=== PATIENT | male | born 1965 | race Hispanic/Latino ===

== ENCOUNTER 2017-04-19 23:08 | Inpatient (IN) | payer MEDICAID ==
--- NOTE | 2017-04-19 23:25 | ED PDOC ---
Arrival/HPI - General Time Seen by Provider: 04/19/17 23:10 Historian: Family (Sister), EMS - History of Present Illness Narrative History of Present Illness (Text): 04/19/17 23:16 Catracho Gray is a 52 year old male smoker, whose past medical history includes hypertension, chronic alcohol abuse, and chronic opiate abuse, who presents to the Emergency department brought in by EMS for unresponsiveness. EMS reports patient was found unresponsive in bed prior to arrival by family. EMS reports some improvement after receiving 0.8mg of Narcan en route. Sister reports patient was last seen normal at 22:00 yesterday evening and was lying in bed all throughout the day. Sister notes patient was recently discharged from [facility] for questionable "mini-stroke" 10 days prior and patient regularly takes Methadone and Oxycontin. HPI and ROS limited due to patient's altered mental status. Time/Duration: Prior to Arrival Symptom Course: Unchanged Activities at Onset: Rest, Light Context: Home Past Medical History - Provider Review Nursing Documentation Reviewed: Yes Family/Social History - Physician Review Nursing Documentation Reviewed: Yes Family/Social History: Unknown Family HX Allergies/Home Meds Allergies/Adverse Reactions: Allergies No Known Allergies Allergy (Verified 04/19/17 23:24) Home Medications: Home Meds Medication Instructions Recorded Confirmed Unobtainable 04/19/17 04/19/17 Review of Systems - Review of Systems Systems not reviewed;Unavailable: Altered Mental Status Physical Exam Vital Signs Reviewed: Yes Vital Signs Temp Pulse Resp BP Pulse Ox 04/20/17 02:41 88 15 106/79 99 04/20/17 02:34 85 15 100/77 98 04/20/17 02:24 88 15 100/74 99 04/20/17 02:14 90 15 102/75 99 04/20/17 02:04 92 H 15 106/79 99 04/20/17 01:54 95 H 15 113/75 100 04/20/17 01:44 95 H 15 153/96 H 99 04/20/17 01:20 92 H 15 97/70 L 100 04/20/17 01:01 93 H 15 100/71 99 04/20/17 00:55 95 H 15 104/76 99 04/20/17 00:50 15 99 04/20/17 00:45 107 H 26 H 175/92 H 94 L 04/20/17 00:33 105 H 26 H 94/62 L 81 L 04/19/17 23:53 118 H 25 H 145/97 H 93 L 04/19/17 23:49 98.4 F 114 H 25 H 139/91 H 94 L 04/19/17 23:30 118 H 25 H 95 04/19/17 23:19 121 H 26 H 93 L Temperature: Afebrile Blood Pressure: Normal Pulse: Tachycardic Respiratory Rate: Normal Pain Distress: None Mental Status: Positive for: Lethargic, other (Non-communicative) - Systems Exam Head: Present: Atraumatic, Normocephalic Pupils: Present: Other (Pupils dilated but reactive) Conjunctiva: Present: Normal Ears: Present: NORMAL TM Mouth: Present: Dry Neck: Present: Normal Range of Motion Respiratory/Chest: Present: Clear to Auscultation, Good Air Exchange. No: Respiratory Distress, Accessory Muscle Use Cardiovascular: Present: Normal S1, S2, Tachycardic. No: Murmurs Abdomen: Present: Normal Bowel Sounds. No: Tenderness, Distention, Peritoneal Signs Upper Extremity: No: Cyanosis, Edema Lower Extremity: Present: Neurovascularly Intact. No: Edema Neurological: Present: Other (Tonic posturing of upper and lower extremities, non-communicative) Skin: Present: Warm, Dry, Normal Color. No: Rashes Psychiatric: Present: Lethargic Medical Decision Making ED Course and Treatment: 04/19/17 23:16 Impression: 52 year old male presents for unresponsiveness prior to arrival. Differential Diagnosis included but are not limited to: seizure vs. sepsis vs. cerebral hemorrhage Plan: -- CT Head w/o contrast -- EKG -- Chest X-ray -- Labs, VBG, blood cultures -- Urinalysis, urine cultures -- Ativan -- Reassess and disposition Progress Notes: 04/19/17 23:55 Pt tachycardic, lactate:8,4, WBC: 16.0. Code Sepsis called. 04/20/17 00:20 Reviewed EKG, sinus tachycardia at 107 bpm. Non-specific T wave changes, 04/20/17 00:36 Pt with periods of apnea, decreasing O2 saturation, will intubate. 04/20/17 00:40 PROCEDURE: INTUBATION Performed by the emergency provider Consent: Discussion of the risks, benefits, and alternatives to the procedure, along with informed consent was precluded by the urgency of the procedure and the patient condition. Timeout: A timeout to verify the correct patient, procedure, and site was performed. Indication: Respiratory distress, decreasing oxygen saturation Pre-oxygenation: [id number] Medications: Etomidates, Propofol. See MAR for details. ETT Size: 7.5 gauge Confirmation: Cords directly visualized as tube passed, good bilateral breath sounds, positive CO2 detector color change, tube fogging, adequate chest rise, improving pulse oximetry reading, improved skin color, and absence of gastric sounds,. ETT Secured: The cuff was inflated and the tube was secured appropriately at a distance of 23 cm at the lip. Post-Procedure: There were no immediate complications. CXR Confirmation: Yes 04/20/17 00:53 Case discussed with medical scientific officer agricultural economics teacher, who is aware and agrees with plan. 04/20/17 00:[address] Gleason, security field supervisor, who is aware and agrees with plan. Accepts pt in to hospitalist service. Pt will be admitted to ICU for sepsis and altered mental status. 04/20/17 01:28 Reviewed radiology, Chest X-ray shows ET tube above the nathalie, no acute processes. CT Head shows: Left lateral orbital skin piercing. No intracranial hemorrhage. No intracranial edema. No evidence of infarct. There is partial opacification of the right maxillary sinus. It could be chronic or alternatively represent acute sinusitis. Clinical correlation is recommended. The mastoid air cells are clear. Questionable periapical lucency left mandibular canine and premolar teeth incompletely evaluated. IMPRESSION: No acute intracranial findings. Sinus disease. - Critical Care Critical Care Minutes: 45 minutes - Lab Interpretations Lab Results: 04/19/17 23:27 04/19/17 23:27 Lab Results 04/20/17 00:00: Urine Opiates Screen Negative, Urine Methadone Screen Positive H , Ur Barbiturates Screen Negative, Ur Phencyclidine Scrn Negative, Ur Amphetamines Screen Negative, U Benzodiazepines Scrn Positive H, U Oth Cocaine Metabols Negative, U Cannabinoids Screen Negative 04/19/17 23:27: Sodium 143, Chloride 99, Potassium 6.3 H*, Carbon Dioxide 22, Anion Gap 28 H, BUN 33 H, Creatinine 1.4, Est GFR ( Amer) > 60, Est GFR ( Non-Af Amer) 53, Random Glucose 129 H, Calcium 10.3, Phosphorus 4.5, Magnesium 2.2, Total Bilirubin 1.4 H, AST 53, ALT 19, Alkaline Phosphatase 206 H, Total Protein 9.7 H, Albumin 4.9 H, Globulin 4.8, Albumin/Globulin Ratio 1.0 L 04/19/17 23:27: pO2 60 H, VBG pH 7.27 L, VBG pCO2 60.0, VBG HCO3 27.6, VBG Total CO2 29.4 H, VBG O2 Sat (Calc) 92.2 H, VBG Base Excess -0.6 L, VBG Potassium 9.9 H*, Sodium 137.0, Chloride 98.0, Glucose 133 H, Lactate 8.4 H*, FiO2 21.0, Venous Blood Potassium 9.9 H* 04/19/17 23:27: Urine Color Yellow, Urine Appearance Turbid, Urine pH 6.0, Ur Specific Axis >= 1.030, Urine Protein >=300 H, Urine Glucose (UA) Negative, Urine Ketones Negative, Urine Blood Large H, Urine Nitrate Negative, Urine Bilirubin Negative, Urine Urobilinogen 0.2, Ur Leukocyte Esterase Negative, Urine RBC Tntc, Urine WBC 0 - 2, Ur Epithelial Cells 1 - 3, Calcium Oxalate Crystal Mod, Triple Phos Crystals Many, Urine Bacteria Many 04/19/17 23:27: PT 10.8, INR 1.00, APTT 28.7 04/19/17 23:27: WBC 16.1 H, RBC 5.41, Hgb 18.7 H*, Hct 57.0 H*, MCV 105.4 H, MCH 34.6, MCHC 32.8, RDW 12.6, Plt Count 208, MPV 11.6 H, Gran % 72.1 H, Lymph % (Auto) 13.2 L, Mccreary % (Auto) 14.5 H, Eos % (Auto) 0.0 L, Baso % (Auto) 0.2, Gran # 11.60 H, Lymph # 2.1, Mccreary # 2.3 H, Eos # 0.0, Baso # 0.03 04/19/17 23:13: POC Glucose (mg/dL) 73 04/19/17 00:29: pCO2 44, pO2 44.0 L*, HCO3 32.0 H, ABG pH 7.47 H, ABG Total CO2 33.4 H, ABG O2 Saturation 88.0 L, ABG O2 Content 19.7, ABG Base Excess 7.2 H, ABG Hemoglobin 16.8, ABG Carboxyhemoglobin 4.2 H, POC ABG HHb (Measured) 11.4 H , ABG Methemoglobin 0.7, ABG O2 Capacity 22.4, Hgb O2 Saturation 83.7 L, FiO2 32.0 I have reviewed the lab results: Yes - RAD Interpretation Radiology Orders: 04/19/17 23:31 CHEST PORTABLE [RAD] Stat 04/19/17 23:32 HEAD W/O CONTRAST [CT] Stat - EKG Interpretation Interpreted by ED Physician: Yes Type: 12 lead EKG - Medication Orders Current Medication Orders: Heparin Sodium (Porcine) (Heparin) 5,000 units SC Q12 CATHERINE PRN Reason: Protocol Propofol (Diprivan) 1,000 mg in 100 mls @ 2.722 mls/hr IV .Q24H PRN; Protocol; 5 MCG/KG/MIN PRN Reason: TITRATE PER MD ORDER Last Admin: 04/20/17 01:55 Dose: 2.722 mls/hr eMAR Start Stop Document 04/20/17 01:55 SS (Rec: 04/20/17 01:55 SS [id number]) Intravenous Solution Start Date 04/20/17 Start Time 01:55 Sodium Chloride (Sodium Chloride 0.9%) 1,000 mls @ 100 mls/hr IV .Q10H CATHERINE Last Admin: 04/20/17 03:18 Dose: 100 mls/hr eMAR Start Stop Document 04/20/17 03:18 MHA (Rec: 04/20/17 03:[address] [id number]) Intravenous Solution Start Date 04/20/17 Start Time 03:18 Vancomycin HCl (Vancomycin 1gm) 1 gm in 250 mls @ 167 mls/hr IVPB DAILY CATHERINE PRN Reason: Protocol Pantoprazole Sodium (Protonix Inj) 40 mg IVP DAILY CATHERINE Discontinued Medications Albuterol Sulfate (Albuterol 0.5% Inhal Joann (2.5 Mg/0.5 Ml) Ud) 15 mg IH STAT STA Stop: 04/20/17 00:30 Last Admin: 04/20/17 01:00 Dose: 15 mg Dextrose (Dextrose 50% Inj) 50 ml IVP ONCE ONE Stop: 04/20/17 00:08 Last Admin: 04/20/17 01:17 Dose: 50 ml IVP Administration Document 04/20/17 01:17 SS (Rec: 04/20/17 01:17 SS [id number]) Charges for Administration # of IVP Administrations 1 Etomidate (Amidate) 20 mg IVP STAT STA Stop: 04/20/17 00:46 Last Admin: 04/20/17 01:56 Dose: 20 mg IVP Administration Document 04/20/17 01:56 SS (Rec: 04/20/17 01:56 SS [id number]) Charges for Administration # of IVP Administrations 1 Sodium Chloride 2,720 ml/ IV (SUPPLIES) 2,720 mls @ 5,443.08 mls/hr IV ONCE ONE PRN Reason: 60 ML/KG/HR Stop: 04/20/17 00:06 Last Admin: 04/20/17 00:17 Dose: 5,443.08 mls/hr eMAR Start Stop Document 04/20/17 00:17 SS (Rec: 04/20/17 01:17 SS [id number]) Intravenous Solution Start Date 04/20/17 Start Time 00:17 Ceftriaxone Sodium (Rocephin 2 Gm Ivpb) 2 gm in 100 mls @ 100 mls/hr IVPB STAT STA PRN Reason: Protocol Stop: 04/20/17 01:21 Last Admin: 04/20/17 00:55 Dose: 100 mls/hr eMAR Start Stop Document 04/20/17 00:55 SS (Rec: 04/20/17 01:18 SS [id number]) Intravenous Solution Start Date 04/20/17 Start Time 00:55 Vancomycin HCl (Vancomycin 1gm) 1 gm in 250 mls @ 167 mls/hr IVPB STAT STA PRN Reason: Protocol Stop: 04/20/17 01:51 Last Admin: 04/20/17 02:11 Dose: 167 mls/hr eMAR Start Stop Document 04/20/17 02:11 SS (Rec: 04/20/17 02:12 SS [id number]) Intravenous Solution Start Date 04/20/17 Start Time 02:00 Piperacillin Sod/Tazobactam Sod (Zosyn 3.375 In Ns 100ml) 100 mls @ 200 mls/hr IVPB STAT STA PRN Reason: Protocol Stop: 04/20/17 02:55 Last Admin: 04/20/17 03:17 Dose: 200 mls/hr eMAR Start Stop Document 04/20/17 03:17 MHA (Rec: 04/20/17 03:17 MHA [id number]) Intravenous Solution Start Date 04/20/17 Start Time 03:17 End Date 04/20/17 End time 04:17 Total Infusion Time 60 Insulin Human Regular (Humulin R) 10 units IVP STAT STA Stop: 04/20/17 00:08 Last Admin: 04/20/17 01:17 Dose: 10 units MAR Blood Glucose Document 04/20/17 01:17 SS (Rec: 04/20/17 01:17 SS [id number]) Blood Glucose Finger Stick Blood Glucose (70-120) 73 IVP Administration Document 04/20/17 01:17 SS (Rec: 04/20/17 01:17 SS [id number]) Charges for Administration # of IVP Administrations 1 Lorazepam (Ativan) 2 mg IVP ONCE ONE Stop: 04/19/17 23:26 Last Admin: 04/19/17 23:50 Dose: 2 mg IVP Administration Document 04/19/17 23:50 SS (Rec: 04/19/17 23:50 SS [id number]) Charges for Administration # of IVP Administrations 1 Lorazepam (Ativan) 2 mg IVP ONCE ONE Stop: 04/19/17 23:31 Last Admin: 04/19/17 23:50 Dose: 2 mg IVP Administration Document 04/19/17 23:50 SS (Rec: 04/19/17 23:50 SS [id number]) Charges for Administration # of IVP Administrations 1 Propofol (Diprivan) 50 mg IVP ONCE ONE Stop: 04/20/17 00:46 Last Admin: 04/20/17 02:16 Dose: 50 mg IVP Administration Document 04/20/17 02:16 SS (Rec: 04/20/17 02:16 SS [id number]) Charges for Administration # of IVP Administrations 1 Sodium Bicarbonate (Sodium Bicarbonate 8.4% (50 Meq) Syringe) 50 meq IVP ONCE ONE Stop: 04/20/17 00:11 Last Admin: 04/20/17 00:17 Dose: 50 meq IVP Administration Document 04/20/17 00:17 SS (Rec: 04/20/17 01:18 SS [id number]) Charges for Administration # of IVP Administrations 1 Sodium Polystyrene Sulfonate (Kayexalate Oral Susp) 30 gm GA STAT STA Stop: 04/20/17 00:12 Last Admin: 04/20/17 01:56 Dose: 30 gm - Scribe Statement The provider has reviewed the documentation as recorded by the Otis Mayfield Provider Scribe Attestation: All medical record entries made by the Otis were at my direction and personally dictated by me. I have reviewed the chart and agree that the record accurately reflects my personal performance of the history, physical exam, medical decision making, and the department course for this patient. I have also personally directed, reviewed, and agree with the discharge instructions and disposition. Disposition/Present on Arrival - Present on Arrival Any Indicators Present on Arrival: No History of DVT/PE: No History of Uncontrolled Diabetes: No Urinary Catheter: No History of Decub. Ulcer: No History Surgical Site Infection Following: None - Disposition Have Diagnosis and Disposition been Completed?: Yes Diagnosis: Altered mental status, Sepsis, Hyperkalemia Disposition: HOSPITALIZED Disposition Time: 01:20 Patient Plan: Admission Patient Problems: Current Active Problems Problem Status Onset Altered mental status Acute Hyperkalemia Acute Sepsis Acute Condition: GUARDED
[2017-04-19 23:47] LABS: URINE BILIRUBIN NEGATIVE (NEGATIVE); URINE BLOOD LARGE (NEGATIVE); URINE GLUCOSE (UA) NEGATIVE (NEGATIVE); URINE KETONE NEGATIVE (NEGATIVE); URINE LEUKOCYTE ESTERASE NEGATIVE Leu/uL (NEGATIVE); URINE PROTEIN >=300 mg/dL (<30 mg/dL); URINE UROBILINOGEN 0.2 E.U./dL (<1 E.U./dL); VENOUS BLOOD GAS BASE EXCESS -0.6 mmol/L (0.0-2.0); VENOUS BLOOD PH 7.27 (7.32-7.43)
[2017-04-19 23:56] LABS: ALKALINE PHOSPHATASE 206 U/L (38-126); ALT/SGPT 19 U/L (7-56); AST/SGOT 53 U/L (17-59); BILIRUBIN,TOTAL 1.4 mg/dL (0.2-1.3); BLOOD UREA NITROGEN 33 mg/dL (7-21); CALCIUM 10.3 mg/dL (8.4-10.5); CARBON DIOXIDE 22 mmol/L (21-33); CHLORIDE 99 mmol/L (98-107); GFR AFRICAN-AMERICAN > 60; GLUCOSE,RANDOM 129 mg/dL (70-110); MAGNESIUM 2.2 mg/dL (1.7-2.2); PHOSPHOROUS 4.5 mg/dL (2.5-4.5); POTASSIUM 6.3 mmol/L (3.6-5.0); SODIUM 143 mmol/L (132-148); TOTAL PROTEIN 9.7 g/dL (5.8-8.3)
[2017-04-20] LABS: PARTIAL THROMBOPLASTIN TIME 28.7 Seconds (23.7-30.8)
[2017-04-20 00:01] LABS: BASO # 0.03 K/mm3 (0.0-2.0); BASO % 0.2 % (0.0-3.0); GRAN # 11.6 (1.4-6.5); GRAN % 72.1 % (50.0-68.0); LYMPH # 2.1 (1.2-3.4); LYMPH % 13.2 % (22.0-35.0); MEAN CORPUSCULAR HEMOGLOBIN 34.6 pg (25.0-35.0); MEAN CORPUSCULAR HGB CONC 32.8 g/dl (31.0-37.0); MEAN PLATELET VOLUME 11.6 fl (7.0-11.0); MONO # 2.3 (0.1-0.6); MONO % 14.5 % (1.0-6.0); RED CELL DISTRIBUTION WIDTH 12.6 % (11.5-14.5); WHITE BLOOD COUNT 16.1 10^3/ul (4.5-11.0)
[2017-04-20 00:07] LABS: URINE APPEARANCE TURBID (CLEAR); URINE COLOR YELLOW (YELLOW)
[2017-04-20] MEDS ORDERED: Dextrose 50% SYRINGE Inj (50 ml) IVP ONE (00:07)
[2017-04-20] MEDS ORDERED: Insulin Regular 1 UNITS/0.01 ML ML IVP STA (00:07)
[2017-04-20] MEDS ORDERED: Albuterol 0.083% Inhal Sol (2.5 mg/3 mL) UD IH STA (00:09)
[2017-04-20] MEDS ORDERED: Sodium Bicarbonate (8.4%) 50 Meq Syringe IVP ONE (00:10)
[2017-04-20] MEDS ORDERED: Sod Polystyrene Sulf 15 gm/60 ml Susp PR STA (00:11)
[2017-04-20 00:14] LABS: URINE RBC TNTC /hpf (0-2)
[2017-04-20 00:15] LABS: URINE WBC 0 - 2 /hpf (0-6)
[2017-04-20 00:16] LABS: URINE CALCIUM OXALATE CRYSTALS MOD /hpf
[2017-04-20 00:22] LABS: URINE TRIPLE PHOSPHATE CRYSTAL MANY /hpf
[2017-04-20] MEDS ORDERED: cefTRIAXone 2 GM IN NS 2 GM/100 ML BAG IVPB STA (00:22)
[2017-04-20] MEDS ORDERED: Vancomycin 1gm in NS 250ml 1 GM/250 ML BAG IVPB STA (00:22)
[2017-04-20 00:23] LABS: URINE BACTERIA MANY (NEG)
[2017-04-20] MEDS ORDERED: Albuterol 0.5% Inhal Sol (2.5 mg/0.5 ml) UD IH STA (00:29)
[2017-04-20 00:33] LABS: ARTERIAL BLOOD GAS O2 CAPACITY 22.4 mL/dl (16-24); ARTERIAL BLOOD GAS O2 CONTENT 19.7 ML/dl (15-23); ARTERIAL BLOOD GAS PH 7.47 (7.35-7.45); ARTERIAL BLOOD HGB O2 SAT 83.7 % (95.0-98.0); CARBOXYHEMOGLOBIN 4.2 % (0.5-1.5); HHB 11.4 % (0-5); METHEMOGLOBIN 0.7 % (0.0-3.0)
[2017-04-20] MEDS ORDERED: Etomidate 20 mg/10ml Inj IV ONE (00:37)
[2017-04-20] MEDS ORDERED: Propofol 10 mg/ml Inj (20 ML) ONE (00:44)
[2017-04-20] MEDS ORDERED: Etomidate 20 mg/10ml Inj IVP STA (00:45)
[2017-04-20] MEDS ORDERED: Propofol 10 mg/ml Inj (20 ML) IVP ONE (00:45)
--- NOTE | 2017-04-20 01:17 | CT ---
EXAM: CT Head Without Intravenous Contrast EXAM DATE/TIME: 04/19/2017 11:32 PM CLINICAL HISTORY: 52 years old, male; Signs and symptoms; Altered mental status/memory loss; Additional info: AMS TECHNIQUE: Axial computed tomography images of the head/brain without intravenous contrast. All CT scans at this facility use one or more dose reduction techniques, viz.: automated exposure control; ma/kV adjustment per patient size (including targeted exams where dose is matched to indication; i.e. head); or iterative reconstruction technique. COMPARISON: No relevant prior studies available. FINDINGS: Left lateral orbital skin piercing. No intracranial hemorrhage. No intracranial edema. No evidence of infarct. There is partial opacification of the right maxillary sinus. It could be chronic or alternatively represent acute sinusitis. Clinical correlation is recommended. The mastoid air cells are clear. Questionable periapical lucency left mandibular canine and premolar teeth incompletely evaluated. IMPRESSION: No acute intracranial findings. Sinus disease.
[2017-04-20] MEDS: Propofol 10 mg/ml 1,000 MG/100 ML VIAL IV PRN ×3 (01:55→21:00)
[2017-04-20] MEDS ORDERED: Piperacillin/Tazobact 3.375 gm 100 ML IVPB STA (02:26)
[2017-04-20] MEDS: Sodium Chloride 0.9% 1,000 ML IV SCH ×2 (03:18→17:00)
[2017-04-20 03:52] VITALS: BMI 27.7
[2017-04-20 05:25] LABS: ARTERIAL BLOOD GAS HCO3 25.4 mmol/L (21-28)
[2017-04-20 05:47] LABS: MEAN CELL VOLUME 105.4 fl (80.0-105.0)
[2017-04-20 05:58] LABS: BASO # 0.02 K/mm3 (0.0-2.0); BASO % 0.2 % (0.0-3.0); GRAN # 6.69 (1.4-6.5); GRAN % 70.1 % (50.0-68.0); HEMATOCRIT 43.3 % (42.0-52.0); LYMPH # 1.6 (1.2-3.4); LYMPH % 16.8 % (22.0-35.0); MEAN CELL VOLUME 103.1 fl (80.0-105.0); MEAN CORPUSCULAR HEMOGLOBIN 33.1 pg (25.0-35.0); MEAN CORPUSCULAR HGB CONC 32.1 g/dl (31.0-37.0); MEAN PLATELET VOLUME 11.1 fl (7.0-11.0); MONO # 1.2 (0.1-0.6); MONO % 12.9 % (1.0-6.0); RED CELL DISTRIBUTION WIDTH 12.5 % (11.5-14.5); WHITE BLOOD COUNT 9.5 10^3/ul (4.5-11.0)
[2017-04-20 06:02] LABS: BLOOD UREA NITROGEN 28 mg/dL (7-21); CALCIUM 8.2 mg/dL (8.4-10.5); CARBON DIOXIDE 27 mmol/L (21-33); CHLORIDE 109 mmol/L (98-107); GFR AFRICAN-AMERICAN > 60; GLUCOSE,RANDOM 105 mg/dL (70-110); POTASSIUM 4.3 mmol/L (3.6-5.0); SODIUM 143 mmol/L (132-148)
[2017-04-20 06:04] LABS: VENOUS BLOOD GAS BASE EXCESS 3.1 mmol/L (0.0-2.0); VENOUS BLOOD PH 7.41 (7.32-7.43)
--- NOTE | 2017-04-20 07:03 | CP.PCM.HP ---
<Len Shaffer - Last Filed: 04/20/17 07:09> History of Present Illness - History of Present Illness History of Present Illness: Chief Complaint Patient found unresponsive HPI Patient is a 52 year old male with a past medical history of HTN, chronic alcohol abuse, and chronic opiate abuse who was found unresponsive by family. EMS was called and administered 0.8 narcan which successfully aroused the patient. When brought to the ED patient was given 2 mg of Ativan. Patient's oxygen saturation was in the upper 80's and was intubated for airway protection. Great portion of exam was given by ED physician. ROS and remainder of history was limited due to patient's being intubated. Present on Admission - Present on Admission Any Indicators Present on Admission: No Review of Systems - Review of Systems Systems not reviewed;Unavailable: Intubated Past Patient History - Past Social History Smoking Status: Current Some Days Smoker - CARDIAC Hx Hypertension: Yes - PULMONARY Hx Respiratory Disorders: No - NEUROLOGICAL HX Cerebrovascular Accident: Yes - HEENT Hx HEENT Problems: No - RENAL Hx Chronic Kidney Disease: No - ENDOCRINE/METABOLIC Hx Endocrine Disorders: No - HEMATOLOGICAL/ONCOLOGICAL Hx Blood Disorders: No - INTEGUMENTARY Hx Dermatological Problems: No Other/Comment: hole in the lower back,tatoos on the left arm and back of the neck,piercing onth left eyebrow - MUSCULOSKELETAL/RHEUMATOLOGICAL Hx Falls: No - GASTROINTESTINAL Hx Gastrointestinal Disorders: No - GENITOURINARY/GYNECOLOGICAL Hx Genitourinary Disorders: No - PSYCHIATRIC Hx Psychophysiologic Disorder: No Hx Substance Use: Yes (oxycodone,methadone) Other/Comment: chronic alcohol abuse,opiate abuse on methadone and oxycontin - SURGICAL HISTORY Hx Surgeries: No - ANESTHESIA Hx Anesthesia: Yes Meds Allergies/Adverse Reactions: Allergies Allergy/AdvReac Type Severity Reaction Status Date / Time No Known Allergies Allergy Verified 04/19/17 23:24 Physical Exam - Constitutional Appears: Toxic - Head Exam Head Exam: ATRAUMATIC, NORMAL INSPECTION, NORMOCEPHALIC - ENT Exam Additional comments: Intubated - Neck Exam Neck exam: Positive for: Normal Inspection - Respiratory Exam Respiratory Exam: Clear to Auscultation Bilateral, NORMAL BREATHING PATTERN - Cardiovascular Exam Cardiovascular Exam: REGULAR RHYTHM, +S1, +S2 - GI/Abdominal Exam GI & Abdominal Exam: Normal Bowel Sounds, Soft - Extremities Exam Extremities exam: Positive for: normal inspection - Neurological Exam Neurological exam: Altered - Skin Skin Exam: Normal Color, Warm Results - Vital Signs Recent Vital Signs: Last Vital Signs Temp 98.7 F 04/20/17 04:00 Pulse 82 04/20/17 06:00 Resp 15 04/20/17 06:00 BP 125/77 04/20/17 06:00 Pulse Ox 100 04/20/17 06:00 - Labs Result Diagrams: 04/20/17 05:00 04/20/17 05:00 Labs: Laboratory Results - last 24 hr 04/20/17 04/20/17 04/20/17 05:00 05:00 05:00 WBC 9.5 D RBC 4.20 Hgb 13.9 L D Hct 43.3 MCV 103.1 MCH 33.1 MCHC 32.1 RDW 12.5 Plt Count 151 MPV 11.1 H Gran % 70.1 H Lymph % (Auto) 16.8 L Preble % (Auto) 12.9 H Eos % (Auto) 0.0 L Baso % (Auto) 0.2 Gran # 6.69 H Lymph # 1.6 Preble # 1.2 H Eos # 0.0 Baso # 0.02 pCO2 pO2 208 H HCO3 ABG pH ABG Total CO2 ABG O2 Saturation ABG Base Excess ABG Potassium VBG pH 7.41 VBG pCO2 45.0 VBG HCO3 28.5 H VBG Total CO2 29.9 H VBG O2 Sat (Calc) 100.0 H VBG Base Excess 3.1 H VBG Potassium 4.3 Sodium 140.0 Chloride 109.0 H Glucose 105 Lactate 1.3 FiO2 21.0 Potassium Carbon Dioxide Anion Gap BUN Creatinine Est GFR ( Amer) Est GFR (Non-Af Amer) Random Glucose Lactic Acid Calcium Arterial Blood Potassium Venous Blood Potassium 4.3 Alcohol, Quantitative < 10 04/20/17 04/20/17 04/20/17 05:00 05:00 05:21 WBC RBC Hgb Hct MCV MCH MCHC RDW Plt Count MPV Gran % Lymph % (Auto) Preble % (Auto) Eos % (Auto) Baso % (Auto) Gran # Lymph # Preble # Eos # Baso # pCO2 41 pO2 227.0 H HCO3 25.4 ABG pH 7.40 ABG Total CO2 26.7 ABG O2 Saturation 99.2 H ABG Base Excess 0.5 ABG Potassium 3.9 VBG pH VBG pCO2 VBG HCO3 VBG Total CO2 VBG O2 Sat (Calc) VBG Base Excess VBG Potassium Sodium 143 140.0 Chloride 109 H 112.0 H Glucose 98 Lactate 1.2 FiO2 100.0 Potassium 4.3 Carbon Dioxide 27 Anion Gap 11 BUN 28 H Creatinine 1.0 Est GFR ( Amer) > 60 Est GFR (Non-Af Amer) > 60 Random Glucose 105 Lactic Acid 1.1 Calcium 8.2 L Arterial Blood Potassium 3.9 Venous Blood Potassium Alcohol, Quantitative Assessment & Plan - Assessment and Plan (Free Text) Plan: Assessment 52 year old male found unresponsive at home with history of opiate and methadone abuse Plan 1. Leukocytosis - Find source - ID consulted; recs appreciated - Procalcitonin - Vanc/Zosyn 2. DVT/GI prophylaxis - Heparin/Protonix <Sami Gleason MD - Last Filed: 04/21/17 11:41> Results - Vital Signs Recent Vital Signs: Last Vital Signs Temp 99.4 F 04/21/17 04:00 Pulse 81 04/21/17 06:50 Resp 15 04/20/17 06:00 BP 142/82 04/21/17 06:40 Pulse Ox 96 04/21/17 06:50 - Labs Result Diagrams: 04/21/17 05:00 04/21/17 05:00 Labs: Laboratory Results - last 24 hr 04/20/17 04/21/17 04/21/17 05:00 05:00 05:00 WBC 9.1 RBC 4.45 Hgb 14.7 Hct 45.8 MCV 102.9 MCH 33.0 MCHC 32.1 RDW 12.6 Plt Count 153 MPV 11.1 H pCO2 pO2 HCO3 ABG pH ABG Total CO2 ABG O2 Saturation ABG O2 Content ABG Base Excess ABG Hemoglobin ABG Carboxyhemoglobin POC ABG HHb (Measured) ABG Methemoglobin ABG O2 Capacity Hgb O2 Saturation FiO2 Sodium 144 Potassium 3.9 Chloride 109 H Carbon Dioxide 28 Anion Gap 11 BUN 19 Creatinine 1.0 Est GFR ( Amer) > 60 Est GFR (Non-Af Amer) > 60 Random Glucose 87 Calcium 8.7 Total Bilirubin 1.0 AST 56 ALT 28 Alkaline Phosphatase 120 Ammonia Total Protein 6.2 Albumin 3.1 Globulin 3.2 Albumin/Globulin Ratio 1.0 L Procalcitonin 0.60 H 04/21/17 04/21/17 05:23 08:35 WBC RBC Hgb Hct MCV MCH MCHC RDW Plt Count MPV pCO2 39 pO2 53.0 L HCO3 24.7 ABG pH 7.41 ABG Total CO2 25.9 ABG O2 Saturation 92.2 L ABG O2 Content 16.5 ABG Base Excess 0.1 ABG Hemoglobin 13.1 ABG Carboxyhemoglobin 1.7 H POC ABG HHb (Measured) 7.6 H ABG Methemoglobin 1.1 ABG O2 Capacity 17.9 Hgb O2 Saturation 89.6 L FiO2 50.0 Sodium Potassium Chloride Carbon Dioxide Anion Gap BUN Creatinine Est GFR ( Amer) Est GFR (Non-Af Amer) Random Glucose Calcium Total Bilirubin AST ALT Alkaline Phosphatase Ammonia 20 Total Protein Albumin Globulin Albumin/Globulin Ratio Procalcitonin Attending/Attestation - Attestation I have personally seen and examined this patient.: Yes I have fully participated in the care of the patient.: Yes I have reviewed all pertinent clinical information: Yes Notes (Text): -I agree with the above H&P completed by the resident physician with the following additions and/or changes: -The patient is a 52 year old man with a reported history of chronic alcohol and opiate abuse who p/w with AMS/unresponsive (requiring intubation in ED for airway protection), likely due to a combination of SIRS and opiate intoxication. We will start empiric IV antibiotics and check a procalcitonin level. ID has also been consulted.
[2017-04-20] MEDS: Vancomycin 1gm in NS 250ml 1 GM/250 ML BAG IVPB SCH (11:02)
[2017-04-20] MEDS: Piperacillin/Tazobact 3.375 gm 100 ML IVPB SCH ×2 (11:02→18:15)
--- NOTE | 2017-04-20 11:02 | RAD ---
HISTORY: Sepsis Patient COMPARISON: No prior. FINDINGS: LUNGS: No active pulmonary disease. PLEURA: No significant pleural effusion identified, no pneumothorax apparent. CARDIOVASCULAR: Cardiomegaly. No evidence of acute, significant cardiovascular disease. OSSEOUS STRUCTURES: No significant abnormalities. VISUALIZED UPPER ABDOMEN: Normal. OTHER FINDINGS: Satisfactory position of endotracheal tube tip. IMPRESSION: No active disease. Please note: No preliminary report/ innterpretation of this examination provided by emergency department personnel.
--- NOTE | 2017-04-20 11:30 | CP.PCM.PN ---
<Mike Wade - Last Filed: 04/20/17 11:26> Subjective - Date & Time of Evaluation Date of Evaluation: 04/20/17 Time of Evaluation: 11:26 - Subjective Subjective: Pt seen and examined at bedside. Pt intubated and on sedation at this time. No acute events since admission. No one at bedside. Objective - Vital Signs/Intake and Output Vital Signs (last 24 hours): Temp Pulse Resp BP Pulse Ox 98.7 F 82 15 125/77 100 04/20/17 04:00 04/20/17 06:00 04/20/17 06:00 04/20/17 06:00 04/20/17 06:00 Intake and Output: 04/20/17 04/20/17 06:59 18:59 Intake Total 4482 Output Total 600 Balance 3882 - Medications Medications: Current Medications Heparin Sodium (Porcine) (Heparin) 5,000 units SC Q12 [facility] PRN Reason: Protocol Last Admin: 04/20/17 11:04 Dose: 5,000 units Propofol (Diprivan) 1,000 mg in 100 mls @ 2.722 mls/hr IV .Q24H PRN; Protocol; 5 MCG/KG/MIN PRN Reason: TITRATE PER MD ORDER Last Admin: 04/20/17 11:17 Dose: 20 mcg/kg/min, 10.886 mls/hr Sodium Chloride (Sodium Chloride 0.9%) 1,000 mls @ 100 mls/hr IV .Q10H [facility] Last Admin: 04/20/17 03:18 Dose: 100 mls/hr Vancomycin HCl (Vancomycin 1gm) 1 gm in 250 mls @ 167 mls/hr IVPB DAILY [facility] PRN Reason: Protocol Last Admin: 04/20/17 11:02 Dose: 167 mls/hr Piperacillin Sod/Tazobactam Sod (Zosyn 3.375 In Ns 100ml) 100 mls @ 200 mls/hr IVPB Q6 [facility] PRN Reason: Protocol Stop: 04/27/17 12:01 Last Admin: 04/20/17 11:02 Dose: 200 mls/hr Pantoprazole Sodium (Protonix Inj) 40 mg IVP DAILY [facility] Last Admin: 04/20/17 11:05 Dose: 40 mg - Labs Labs: 04/20/17 05:00 04/20/17 05:00 PT 10.8 Seconds (9.9-11.8) 04/19/17 23:27 INR 1.00 (0.93-1.08) 04/19/17 23:27 APTT 28.7 Seconds (23.7-30.8) 04/19/17 23:27 - Constitutional Appears: Toxic, In Acute Distress - Head Exam Head Exam: ATRAUMATIC, NORMAL INSPECTION, NORMOCEPHALIC - Eye Exam Pupil Exam: Fixed, Miosis - ENT Exam ENT Exam: Mucous Membranes Moist Additional comments: ET tube in place - Neck Exam Neck Exam: Normal Inspection. absent: Lymphadenopathy - Respiratory Exam Respiratory Exam: Decreased Breath Sounds (Througout right lung field). absent : Rales, Rhonchi, Wheezes - Cardiovascular Exam Cardiovascular Exam: RRR, +S1, +S2 - GI/Abdominal Exam GI & Abdominal Exam: Soft, Normal Bowel Sounds. absent: Tenderness - Exam Additional comments: Kenney in place - Extremities Exam Extremities Exam: absent: Calf Tenderness, Pedal Edema - Neurological Exam Additional comments: Intubated, on sedation - Skin Skin Exam: Intact, Normal Color, Warm Assessment and Plan - Assessment and Plan (Free Text) Plan: 52 y/o M with PMH of methadone and opioid abuse presented unresponsive, in hypoxemic respiratory failure in the setting of severe sepsis secondary to likely aspiration pneumonia. Pt was found unresponsive by family and it is unknown how long pt was in this state. Chest x-ray displays right sided infiltrate and pneumonia, likely indicating aspiration. Initial labs elevated labs secondary to hemoconcentration, have normalized with IVF. Pt will remain on ventilator and continue broad spectrum antibiotics. ID consulted at this time. 1. Hypoxemic respiratory failure in the setting of severe sepsis secondary to likely aspiration pneumonia - Intubated, on sedation - Continue Vancomycin and Zosyn - NS @ 100 cc/hr - Repeat CXR in AM - ABG daily - Blood and urine cultures pending - ID consulted, Dr. Arroyo 2. Methadone and Opioid abuse - Consider Narcan administration/drip 3. PPX - Heparin - Protonix Mauro, PGY-2 <Kishor Oglesby - Last Filed: 04/20/17 14:29> Objective - Vital Signs/Intake and Output Vital Signs (last 24 hours): Temp Pulse Resp BP Pulse Ox 98.7 F 82 15 125/77 100 04/20/17 04:00 04/20/17 06:00 04/20/17 06:00 04/20/17 06:00 04/20/17 06:00 Intake and Output: 04/20/17 04/20/17 06:59 18:59 Intake Total 4482 Output Total 600 Balance 3882 - Medications Medications: Current Medications Heparin Sodium (Porcine) (Heparin) 5,000 units SC Q12 [facility] PRN Reason: Protocol Last Admin: 04/20/17 11:04 Dose: 5,000 units Propofol (Diprivan) 1,000 mg in 100 mls @ 2.722 mls/hr IV .Q24H PRN; Protocol; 5 MCG/KG/MIN PRN Reason: TITRATE PER MD ORDER Last Admin: 04/20/17 11:17 Dose: 20 mcg/kg/min, 10.886 mls/hr Sodium Chloride (Sodium Chloride 0.9%) 1,000 mls @ 100 mls/hr IV .Q10H [facility] Last Admin: 04/20/17 03:18 Dose: 100 mls/hr Vancomycin HCl (Vancomycin 1gm) 1 gm in 250 mls @ 167 mls/hr IVPB DAILY [facility] PRN Reason: Protocol Last Admin: 04/20/17 11:02 Dose: 167 mls/hr Piperacillin Sod/Tazobactam Sod (Zosyn 3.375 In Ns 100ml) 100 mls @ 200 mls/hr IVPB Q6 [facility] PRN Reason: Protocol Stop: 04/27/17 12:01 Last Admin: 04/20/17 11:02 Dose: 200 mls/hr Pantoprazole Sodium (Protonix Inj) 40 mg IVP DAILY [facility] Last Admin: 04/20/17 11:05 Dose: 40 mg - Labs Labs: 04/20/17 05:00 04/20/17 05:00 PT 10.8 Seconds (9.9-11.8) 04/19/17 23:27 INR 1.00 (0.93-1.08) 04/19/17 23:27 APTT 28.7 Seconds (23.7-30.8) 04/19/17 23:27 Attending/Attestation - Attestation I have personally seen and examined this patient.: Yes I have fully participated in the care of the patient.: Yes I have reviewed all pertinent clinical information, including history, physical exam and plan: Yes Notes (Text): 04/20/17 14:27 attending note; Patient seen and examined with resident in ICU. Patient is a 52-year-old male with a past medi history of alcohol abuse, methadone, opiate abuse is admitted after found unresponsive at home. Currently intubated. On sedation. FiO2 decreased. Weaning protocol per ICU. Possible aspiration pneumonia; continue vancomycin and Zosyn. Follow up culture results. Acute renal failure and hypoxemia is resolving. Monitor patient closely in ICU. 04/20/17 14:28
--- NOTE | 2017-04-20 14:21 | CP.PCM.CON ---
History of Present Illness - History of Present Illness History of Present Illness: 52 year old male with PMH of HTN, chronic alcohol and opioid use was brought in by family members after he was found unresposive while in bed. He apparently had been staying in bed all day the day prior to admission and before that drank a 12 pack of beer and a bottle of declan which he does almost everyday. He was recently at [facility] for confusion and was apparently found to have a "blood clot" in the brain and was started on Heparin. However, as per the sister, the patient started refusing meds and he went out of [place] and also did not want to go to a rehab facility and instead went home. This time, EMS brought him to this hospital and en route he was given Narcan and the patient became a little more awake. However, he continued to be somnolent while in the ED and was found to have elevated lactate and the patient was intubated in the ED. He was also found to have leukocytosis and Infectious Diseases consult is requested to further evaluate and manage. Full review of systems is unobtainable because the patient is currently intubated. Review of Systems - Review of Systems Systems not reviewed;Unavailable: Intubated Past Patient History - Past Social History Smoking Status: Current Some Days Smoker - CARDIAC Hx Hypertension: Yes - PULMONARY Hx Respiratory Disorders: No - NEUROLOGICAL HX Cerebrovascular Accident: Yes - HEENT Hx HEENT Problems: No - RENAL Hx Chronic Kidney Disease: No - ENDOCRINE/METABOLIC Hx Endocrine Disorders: No - HEMATOLOGICAL/ONCOLOGICAL Hx Blood Disorders: No - INTEGUMENTARY Hx Dermatological Problems: No Other/Comment: hole in the lower back,tatoos on the left arm and back of the neck,piercing onth left eyebrow - MUSCULOSKELETAL/RHEUMATOLOGICAL Hx Falls: No - GASTROINTESTINAL Hx Gastrointestinal Disorders: No - GENITOURINARY/GYNECOLOGICAL Hx Genitourinary Disorders: No - PSYCHIATRIC Hx Psychophysiologic Disorder: No Hx Substance Use: Yes (oxycodone,methadone) Other/Comment: chronic alcohol abuse,opiate abuse on methadone and oxycontin - SURGICAL HISTORY Hx Surgeries: No - ANESTHESIA Hx Anesthesia: Yes Meds Allergies/Adverse Reactions: Allergies Allergy/AdvReac Type Severity Reaction Status Date / Time No Known Allergies Allergy Verified 04/19/17 23:24 - Medications Medications: Current Medications Heparin Sodium (Porcine) (Heparin) 5,000 units SC Q12 [facility] PRN Reason: Protocol Propofol (Diprivan) 1,000 mg in 100 mls @ 2.722 mls/hr IV .Q24H PRN; Protocol; 5 MCG/KG/MIN PRN Reason: TITRATE PER MD ORDER Last Admin: 04/20/17 01:55 Dose: 2.722 mls/hr Sodium Chloride (Sodium Chloride 0.9%) 1,000 mls @ 100 mls/hr IV .Q10H [facility] Last Admin: 04/20/17 03:18 Dose: 100 mls/hr Vancomycin HCl (Vancomycin 1gm) 1 gm in 250 mls @ 167 mls/hr IVPB DAILY [facility] PRN Reason: Protocol Piperacillin Sod/Tazobactam Sod (Zosyn 3.375 In Ns 100ml) 100 mls @ 200 mls/hr IVPB Q6 [facility] PRN Reason: Protocol Stop: 04/27/17 12:01 Pantoprazole Sodium (Protonix Inj) 40 mg IVP DAILY [facility] Physical Exam - Constitutional Appears: Other (intubated, not responsive) - ENT Exam Additional comments: ET tube in place - Neck Exam Neck exam: Negative for: Meningismus - Respiratory Exam Respiratory Exam: Decreased Breath Sounds - Cardiovascular Exam Cardiovascular Exam: +S1, +S2 - GI/Abdominal Exam GI & Abdominal Exam: Soft. absent: Tenderness Results - Vital Signs Recent Vital Signs: Last Vital Signs Temp 98.7 F 04/20/17 04:00 Pulse 82 04/20/17 06:00 Resp 15 04/20/17 06:00 BP 125/77 04/20/17 06:00 Pulse Ox 100 04/20/17 06:00 - Labs Result Diagrams: 04/20/17 05:00 04/20/17 05:00 Labs: Laboratory Results - last 24 hr 04/20/17 04/20/17 04/20/17 05:00 05:00 05:00 WBC 9.5 D RBC 4.20 Hgb 13.9 L D Hct 43.3 MCV 103.1 MCH 33.1 MCHC 32.1 RDW 12.5 Plt Count 151 MPV 11.1 H Gran % 70.1 H Lymph % (Auto) 16.8 L [place] % (Auto) 12.9 H Eos % (Auto) 0.0 L Baso % (Auto) 0.2 Gran # 6.69 H Lymph # 1.6 [place] # 1.2 H Eos # 0.0 Baso # 0.02 pCO2 pO2 208 H HCO3 ABG pH ABG Total CO2 ABG O2 Saturation ABG Base Excess ABG Potassium VBG pH 7.41 VBG pCO2 45.0 VBG HCO3 28.5 H VBG Total CO2 29.9 H VBG O2 Sat (Calc) 100.0 H VBG Base Excess 3.1 H VBG Potassium 4.3 Sodium 140.0 Chloride 109.0 H Glucose 105 Lactate 1.3 FiO2 21.0 Potassium Carbon Dioxide Anion Gap BUN Creatinine Est GFR ( Amer) Est GFR (Non-Af Amer) Random Glucose Lactic Acid Calcium Arterial Blood Potassium Venous Blood Potassium 4.3 Alcohol, Quantitative < 10 04/20/17 04/20/17 04/20/17 05:00 05:00 05:21 WBC RBC Hgb Hct MCV MCH MCHC RDW Plt Count MPV Gran % Lymph % (Auto) [place] % (Auto) Eos % (Auto) Baso % (Auto) Gran # Lymph # [place] # Eos # Baso # pCO2 41 pO2 227.0 H HCO3 25.4 ABG pH 7.40 ABG Total CO2 26.7 ABG O2 Saturation 99.2 H ABG Base Excess 0.5 ABG Potassium 3.9 VBG pH VBG pCO2 VBG HCO3 VBG Total CO2 VBG O2 Sat (Calc) VBG Base Excess VBG Potassium Sodium 143 140.0 Chloride 109 H 112.0 H Glucose 98 Lactate 1.2 FiO2 100.0 Potassium 4.3 Carbon Dioxide 27 Anion Gap 11 BUN 28 H Creatinine 1.0 Est GFR ( Amer) > 60 Est GFR (Non-Af Amer) > 60 Random Glucose 105 Lactic Acid 1.1 Calcium 8.2 L Arterial Blood Potassium 3.9 Venous Blood Potassium Alcohol, Quantitative Assessment & Plan - Assessment and Plan (Free Text) Plan: Assessment Systemic Inflammatory Response Syndrome, consider due to toxic metabolic encephalopathy with ventilator-dependent respiratory failure in a patient with chronic alcohol and opioid use (Methadone and OXycontin), R/O sepsis, source to be determined HTN chronic alcohol and opioid use possible history of recent CVA Plan Started patient on Vancomycin and Zosyn pending blood, urine cx, PCT; will review CXR results; reviewed CT head which showed sinus disease but this may be chronic and probalby not enough to explain the acute clinical and laboratory findings will follow up medical records from [place] (to be procured by ICU team) will monitor clinically
[2017-04-20] MEDS: Chlorhexidine 0.12% Oral Sol 480 ml Bot PO SCH (17:59)
--- NOTE | 2017-04-20 19:42 | CARD ---
APPROVED REPORT EKG Measurement Heart [id number] <Conclusion> Sinus tachycardia Possible Left atrial enlargement Borderline ECG
[2017-04-21] MEDS: Piperacillin/Tazobact 3.375 gm 100 ML IVPB SCH ×2 (05:18)
[2017-04-21 05:27] LABS: ARTERIAL BLOOD GAS HCO3 24.7 mmol/L (21-28); ARTERIAL BLOOD GAS O2 CAPACITY 17.9 mL/dl (16-24); ARTERIAL BLOOD GAS O2 CONTENT 16.5 ML/dl (15-23); ARTERIAL BLOOD GAS PH 7.41 (7.35-7.45); ARTERIAL BLOOD HGB O2 SAT 89.6 % (95.0-98.0); CARBOXYHEMOGLOBIN 1.7 % (0.5-1.5); HHB 7.6 % (0-5); METHEMOGLOBIN 1.1 % (0.0-3.0)
[2017-04-21 06:02] LABS: HEMATOCRIT 45.8 % (42.0-52.0); MEAN CELL VOLUME 102.9 fl (80.0-105.0); MEAN CORPUSCULAR HGB CONC 32.1 g/dl (31.0-37.0); MEAN PLATELET VOLUME 11.1 fl (7.0-11.0); RED CELL DISTRIBUTION WIDTH 12.6 % (11.5-14.5); WHITE BLOOD COUNT 9.1 10^3/ul (4.5-11.0)
[2017-04-21 06:41] LABS: ALKALINE PHOSPHATASE 120 U/L (38-126); ALT/SGPT 28 U/L (7-56); AST/SGOT 56 U/L (17-59); BLOOD UREA NITROGEN 19 mg/dL (7-21); CALCIUM 8.7 mg/dL (8.4-10.5); CARBON DIOXIDE 28 mmol/L (21-33); CHLORIDE 109 mmol/L (98-107); GFR AFRICAN-AMERICAN > 60; GLUCOSE,RANDOM 87 mg/dL (70-110); POTASSIUM 3.9 mmol/L (3.6-5.0); SODIUM 144 mmol/L (132-148); TOTAL PROTEIN 6.2 g/dL (5.8-8.3)
--- NOTE | 2017-04-21 08:23 | PN ---
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 At this time, the patient is hemodynamically stable without pressors. HYSICAL EXAMINATION: VITAL SIGNS: Noted that his temperature is 98.7, pulse is 82, respirations are 15 and BP is 125/77. SKIN: Warm and dry. HEENT: Head is atraumatic and normocephalic. Eyes are reactive to light. Ears, nose and throat seemed to be within normal limits. NECK: Supple. No JVD. No thyroid enlargement. No lymph nodes. HEART: Has a regular rate and rhythm. Normal S1, S2. LUNGS: Reveal bilateral rhonchi. ABDOMEN: Soft. Decreased bowel sounds. GENITALIA AND RECTAL: Deferred. MUSCULOSKELETAL: No joint deformities. EXTREMITIES: Reveal no edema. NEUROLOGICAL: He is sedated on the ventilator. LABORATORY DATA: As far as his laboratories are concerned, his white count is 9.5, hemoglobin is 13.9, hematocrit is 43.3 with platelets of 151,000. The patient's arterial blood gas revealed pH of 7.40, pCO2 of 41, pO2 of 227. The patient's sodium is 143, potassium 4.3, chloride 109, CO2 of 27 with BUN of 28, creatinine of 1.0 and glucose of 105. CT of the head, there was no acute problems or changes. Chest x-ray is pending. IMPRESSION: This patient is unresponsive, most likely secondary to drug overdose, has a history of EtOH abuse and at this time, respiratory failure requiring ventilator support. The patient is also rule out sepsis and has a history of chronic obstructive pulmonary disease as well as hypertension. PLAN: We will continue with O2 support with ventilator and titrate the FiO2 down as tolerated. The patient will continue to aggressive pulmonary toilet. He is on heparin subcutaneous. He is on sedation with propofol and is getting Protonix as well. The patient is on IV fluids of normal saline, getting antibiotics of vancomycin and Zosyn. We will follow his chest x-ray and arterial blood gas closely. We will continue to treat aggressively along with the other consultants and primary care doctor. Siva Hadley MD [facility] # [phone]
[2017-04-21] MEDS: Vancomycin 1gm in NS 250ml 1 GM/250 ML BAG IVPB SCH (09:08)
[2017-04-21] MEDS: Chlorhexidine 0.12% Oral Sol 480 ml Bot PO SCH ×2 (09:19→17:14)
[2017-04-21] MEDS: Propofol 10 mg/ml 1,000 MG/100 ML VIAL IV PRN ×3 (09:30→22:01)
--- NOTE | 2017-04-21 09:40 | RAD ---
HISTORY: clinical evaluation COMPARISON: 04/20/2017 FINDINGS: The endotracheal tube terminates 5.5 cm proximal to the nathalie. LUNGS: There is significant patient rotation to the right. There is diffuse haziness in the right lung. The left lung is clear. PLEURA: No significant pleural effusion identified, no pneumothorax apparent. CARDIOVASCULAR: Normal. OSSEOUS STRUCTURES: No significant abnormalities. VISUALIZED UPPER ABDOMEN: Normal. OTHER FINDINGS: None. IMPRESSION: Limited portable examination due to patient rotation to the right. Allowing for this, question of layering right pleural effusion/ lower lobe consolidation.
--- NOTE | 2017-04-21 10:03 | CP.PCM.PN ---
Subjective - Date & Time of Evaluation Date of Evaluation: 04/21/17 Time of Evaluation: 09:30 - Subjective Subjective: Continues to be on the ventilator, no fevers overnight, still sedated. Objective - Vital Signs/Intake and Output Vital Signs (last 24 hours): Temp Pulse Resp BP Pulse Ox 98.4 F 78 15 160/93 H 98 04/20/17 16:00 04/20/17 18:10 04/20/17 06:00 04/20/17 18:00 04/20/17 18:10 Intake and Output: 04/20/17 04/21/17 18:59 06:59 Intake Total 1380 100 Output Total 700 Balance 680 100 - Medications Medications: Current Medications Chlorhexidine Gluconate (Peridex) 15 ml PO BID [facility] Last Admin: 04/20/17 17:59 Dose: 15 ml Heparin Sodium (Porcine) (Heparin) 5,000 units SC Q12 [facility] PRN Reason: Protocol Last Admin: 04/20/17 21:24 Dose: 5,000 units Propofol (Diprivan) 1,000 mg in 100 mls @ 2.722 mls/hr IV .Q24H PRN; Protocol; 5 MCG/KG/MIN PRN Reason: TITRATE PER MD ORDER Last Admin: 04/20/17 21:00 Dose: 20 mcg/kg/min, 10.886 mls/hr Sodium Chloride (Sodium Chloride 0.9%) 1,000 mls @ 100 mls/hr IV .Q10H [facility] Last Admin: 04/20/17 17:00 Dose: 100 mls/hr Vancomycin HCl (Vancomycin 1gm) 1 gm in 250 mls @ 167 mls/hr IVPB DAILY [facility] PRN Reason: Protocol Last Admin: 04/20/17 11:02 Dose: 167 mls/hr Piperacillin Sod/Tazobactam Sod (Zosyn 3.375 In Ns 100ml) 100 mls @ 200 mls/hr IVPB Q6 [facility] PRN Reason: Protocol Stop: 04/27/17 12:01 Last Admin: 04/21/17 05:18 Dose: 200 mls/hr Pantoprazole Sodium (Protonix Inj) 40 mg IVP DAILY [facility] Last Admin: 04/20/17 11:05 Dose: 40 mg - Labs Labs: 04/21/17 05:00 04/20/17 05:00 PT 10.8 Seconds (9.9-11.8) 04/19/17 23:27 INR 1.00 (0.93-1.08) 04/19/17 23:27 APTT 28.7 Seconds (23.7-30.8) 04/19/17 23:27 - Constitutional Appears: Other (intubated and sedated) - Head Exam Head Exam: NORMAL INSPECTION - ENT Exam Additional comments: ET tube in place - Neck Exam Neck Exam: absent: Meningismus - Respiratory Exam Respiratory Exam: Decreased Breath Sounds. absent: Rales - Cardiovascular Exam Cardiovascular Exam: +S1, +S2 - GI/Abdominal Exam GI & Abdominal Exam: Soft. absent: Tenderness Assessment and Plan - Assessment and Plan (Free Text) Plan: Assessment Systemic Inflammatory Response Syndrome, improved, consider due to toxic metabolic encephalopathy with ventilator-dependent respiratory failure in a patient with chronic alcohol and opioid use (Methadone and OXycontin), R/O sepsis, but so far no source has been identified HTN chronic alcohol and opioid use possible history of recent CVA Plan blood cx are negative x 1 day; urinalysis is unremarkable; PCT is 0.6 but had slight renal failure with GFR 53 which has now normalized; CXr does not show infiltrates; will d/c Vancomycin and Zosyn especially since the WBC count has normalized reviewed CT head which showed sinus disease but this may be chronic and probably not enough to explain the acute clinical and laboratory findings will follow up medical records from [place] (to be procured by ICU team) will continue to monitor clinically
[2017-04-21] MEDS: Cefepime 1gm in NS 100ml 1 GM/100 ML BAG IVPB SCH ×2 (11:10→22:04)
--- NOTE | 2017-04-21 12:49 | CP.PCM.PN ---
Subjective - Date & Time of Evaluation Date of Evaluation: 04/21/17 Time of Evaluation: 08:05 - Subjective Subjective: Patient seen and examined, remains intubated, sedated. Objective - Vital Signs/Intake and Output Vital Signs (last 24 hours): Temp Pulse Resp BP Pulse Ox 99.4 F 81 15 142/82 96 04/21/17 04:00 04/21/17 06:50 04/20/17 06:00 04/21/17 06:40 04/21/17 06:50 Intake and Output: 04/21/17 04/21/17 06:59 18:59 Intake Total 1700 100 Output Total 1500 Balance 200 100 - Medications Medications: Current Medications Chlorhexidine Gluconate (Peridex) 15 ml PO BID [facility] Last Admin: 04/21/17 09:19 Dose: 15 ml Heparin Sodium (Porcine) (Heparin) 5,000 units SC Q12 [facility] PRN Reason: Protocol Last Admin: 04/21/17 09:10 Dose: 5,000 units Propofol (Diprivan) 1,000 mg in 100 mls @ 2.722 mls/hr IV .Q24H PRN; Protocol; 5 MCG/KG/MIN PRN Reason: TITRATE PER MD ORDER Last Admin: 04/21/17 09:30 Dose: 20 mcg/kg/min, 10.886 mls/hr Sodium Chloride (Sodium Chloride 0.9%) 1,000 mls @ 100 mls/hr IV .Q10H [facility] Last Admin: 04/20/17 17:00 Dose: 100 mls/hr Doxycycline Hyclate 100 mg/ (Sodium Chloride) 100 mls @ 100 mls/hr IVPB Q12 [facility] PRN Reason: Protocol Last Admin: 04/21/17 11:10 Dose: 100 mls/hr Cefepime HCl (Maxipime 1gm) 1 gm in 100 mls @ 100 mls/hr IVPB Q12 [facility] PRN Reason: Protocol Last Admin: 04/21/17 11:10 Dose: 100 mls/hr Pantoprazole Sodium (Protonix Inj) 40 mg IVP DAILY [facility] Last Admin: 04/21/17 09:10 Dose: 40 mg - Labs Labs: 04/21/17 05:00 04/21/17 05:00 PT 10.8 Seconds (9.9-11.8) 04/19/17 23:27 INR 1.00 (0.93-1.08) 04/19/17 23:27 APTT 28.7 Seconds (23.7-30.8) 04/19/17 23:27 - Constitutional Appears: Well, Non-toxic, No Acute Distress - Head Exam Head Exam: ATRAUMATIC - Eye Exam Eye Exam: Normal appearance - ENT Exam ENT Exam: Mucous Membranes Moist - Neck Exam Neck Exam: Normal Inspection - Respiratory Exam Respiratory Exam: NORMAL BREATHING PATTERN Additional comments: decreased breath sounds at right base - Cardiovascular Exam Cardiovascular Exam: REGULAR RHYTHM, RRR, +S1, +S2 - GI/Abdominal Exam GI & Abdominal Exam: Soft, Normal Bowel Sounds - Extremities Exam Extremities Exam: Normal Inspection Assessment and Plan - Assessment and Plan (Free Text) Assessment: 52yo male a/w AMS, respiratory failure AMS Respiratory Failure ETOH abuse Opiate Abuse - currently afebrile, HD stable, comfortable on ventilator - On CXR with RLL infiltrate, likely aspiration - elevated Procal Recommend: - cont with low tidal volume ventilation - tirate off sedation - trial of CPAP - repeat ABG, increase FiO2, as PaO2 53, Pplateau 20 - on CXR with RLL infiltrate - broad spectrum abx, ID following - BP control - resume Methadone at home dose - sputum culture, Urine Lg/strep - check HIV - Thiamine, Folic Acid, MVT- - IVF hydration - DVT ppx - GI ppx critical care time 30 minutes
--- NOTE | 2017-04-21 14:14 | CP.PCM.PN ---
<Cher Cordova - Last Filed: 04/22/17 14:20> Subjective - Date & Time of Evaluation Date of Evaluation: 04/21/17 Time of Evaluation: 14:11 - Subjective Subjective: Hospitalist Service Progress Note: Patient seen and examined at bedside. Per nursing no acute events overnight. Patient is currently intubated and sedated. ROS not obtained. Objective - Vital Signs/Intake and Output Vital Signs (last 24 hours): Temp Pulse Resp BP Pulse Ox 99.4 F 78 15 134/82 97 04/21/17 04:00 04/21/17 13:27 04/20/17 06:00 04/21/17 12:40 04/21/17 12:40 Intake and Output: 04/21/17 04/21/17 06:59 18:59 Intake Total 1700 100 Output Total 1500 Balance 200 100 - Medications Medications: Current Medications Chlorhexidine Gluconate (Peridex) 15 ml PO BID [facility] Last Admin: 04/21/17 09:19 Dose: 15 ml Heparin Sodium (Porcine) (Heparin) 5,000 units SC Q12 [facility] PRN Reason: Protocol Last Admin: 04/21/17 09:10 Dose: 5,000 units Propofol (Diprivan) 1,000 mg in 100 mls @ 2.722 mls/hr IV .Q24H PRN; Protocol; 5 MCG/KG/MIN PRN Reason: TITRATE PER MD ORDER Last Admin: 04/21/17 09:30 Dose: 20 mcg/kg/min, 10.886 mls/hr Sodium Chloride (Sodium Chloride 0.9%) 1,000 mls @ 100 mls/hr IV .Q10H [facility] Last Admin: 04/20/17 17:00 Dose: 100 mls/hr Doxycycline Hyclate 100 mg/ (Sodium Chloride) 100 mls @ 100 mls/hr IVPB Q12 [facility] PRN Reason: Protocol Last Admin: 04/21/17 11:10 Dose: 100 mls/hr Cefepime HCl (Maxipime 1gm) 1 gm in 100 mls @ 100 mls/hr IVPB Q12 [facility] PRN Reason: Protocol Last Admin: 04/21/17 11:10 Dose: 100 mls/hr Methadone HCl (Methadone) 10 mg PO DAILY [facility] Last Admin: 04/21/17 13:19 Dose: 10 mg Pantoprazole Sodium (Protonix Inj) 40 mg IVP DAILY [facility] Last Admin: 04/21/17 09:10 Dose: 40 mg - Labs Labs: 04/21/17 05:00 04/21/17 05:00 PT 10.8 Seconds (9.9-11.8) 04/19/17 23:27 INR 1.00 (0.93-1.08) 04/19/17 23:27 APTT 28.7 Seconds (23.7-30.8) 04/19/17 23:27 - Constitutional Appears: No Acute Distress - Head Exam Head Exam: ATRAUMATIC, NORMAL INSPECTION - Eye Exam Eye Exam: EOMI, Normal appearance - ENT Exam ENT Exam: Mucous Membranes Moist Additional comments: + ETT tube - Neck Exam Neck Exam: Full ROM - Respiratory Exam Respiratory Exam: Decreased Breath Sounds, NORMAL BREATHING PATTERN. absent: Rales, Rhonchi, Wheezes - Cardiovascular Exam Cardiovascular Exam: REGULAR RHYTHM, +S1, +S2 - GI/Abdominal Exam GI & Abdominal Exam: Soft. absent: Guarding, Rigid, Tenderness, Rebound - Exam Additional comments: Kenney in draining clear yellow urine - Extremities Exam Extremities Exam: Full ROM, Normal Inspection - Back Exam Back Exam: NORMAL INSPECTION - Neurological Exam Neurological Exam: absent: Alert (Intubated and sedated) - Skin Skin Exam: Normal Color, Warm Assessment and Plan - Assessment and Plan (Free Text) Assessment: 52 y/o M with PMH of methadone and opioid abuse presented unresponsive, in hypoxemic respiratory failure in the setting of severe sepsis secondary to likely aspiration pneumonia. Pt was found unresponsive by family and it is unknown how long pt was in this state. Chest x-ray displays right sided infiltrate and pneumonia, likely indicating aspiration. Pt will remain on ventilator and continue broad spectrum antibiotics. ID consulted at this time. Plan: 1. Hypoxemic respiratory failure in the setting of severe sepsis secondary to aspiration pneumonia - Intubated, on sedation (propofol) - CT head negative for acute pathology - S/P vanco and zosyn - Currently on Cefepime and doxycycline - NS @ 100 cc/hr - CXR showing RLL infiltrate - Procalcitonin elevated, f/u repeat pro lucille - F/U pneumonia workup , sputum cx - Blood cultures showing no growth after 24 hours - Urine cultures no growth - ID consulted, F/U recommendations 2. Methadone and Opioid abuse - S/P narcan in the field - UTOX positive for benzos and methadone - Home dose of Methadone 10mg daily started - Hep panel negative 3. GI/DVT PPX - Heparin - Protonix <Bebe Murrell - Last Filed: 04/22/17 18:11> Objective - Vital Signs/Intake and Output Vital Signs (last 24 hours): Temp Pulse Resp BP Pulse Ox 100.4 F H 75 15 175/108 H 100 04/22/17 16:00 04/22/17 14:50 04/22/17 07:05 04/22/17 14:50 04/22/17 13:40 Intake and Output: 04/22/17 04/22/17 06:59 18:59 Intake Total 180 100 Balance 180 100 - Medications Medications: Current Medications Chlorhexidine Gluconate (Peridex) 15 ml PO BID [facility] Last Admin: 04/22/17 17:36 Dose: 15 ml Folic Acid (Folic Acid) 1 mg PO DAILY [facility] Last Admin: 04/22/17 09:24 Dose: 1 mg Propofol (Diprivan) 1,000 mg in 100 mls @ 2.722 mls/hr IV .Q24H PRN; Protocol; 5 MCG/KG/MIN PRN Reason: TITRATE PER MD ORDER Last Titration: 04/22/17 09:26 Dose: Infused Sodium Chloride (Sodium Chloride 0.9%) 1,000 mls @ 100 mls/hr IV .Q10H [facility] Last Admin: 04/22/17 16:52 Dose: 100 mls/hr Doxycycline Hyclate 100 mg/ (Sodium Chloride) 100 mls @ 100 mls/hr IVPB Q12 [facility] PRN Reason: Protocol Last Admin: 04/22/17 09:25 Dose: 100 mls/hr Cefepime HCl (Maxipime 1gm) 1 gm in 100 mls @ 100 mls/hr IVPB Q12 [facility] PRN Reason: Protocol Last Admin: 04/22/17 09:25 Dose: 100 mls/hr Dexmedetomidine HCl (Precedex 4 Mcg/Ml (100 Ml)) 400 mcg in 100 mls @ 4.454 mls /hr IV .[id number] PRN; Protocol; 0.2 MCG/KG/HR PRN Reason: Sedation Last Admin: 04/22/17 11:37 Dose: 0.5 mcg/kg/hr, 11.136 mls/hr Nicardipine HCl (Cardene Iv Premix) 20 mg in 200 mls @ 50 mls/hr IV .Q4H PRN; Protocol; 5 MG/HR PRN Reason: TITRATE PER MD ORDER Last Admin: 04/22/17 16:20 Dose: 5 mg/hr, 50 mls/hr Pantoprazole Sodium (Protonix Inj) 40 mg IVP DAILY [facility] Last Admin: 04/22/17 09:24 Dose: 40 mg Thiamine HCl (Vitamin B1 Tab) 50 mg PO DAILY [facility] Last Admin: 04/22/17 09:24 Dose: 50 mg - Labs Labs: 04/22/17 06:00 04/22/17 06:00 PT 10.8 Seconds (9.9-11.8) 04/19/17 23:27 INR 1.00 (0.93-1.08) 04/19/17 23:27 APTT 28.7 Seconds (23.7-30.8) 04/19/17 23:27 Attending/Attestation - Attestation I have personally seen and examined this patient.: Yes I have fully participated in the care of the patient.: Yes I have reviewed all pertinent clinical information, including history, physical exam and plan: Yes Notes (Text): I have seen and examined the patient at bedside. Agree with the note above with the following additions/ exceptions: Briefly this is 52 year old male with history of methadone/opioid abuse who was brought for evaluation of AMS, hypoxemic respiratory failure s/p intubation most likely due to aspiration pneumonia. CT head negative. He is on cefepime and vanco. Procal elevated. Will follow up cultures. UDS positive for BZ and methadone. Methadone was restarted. As per family, patient was recently in [facility]. We are trying to obtain records.
--- NOTE | 2017-04-21 15:43 | RAD ---
PROCEDURE: Portable chest HISTORY: dobhoff insertion COMPARISON: Earlier same day TECHNIQUE: FINDINGS: IMPRESSION: The dobhoff tube is seen in satisfactory position beyond the GE junction.
[2017-04-21] MEDS: Sodium Chloride 0.9% 1,000 ML IV SCH (16:21)
[2017-04-22] MEDS: Propofol 10 mg/ml 1,000 MG/100 ML VIAL IV PRN (04:02)
[2017-04-22 05:46] LABS: ARTERIAL BLOOD GAS HCO3 27.9 mmol/L (21-28); ARTERIAL BLOOD GAS O2 CAPACITY 18.9 mL/dl (16-24); ARTERIAL BLOOD GAS O2 CONTENT 18.6 ML/dl (15-23); ARTERIAL BLOOD GAS PH 7.41 (7.35-7.45); CARBOXYHEMOGLOBIN 1.4 % (0.5-1.5); HHB 1.4 % (0-5); METHEMOGLOBIN 1.2 % (0.0-3.0)
[2017-04-22 06:16] LABS: HEMATOCRIT 44.8 % (42.0-52.0); MEAN CELL VOLUME 102.8 fl (80.0-105.0); MEAN CORPUSCULAR HEMOGLOBIN 33.5 pg (25.0-35.0); MEAN CORPUSCULAR HGB CONC 32.6 g/dl (31.0-37.0); MEAN PLATELET VOLUME 10.9 fl (7.0-11.0); RED CELL DISTRIBUTION WIDTH 12.7 % (11.5-14.5); WHITE BLOOD COUNT 6.6 10^3/ul (4.5-11.0)
[2017-04-22 06:54] LABS: ALKALINE PHOSPHATASE 116 U/L (38-126); ALT/SGPT 35 U/L (7-56); AST/SGOT 45 U/L (17-59); BILIRUBIN,TOTAL 1.3 mg/dL (0.2-1.3); BLOOD UREA NITROGEN 15 mg/dL (7-21); CARBON DIOXIDE 27 mmol/L (21-33); CHLORIDE 106 mmol/L (95-110); GFR AFRICAN-AMERICAN > 60; GLUCOSE,RANDOM 83 mg/dL (70-110); POTASSIUM 3.6 mmol/L (3.6-5.0); SODIUM 144 mmol/L (132-148); TOTAL PROTEIN 6.3 g/dL (5.8-8.3)
--- NOTE | 2017-04-22 08:54 | RAD ---
HISTORY: clinical evaluation of PNA COMPARISON: 04/21/2017 FINDINGS: The endotracheal tube terminates 6.5 cm proximal to the nathalie. The nasogastric tube terminates in the stomach. LUNGS: There is persistent patient rotation to the right. There is apparent airspace disease in the right perihilar region and left lower lobe. The lungs are well inflated. PLEURA: No significant pleural effusion identified, no pneumothorax apparent. CARDIOVASCULAR: Normal. OSSEOUS STRUCTURES: No significant abnormalities. VISUALIZED UPPER ABDOMEN: Normal. OTHER FINDINGS: None. IMPRESSION: Apparent airspace disease in the right perihilar region and left lower lobe which may represent multifocal pneumonia. Follow-up is advised.
[2017-04-22] MEDS: Cefepime 1gm in NS 100ml 1 GM/100 ML BAG IVPB SCH ×2 (09:25→21:54)
[2017-04-22] MEDS: Chlorhexidine 0.12% Oral Sol 480 ml Bot PO SCH ×2 (09:25→17:36)
--- NOTE | 2017-04-22 09:44 | CP.PCM.PN ---
<Cher Cordova - Last Filed: 04/23/17 14:48> Subjective - Date & Time of Evaluation Date of Evaluation: 04/22/17 Time of Evaluation: 09:41 - Subjective Subjective: Hospitalist Service Progress Note: Patient seen and examined at bedside. Per nursing no acute events overnight. Patient intubated and sedated. Responding to tactile stimuli, not following verbal commands. ROS not obtained. Medical records were obtained from [facility] and reviewed. Objective - Vital Signs/Intake and Output Vital Signs (last 24 hours): Temp Pulse Resp BP Pulse Ox 99 F 65 15 116/79 100 04/22/17 06:00 04/22/17 07:20 04/22/17 07:05 04/22/17 07:00 04/22/17 07:20 Intake and Output: 04/22/17 04/22/17 06:59 18:59 Intake Total 180 100 Balance 180 100 - Medications Medications: Current Medications Chlorhexidine Gluconate (Peridex) 15 ml PO BID [facility] Last Admin: 04/22/17 09:25 Dose: 15 ml Folic Acid (Folic Acid) 1 mg PO DAILY [facility] Last Admin: 04/22/17 09:24 Dose: 1 mg Heparin Sodium (Porcine) (Heparin) 5,000 units SC Q12 [facility]INE PRN Reason: Protocol Last Admin: 04/22/17 09:24 Dose: 5,000 units Propofol (Diprivan) 1,000 mg in 100 mls @ 2.722 mls/hr IV .Q24H PRN; Protocol; 5 MCG/KG/MIN PRN Reason: TITRATE PER MD ORDER Last Titration: 04/22/17 09:26 Dose: Infused Sodium Chloride (Sodium Chloride 0.9%) 1,000 mls @ 100 mls/hr IV .Q10H [facility] Last Admin: 04/21/17 16:21 Dose: 100 mls/hr Doxycycline Hyclate 100 mg/ (Sodium Chloride) 100 mls @ 100 mls/hr IVPB Q12 [facility] PRN Reason: Protocol Last Admin: 04/22/17 09:25 Dose: 100 mls/hr Cefepime HCl (Maxipime 1gm) 1 gm in 100 mls @ 100 mls/hr IVPB Q12 [facility]INE PRN Reason: Protocol Last Admin: 04/22/17 09:25 Dose: 100 mls/hr Methadone HCl (Methadone) 60 mg PO ONCE ONE Stop: 04/22/17 17:01 Pantoprazole Sodium (Protonix Inj) 40 mg IVP DAILY [facility] Last Admin: 04/22/17 09:24 Dose: 40 mg Thiamine HCl (Vitamin B1 Tab) 50 mg PO DAILY [facility] Last Admin: 04/22/17 09:24 Dose: 50 mg - Labs Labs: 04/22/17 06:00 04/22/17 06:00 PT 10.8 Seconds (9.9-11.8) 04/19/17 23:27 INR 1.00 (0.93-1.08) 04/19/17 23:27 APTT 28.7 Seconds (23.7-30.8) 04/19/17 23:27 - Constitutional Appears: Non-toxic, No Acute Distress - Head Exam Head Exam: ATRAUMATIC, NORMAL INSPECTION - Eye Exam Eye Exam: Normal appearance - ENT Exam ENT Exam: Mucous Membranes Moist Additional comments: + ET tube + Dobhoff - Respiratory Exam Respiratory Exam: Decreased Breath Sounds. absent: Rhonchi, Wheezes - Cardiovascular Exam Cardiovascular Exam: REGULAR RHYTHM, +S1, +S2 - GI/Abdominal Exam GI & Abdominal Exam: Soft. absent: Guarding, Rigid, Tenderness, Rebound - Rectal Exam Rectal Exam: Deferred - Exam Additional comments: Kenney in draining clear yellow urine - Extremities Exam Extremities Exam: Normal Inspection. absent: Calf Tenderness - Back Exam Back Exam: NORMAL INSPECTION - Neurological Exam Neurological Exam: absent: Alert (Intubated and sedated) Assessment and Plan - Assessment and Plan (Free Text) Assessment: 52 y/o M with PMH of Ischemic CVA, polycythemia vera, methadone/opioid abuse presented unresponsive, in hypoxemic respiratory failure in the setting of severe sepsis secondary to likely aspiration pneumonia. Pt was found unresponsive by family and it is unknown how long pt was in this state. Chest x- ray displays right sided infiltrate and pneumonia, likely indicating aspiration. Pt will remain on ventilator and continue broad spectrum antibiotics. ID consulted at this time. Plan: 1. Hx of Ischemic CVA with lesion of left MCA superior division - Patient presented to [facility] on 04/08 with expressive aphasia - Per the family, patient was ambulating after discharge from [facility] on 04/17 - CTA Head and Neck showed left internal carotid artery stenosis 100% occlusion - Will repeat CTA head and neck - When propofol was titrated down, patient was only moving L extremities 2. Acute respiratory failure in the setting of severe sepsis 2/2 aspiration pneumonia - Intubated, on sedation - CT head on admission negative for acute pathology - CXR on admission showing RLL infiltrate - Currently on Cefepime and Doxycycline (Day 2) - NS @ 100 cc/hr - Continue tube feeds - Procal elevated on admission, repeat procal 0.32 - Legionella ag negative - F/U pneumonia workup , sputum cx - Blood cultures showing no growth after 48 hours - Urine cultures no growth - ID consulted, F/U recommendations 3. Methadone and Opioid abuse - S/P narcan in the field - UTOX positive for benzos and methadone - Home dose of Methadone 60mg daily started - Hep panel negative - Once extubated, will need psych consult 4. GI/DVT PPX - Heparin - Protonix <Bebe Murrell - Last Filed: 04/24/17 18:03> Objective - Vital Signs/Intake and Output Vital Signs (last 24 hours): Temp Pulse Resp BP Pulse Ox 98.1 F 65 48 H 124/80 98 04/24/17 12:00 04/24/17 13:50 04/24/17 11:00 04/24/17 13:00 04/24/17 13:50 Intake and Output: 04/24/17 04/24/17 06:59 18:59 Intake Total 2219 325 Output Total 1750 Balance 469 325 - Medications Medications: Current Medications Aspirin (Aspirin Chewable) 81 mg PO DAILY [facility] Last Admin: 04/24/17 09:26 Dose: 81 mg Atorvastatin Calcium (Lipitor) 20 mg PO DIN [facility] Last Admin: 04/24/17 17:27 Dose: 20 mg Chlorhexidine Gluconate (Peridex) 15 ml PO BID [facility] Last Admin: 04/24/17 17:26 Dose: 15 ml Clopidogrel Bisulfate (Plavix) 75 mg PO DAILY [facility] Last Admin: 04/24/17 15:49 Dose: 75 mg Docusate Sodium (Colace Liquid) 100 mg PO TID [facility] Last Admin: 04/24/17 17:26 Dose: Not Given Folic Acid (Folic Acid) 1 mg PO DAILY [facility] Last Admin: 04/24/17 09:27 Dose: 1 mg Heparin Sodium (Porcine) (Heparin) 5,000 units SC Q12 [facility] PRN Reason: Protocol Stop: 04/25/17 11:45 Last Admin: 04/24/17 15:49 Dose: 5,000 units Propofol (Diprivan) 1,000 mg in 100 mls @ 2.722 mls/hr IV .Q24H PRN; Protocol; 5 MCG/KG/MIN PRN Reason: TITRATE PER MD ORDER Last Titration: 04/22/17 09:26 Dose: Infused Sodium Chloride (Sodium Chloride 0.9%) 1,000 mls @ 100 mls/hr IV .Q10H [facility] Last Admin: 04/24/17 04:20 Dose: 100 mls/hr Dexmedetomidine HCl (Precedex 4 Mcg/Ml (100 Ml)) 400 mcg in 100 mls @ 4.454 mls /hr IV .[id number] PRN; Protocol; 0.2 MCG/KG/HR PRN Reason: Sedation Last Titration: 04/24/17 11:59 Dose: 0 mcg/kg/hr, 0 mls/hr Nicardipine HCl (Cardene Iv Premix) 20 mg in 200 mls @ 50 mls/hr IV .Q4H PRN; Protocol; 5 MG/HR PRN Reason: TITRATE PER MD ORDER Last Titration: 04/24/17 10:01 Dose: Infused Meropenem 1g/NS 100mL IVPB (Meropenem 1g/Ns 100ml Ivpb) 1 gm in 100 mls @ 100 mls/hr IVPB Q8 [facility] PRN Reason: Protocol Stop: 05/03/17 14:01 Last Admin: 04/24/17 15:49 Dose: 100 mls/hr Pantoprazole Sodium (Protonix Inj) 40 mg IVP DAILY [facility] Last Admin: 04/24/17 09:26 Dose: 40 mg Quetiapine Fumarate (Seroquel) 12.5 mg PO BID [facility] PRN Reason: Protocol Last Admin: 04/24/17 17:27 Dose: 12.5 mg Thiamine HCl (Vitamin B1 Tab) 50 mg PO DAILY [facility] Last Admin: 04/24/17 09:27 Dose: 50 mg Warfarin Sodium (Coumadin) 5 mg PO 1800 [facility] PRN Reason: Protocol - Labs Labs: 04/24/17 05:30 04/24/17 05:30 PT 11.0 Seconds (9.9-11.8) 04/23/17 05:20 INR 1.02 (0.93-1.08) 04/23/17 05:20 APTT 28.7 Seconds (23.7-30.8) 04/19/17 23:27 Attending/Attestation - Attestation I have personally seen and examined this patient.: Yes I have fully participated in the care of the patient.: Yes I have reviewed all pertinent clinical information, including history, physical exam and plan: Yes Notes (Text): I have seen and examined the patient at bedside. Agree with the note above with the following additions/ exceptions: Briefly this is 52 year old male with history of methadone/opioid abuse, PV, recent ischemic CVA (left MCA lesion) who was brought for evaluation of AMS, hypoxemic respiratory failure s/p intubation most likely due to aspiration pneumonia. Upon admission, CT head negative. CTA from [facility] revealed 100% occlusion of left ICA. Speech and swallow pending. Will consult neuro. Sedation is being titrated and it was noticed that right upper and right lower extremities are flaccid. He is on cefepime and vanco. Procal elevated. Will follow up cultures. UDS positive for BZ and methadone. Methadone was restarted. Patient remains intubated. Wean as per program director scouting. Dr Bebe Murrell.
[2017-04-22] MEDS: Dexmedetomidine HCl 4mcg/ml 400 MCG/100 ML BOTTLE IV PRN ×3 (11:37→21:55)
--- NOTE | 2017-04-22 13:37 | CP.CCUPN ---
<Santiago Chapman - Last Filed: 04/22/17 15:43> CCU Subjective - Physician Review Subjective (Free Text): 04/22/17 09:00 Patient seen and examined at bedside this AM in ICU. No acute events overnight. Patient family did bring in medical records from previous admission at [facility] from 04/08 to 04/19. Review of paperwork is most notable for patient having been diagnosed with ischemic stroke with lesion of left MCA superior division resulting in right sided paralysis. Patient head and neck CTA showed left internal carotid artery 100% occlusion. Patient sedated and intubated this AM during exam. CCU Objective - Vital Signs / Intake & Output Intake and Output (Last 8hrs): Intake & Output 04/21/17 04/22/17 04/22/17 22:59 06:59 14:59 Intake Total 1700 100 100 Output Total 800 Balance 900 100 100 Weight 196 lb 6.4 oz Intake: IV 1700 100 100 Left Antecubital 120 Right Hand 1500 Output: Urine 800 Urethral (Decker) 800 - Physical Exam Head: Positive for: Atraumatic, Normocephalic Pupils: Positive for: Other (Pupils dilated but reactive) Extroacular Muscles: Positive for: EOMI Conjunctiva: Positive for: Normal Ears: Positive for: NORMAL TM Mouth: Positive for: Dry, Other (ET tube in place) Neck: Positive for: Normal Range of Motion Respiratory/Chest: Positive for: Good Air Exchange, Rales (right sided > left side). Negative for: Respiratory Distress, Accessory Muscle Use, Wheezes Cardiovascular: Positive for: Regular Rate and Rhythm, Normal S1, S2. Negative for: Murmurs Abdomen: Positive for: Normal Bowel Sounds. Negative for: Tenderness, Distention, Peritoneal Signs Genitourinary Male: Positive for: Other (decker catheter in place, no ) Upper Extremity: Negative for: Cyanosis, Edema Lower Extremity: Positive for: Neurovascularly Intact. Negative for: Edema Neurological: Positive for: Other (Tonic posturing of upper and lower extremities, non-communicative) Skin: Positive for: Warm, Dry, Normal Color. Negative for: Rashes Psychiatric: Positive for: Other (sedated) - Medications Active Medications: Active Medications Generic Name Dose Route Start Last Admin Trade Name Freq PRN Reason Stop Dose Admin Chlorhexidine Gluconate 15 ml 04/20/17 18:00 04/22/17 09:25 Peridex PO 15 ml BID CATHERINE Administration Folic Acid 1 mg 04/22/17 10:00 04/22/17 09:24 Folic Acid PO 1 mg DAILY CATHERINE Administration Heparin Sodium (Porcine) 5,000 units 04/20/17 10:00 04/22/17 09:24 Heparin SC 5,000 units Q12 CATHERINE Administration Protocol Propofol 1,000 mg in 100 mls @ 2.722 mls/hr 04/20/17 00:58 04/22/17 09:26 Diprivan IV Infused .Q24H PRN Titration TITRATE PER MD ORDER Protocol 5 MCG/KG/MIN Sodium Chloride 1,000 mls @ 100 mls/hr 04/20/17 02:30 04/21/17 16:21 Sodium Chloride 0.9% IV 100 mls/hr .Q10H CATHERINE Administration Doxycycline Hyclate 100 mg/ 100 mls @ 100 mls/hr 04/21/17 10:30 04/22/17 09: 25 Sodium Chloride IVPB 100 mls/hr Q12 CATHERINE Administration Protocol Cefepime HCl 1 gm in 100 mls @ 100 mls/hr 04/21/17 10:30 04/22/17 09:25 Maxipime 1gm IVPB 100 mls/hr Q12 CATHERINE Administration Protocol Dexmedetomidine HCl 400 mcg in 100 mls @ 4.454 mls/hr 04/22/17 11:20 11:37 Precedex 4 Mcg/Ml (100 Ml) IV 0.5 mcg/kg/hr .[id number] PRN 11.136 mls/hr Sedation Administration Protocol 0.2 MCG/KG/HR Methadone HCl 60 mg 04/22/17 17:00 Methadone PO 04/22/17 17:01 ONCE ONE Pantoprazole Sodium 40 mg 04/20/17 10:00 04/22/17 09:24 Protonix Inj IVP 40 mg DAILY CATHERINE Administration Thiamine HCl 50 mg 04/22/17 10:00 04/22/17 09:24 Vitamin B1 Tab PO 50 mg DAILY CATHERINE Administration - Patient Studies Lab Studies: Microbiology Studies 04/20/17 03:30 MRSA Culture (Admit) - Final Naris MRSA NOT DETECTED Lab Studies 04/22/17 04/22/17 04/22/17 Range/Units 06:00 06:00 05:24 WBC 6.6 D (4.5-11.0) 10^3/ul RBC 4.36 (3.5-6.1) 10^6/uL Hgb 14.6 (14.0-18.0) g/dL Hct 44.8 (42.0-52.0) % MCV 102.8 (80.0-105.0) fl MCH 33.5 (25.0-35.0) pg MCHC 32.6 (31.0-37.0) g/dl RDW 12.7 (11.5-14.5) % Plt Count 158 (120.0-450.0) 10^3/uL MPV 10.9 (7.0-11.0) fl pCO2 44 (35-45) mm/Hg pO2 100.0 (80-100) mm/Hg HCO3 27.9 (21-28) mmol/L ABG pH 7.41 (7.35-7.45) ABG Total CO2 29.3 H (22-28) mmol.L ABG O2 Saturation 98.6 H (95-98) % ABG O2 Content 18.6 (15-23) ML/dl ABG Base Excess 2.7 (-2.0-3.0) mmol/L ABG Hemoglobin 13.7 (11.7-17.4) g/dL ABG Carboxyhemoglobin 1.4 (0.5-1.5) % POC ABG HHb (Measured) 1.4 (0-5) % ABG Methemoglobin 1.2 (0.0-3.0) % ABG O2 Capacity 18.9 (16-24) mL/dl Hgb O2 Saturation 96.0 (95.0-98.0) % FiO2 50.0 % Sodium 144 (132-148) mmol/L Potassium 3.6 (3.6-5.0) mmol/L Chloride 106 (95-110) mmol/L Carbon Dioxide 27 (21-33) mmol/L Anion Gap 15 (10-20) BUN 15 (7-21) mg/dL Creatinine 0.9 (0.8-1.5) mg/dL Est GFR ( Amer) > 60 Est GFR (Non-Af Amer) > 60 Random Glucose 83 (70-110) mg/dL Calcium 9.0 (8.4-10.5) mg/dL Total Bilirubin 1.3 (0.2-1.3) mg/dL AST 45 (17-59) U/L ALT 35 (7-56) U/L Alkaline Phosphatase 116 (38-126) U/L Total Protein 6.3 (5.8-8.3) g/dL Albumin 3.2 (3.0-4.8) g/dL Globulin 3.2 gm/dL Albumin/Globulin Ratio 1.0 L (1.1-1.8) Procalcitonin (0.19-0.49) NG/ML Ur L.pneumophila Ag (NEGATIVE) 04/21/17 04/21/17 Range/Units 19:53 06:30 WBC (4.5-11.0) 10^3/ul RBC (3.5-6.1) 10^6/uL Hgb (14.0-18.0) g/dL Hct (42.0-52.0) % MCV (80.0-105.0) fl MCH (25.0-35.0) pg MCHC (31.0-37.0) g/dl RDW (11.5-14.5) % Plt Count (120.0-450.0) 10^3/uL MPV (7.0-11.0) fl pCO2 (35-45) mm/Hg pO2 (80-100) mm/Hg HCO3 (21-28) mmol/L ABG pH (7.35-7.45) ABG Total CO2 (22-28) mmol.L ABG O2 Saturation (95-98) % ABG O2 Content (15-23) ML/dl ABG Base Excess (-2.0-3.0) mmol/L ABG Hemoglobin (11.7-17.4) g/dL ABG Carboxyhemoglobin (0.5-1.5) % POC ABG HHb (Measured) (0-5) % ABG Methemoglobin (0.0-3.0) % ABG O2 Capacity (16-24) mL/dl Hgb O2 Saturation (95.0-98.0) % FiO2 % Sodium (132-148) mmol/L Potassium (3.6-5.0) mmol/L Chloride (95-110) mmol/L Carbon Dioxide (21-33) mmol/L Anion Gap (10-20) BUN (7-21) mg/dL Creatinine (0.8-1.5) mg/dL Est GFR ( Amer) Est GFR (Non-Af Amer) Random Glucose (70-110) mg/dL Calcium (8.4-10.5) mg/dL Total Bilirubin (0.2-1.3) mg/dL AST (17-59) U/L ALT (7-56) U/L Alkaline Phosphatase (38-126) U/L Total Protein (5.8-8.3) g/dL Albumin (3.0-4.8) g/dL Globulin gm/dL Albumin/Globulin Ratio (1.1-1.8) Procalcitonin 0.32 (0.19-0.49) NG/ML Ur L.pneumophila Ag Negative (NEGATIVE) Laboratory Results - last 24 hr 04/21/17 04/21/17 04/22/17 06:30 19:53 05:24 WBC RBC Hgb Hct MCV MCH MCHC RDW Plt Count MPV pCO2 44 pO2 100.0 HCO3 27.9 ABG pH 7.41 ABG Total CO2 29.3 H ABG O2 Saturation 98.6 H ABG O2 Content 18.6 ABG Base Excess 2.7 ABG Hemoglobin 13.7 ABG Carboxyhemoglobin 1.4 POC ABG HHb (Measured) 1.4 ABG Methemoglobin 1.2 ABG O2 Capacity 18.9 Hgb O2 Saturation 96.0 FiO2 50.0 Sodium Potassium Chloride Carbon Dioxide Anion Gap BUN Creatinine Est GFR ( Amer) Est GFR (Non-Af Amer) Random Glucose Calcium Total Bilirubin AST ALT Alkaline Phosphatase Total Protein Albumin Globulin Albumin/Globulin Ratio Procalcitonin 0.32 Ur L.pneumophila Ag Negative 04/22/17 04/22/17 06:00 06:00 WBC 6.6 D RBC 4.36 Hgb 14.6 Hct 44.8 MCV 102.8 MCH 33.5 MCHC 32.6 RDW 12.7 Plt Count 158 MPV 10.9 pCO2 pO2 HCO3 ABG pH ABG Total CO2 ABG O2 Saturation ABG O2 Content ABG Base Excess ABG Hemoglobin ABG Carboxyhemoglobin POC ABG HHb (Measured) ABG Methemoglobin ABG O2 Capacity Hgb O2 Saturation FiO2 Sodium 144 Potassium 3.6 Chloride 106 Carbon Dioxide 27 Anion Gap 15 BUN 15 Creatinine 0.9 Est GFR ( Amer) > 60 Est GFR (Non-Af Amer) > 60 Random Glucose 83 Calcium 9.0 Total Bilirubin 1.3 AST 45 ALT 35 Alkaline Phosphatase 116 Total Protein 6.3 Albumin 3.2 Globulin 3.2 Albumin/Globulin Ratio 1.0 L Procalcitonin Ur L.pneumophila Ag Fingerstick Blood Sugar Results: 73 Review of Systems - Review of Systems Review of Systems: 12 point ROS unable to obtain due to patient being sedated Assessment/Plan - Assessment and Plan (Free Text) Assessment: 52 year old male with PMH of opiate abuse, hx of heroin abuse, HTN, polycythemia vera and recent admission to [facility] for ischemic stroke involving Left MCA superior division and evidence of left internal carotid artery occlusion of 100% who was discharged to home on 04/17. Patient was found unresponsive by family after suspected overdose of methadone on 04/19 who was brought to [facility] and found to be in acute respiratory failure requiring intubation. The patient was transferred to the ICU for observation and management. Plan: Neuro: AMS 2/2 overdose vs. possible stroke - Patient sedated and ventilated - UDS showing positive barbs and benzo - Change propofol to precedex with plan for potential extubation - Review of records from [place] for admission from 04/08 to 04/17 report patient had CTA of head and neck showing Left internal carotid artery 100% occluded, possible acute thrombus of Left MCA superior portion, with no intervention preformed - Head CT on admissio to [facility](04/20) showing no signs of acute intracranial hemmorhage, infarct, or intracranial hemorrhage Pulm: Respiratory Failure requiring intubation - Pressure support trial this AM Right sided Lower lobe pneumonia - CXR 04/22 showing right sided perihilar congestion, possible blunting of right costophrenic angle, repeat CXR in AM - Patient currently on Doxycycline, cefepime - ID consulted and following, appreciate recs CV: HTN - Patient SBP elevated, given Hydralazine 5mg IVP - Continue to monitor, pending head and neck CTA will alter management EKG on admission showing sinus tachycardia GI: - Patient on tube feedings currently with Jevity 1.2 - Will plan to hold tube feeds for potential extubation - Protonix IVPB Renal: - BUN/Cr: 15/0.9 - UOP 800mL past 24H - Monitor and replace electrolytes as necessary Heme: Hx of polycythemia vera (JAK2 mutation negative) H/H of 14.6/44.8 Stable, continue to monitor ID: Possible Right sided PNA 2/2 aspiration - Doxycycline, cefepime - Sputum culture pending - Blood clx negative at 48hrs - ID consulted and following Psych: Hx of Heroin abuse on methadone 60mg maintenance therapy Patient suspected to have taken excess methadone prior to presentation Once off sedation and extubated plan for psych consult Dispo: Patient sedated and intubated, continue medical management in ICU Case and plan discussed with attending, Dr. Murrell - Date & Time Date: 04/22/17 Time: 09:15 <Handy WHITE,Colton H - Last Filed: 04/22/17 16:36> CCU Objective - Vital Signs / Intake & Output Vital Signs (Last 4 hours): Vital Signs Pulse BP Pulse Ox 04/22/17 14:50 75 175/108 H 04/22/17 14:25 73 04/22/17 13:40 81 100 04/22/17 13:37 83 04/22/17 13:36 83 04/22/17 13:35 84 04/22/17 13:34 82 04/22/17 13:33 81 04/22/17 13:32 87 04/22/17 13:31 89 04/22/17 13:30 82 85 L 04/22/17 13:20 74 99 04/22/17 13:17 83 04/22/17 13:10 75 98 04/22/17 13:00 73 166/102 H 99 04/22/17 12:50 74 99 04/22/17 12:40 76 96 Intake and Output (Last 8hrs): Intake & Output 04/22/17 04/22/17 04/22/17 06:59 14:59 22:59 Intake Total 100 100 Balance 100 100 Weight 211 lb Intake: IV 100 100 - Medications Active Medications: Active Medications Generic Name Dose Route Start Last Admin Trade Name Freq PRN Reason Stop Dose Admin Chlorhexidine Gluconate 15 ml 04/20/17 18:00 04/22/17 09:25 Peridex PO 15 ml BID CATHERINE Administration Folic Acid 1 mg 04/22/17 10:00 04/22/17 09:24 Folic Acid PO 1 mg DAILY CATHERINE Administration Heparin Sodium (Porcine) 5,000 units 04/20/17 10:00 04/22/17 09:24 Heparin SC 5,000 units Q12 CATHERINE Administration Protocol Propofol 1,000 mg in 100 mls @ 2.722 mls/hr 04/20/17 00:58 04/22/17 09:26 Diprivan IV Infused .Q24H PRN Titration TITRATE PER MD ORDER Protocol 5 MCG/KG/MIN Sodium Chloride 1,000 mls @ 100 mls/hr 04/20/17 02:30 04/21/17 16:21 Sodium Chloride 0.9% IV 100 mls/hr .Q10H CATHERINE Administration Doxycycline Hyclate 100 mg/ 100 mls @ 100 mls/hr 04/21/17 10:30 04/22/17 09: 25 Sodium Chloride IVPB 100 mls/hr Q12 CATHERINE Administration Protocol Cefepime HCl 1 gm in 100 mls @ 100 mls/hr 04/21/17 10:30 04/22/17 09:25 Maxipime 1gm IVPB 100 mls/hr Q12 CATHERINE Administration Protocol Dexmedetomidine HCl 400 mcg in 100 mls @ 4.454 mls/hr 04/22/17 11:20 11:37 Precedex 4 Mcg/Ml (100 Ml) IV 0.5 mcg/kg/hr .[id number] PRN 11.136 mls/hr Sedation Administration Protocol 0.2 MCG/KG/HR Nicardipine HCl 20 mg in 200 mls @ 50 mls/hr 04/22/17 16:13 04/22/17 16:20 Cardene Iv Premix IV 5 mg/hr .Q4H PRN 50 mls/hr TITRATE PER MD ORDER Administration Protocol 5 MG/HR Methadone HCl 60 mg 04/22/17 17:00 Methadone PO 04/22/17 17:01 ONCE ONE Pantoprazole Sodium 40 mg 04/20/17 10:00 04/22/17 09:24 Protonix Inj IVP 40 mg DAILY CATHERINE Administration Thiamine HCl 50 mg 04/22/17 10:00 04/22/17 09:24 Vitamin B1 Tab PO 50 mg DAILY CATHERINE Administration - Patient Studies Lab Studies: Lab Studies 04/22/17 04/22/17 04/22/17 Range/Units 06:00 06:00 05:24 WBC 6.6 D (4.5-11.0) 10^3/ul RBC 4.36 (3.5-6.1) 10^6/uL Hgb 14.6 (14.0-18.0) g/dL Hct 44.8 (42.0-52.0) % MCV 102.8 (80.0-105.0) fl MCH 33.5 (25.0-35.0) pg MCHC 32.6 (31.0-37.0) g/dl RDW 12.7 (11.5-14.5) % Plt Count 158 (120.0-450.0) 10^3/uL MPV 10.9 (7.0-11.0) fl pCO2 44 (35-45) mm/Hg pO2 100.0 (80-100) mm/Hg HCO3 27.9 (21-28) mmol/L ABG pH 7.41 (7.35-7.45) ABG Total CO2 29.3 H (22-28) mmol.L ABG O2 Saturation 98.6 H (95-98) % ABG O2 Content 18.6 (15-23) ML/dl ABG Base Excess 2.7 (-2.0-3.0) mmol/L ABG Hemoglobin 13.7 (11.7-17.4) g/dL ABG Carboxyhemoglobin 1.4 (0.5-1.5) % POC ABG HHb (Measured) 1.4 (0-5) % ABG Methemoglobin 1.2 (0.0-3.0) % ABG O2 Capacity 18.9 (16-24) mL/dl Hgb O2 Saturation 96.0 (95.0-98.0) % FiO2 50.0 % Sodium 144 (132-148) mmol/L Potassium 3.6 (3.6-5.0) mmol/L Chloride 106 (95-110) mmol/L Carbon Dioxide 27 (21-33) mmol/L Anion Gap 15 (10-20) BUN 15 (7-21) mg/dL Creatinine 0.9 (0.8-1.5) mg/dL Est GFR ( Amer) > 60 Est GFR (Non-Af Amer) > 60 Random Glucose 83 (70-110) mg/dL Calcium 9.0 (8.4-10.5) mg/dL Total Bilirubin 1.3 (0.2-1.3) mg/dL AST 45 (17-59) U/L ALT 35 (7-56) U/L Alkaline Phosphatase 116 (38-126) U/L Total Protein 6.3 (5.8-8.3) g/dL Albumin 3.2 (3.0-4.8) g/dL Globulin 3.2 gm/dL Albumin/Globulin Ratio 1.0 L (1.1-1.8) Procalcitonin (0.19-0.49) NG/ML HIV 1&2 Ag/Ab, 4th Gen (Nonreactive) Ur L.pneumophila Ag (NEGATIVE) 04/21/17 04/21/17 04/21/17 Range/Units 19:53 06:30 05:00 WBC (4.5-11.0) 10^3/ul RBC (3.5-6.1) 10^6/uL Hgb (14.0-18.0) g/dL Hct (42.0-52.0) % MCV (80.0-105.0) fl MCH (25.0-35.0) pg MCHC (31.0-37.0) g/dl RDW (11.5-14.5) % Plt Count (120.0-450.0) 10^3/uL MPV (7.0-11.0) fl pCO2 (35-45) mm/Hg pO2 (80-100) mm/Hg HCO3 (21-28) mmol/L ABG pH (7.35-7.45) ABG Total CO2 (22-28) mmol.L ABG O2 Saturation (95-98) % ABG O2 Content (15-23) ML/dl ABG Base Excess (-2.0-3.0) mmol/L ABG Hemoglobin (11.7-17.4) g/dL ABG Carboxyhemoglobin (0.5-1.5) % POC ABG HHb (Measured) (0-5) % ABG Methemoglobin (0.0-3.0) % ABG O2 Capacity (16-24) mL/dl Hgb O2 Saturation (95.0-98.0) % FiO2 % Sodium (132-148) mmol/L Potassium (3.6-5.0) mmol/L Chloride (95-110) mmol/L Carbon Dioxide (21-33) mmol/L Anion Gap (10-20) BUN (7-21) mg/dL Creatinine (0.8-1.5) mg/dL Est GFR ( Amer) Est GFR (Non-Af Amer) Random Glucose (70-110) mg/dL Calcium (8.4-10.5) mg/dL Total Bilirubin (0.2-1.3) mg/dL AST (17-59) U/L ALT (7-56) U/L Alkaline Phosphatase (38-126) U/L Total Protein (5.8-8.3) g/dL Albumin (3.0-4.8) g/dL Globulin gm/dL Albumin/Globulin Ratio (1.1-1.8) Procalcitonin 0.32 (0.19-0.49) NG/ML HIV 1&2 Ag/Ab, 4th Gen Nonreactive (Nonreactive) Ur L.pneumophila Ag Negative (NEGATIVE) Laboratory Results - last 24 hr 04/21/17 04/21/17 04/21/17 05:00 06:30 19:53 WBC RBC Hgb Hct MCV MCH MCHC RDW Plt Count MPV pCO2 pO2 HCO3 ABG pH ABG Total CO2 ABG O2 Saturation ABG O2 Content ABG Base Excess ABG Hemoglobin ABG Carboxyhemoglobin POC ABG HHb (Measured) ABG Methemoglobin ABG O2 Capacity Hgb O2 Saturation FiO2 Sodium Potassium Chloride Carbon Dioxide Anion Gap BUN Creatinine Est GFR ( Amer) Est GFR (Non-Af Amer) Random Glucose Calcium Total Bilirubin AST ALT Alkaline Phosphatase Total Protein Albumin Globulin Albumin/Globulin Ratio Procalcitonin 0.32 HIV 1&2 Ag/Ab, 4th Gen Nonreactive Ur L.pneumophila Ag Negative 04/22/17 04/22/17 04/22/17 05:24 06:00 06:00 WBC 6.6 D RBC 4.36 Hgb 14.6 Hct 44.8 MCV 102.8 MCH 33.5 MCHC 32.6 RDW 12.7 Plt Count 158 MPV 10.9 pCO2 44 pO2 100.0 HCO3 27.9 ABG pH 7.41 ABG Total CO2 29.3 H ABG O2 Saturation 98.6 H ABG O2 Content 18.6 ABG Base Excess 2.7 ABG Hemoglobin 13.7 ABG Carboxyhemoglobin 1.4 POC ABG HHb (Measured) 1.4 ABG Methemoglobin 1.2 ABG O2 Capacity 18.9 Hgb O2 Saturation 96.0 FiO2 50.0 Sodium 144 Potassium 3.6 Chloride 106 Carbon Dioxide 27 Anion Gap 15 BUN 15 Creatinine 0.9 Est GFR ( Amer) > 60 Est GFR (Non-Af Amer) > 60 Random Glucose 83 Calcium 9.0 Total Bilirubin 1.3 AST 45 ALT 35 Alkaline Phosphatase 116 Total Protein 6.3 Albumin 3.2 Globulin 3.2 Albumin/Globulin Ratio 1.0 L Procalcitonin HIV 1&2 Ag/Ab, 4th Gen Ur L.pneumophila Ag Attending/Attestation - Attestation I have personally seen and examined this patient.: Yes I have fully participated in the care of the patient.: Yes I have reviewed all pertinent clinical information: Yes Notes (Text): 04/22/17 16:32 52 y/o M admitted to the ICU after being found down with concern of acute overdose of methadone. Intubated due to hypoxia and change in mental status. Currently not awakening or following commands during SBT and was palced back on ac/vc. R sided weakness noted without any response to stimuli. Family at bedside and explains that since his recent CVA 2 weeks prior he was d/ c from the hospital and able to walk and talk without any residual deficit. STAT ct / cta was done and shows concerning SAH. STAT neurology and Neurosurgery consultation placed. BP control w. Cardene started, Ca + blockers can help with vasospasm and risk of bleed in the next 24 hrs. dvt p SCD cc time 55 min
--- NOTE | 2017-04-22 13:51 | PN ---
DATE: 04/22/2017 SUBJECTIVE: The patient is in bed, in no acute distress, nontoxic, was seen early this morning in #[id number], bed #2. PHYSICAL EXAMINATION: VITAL SIGNS: On exam, the patient's temperature is 98; blood pressure is 116/79; respiratory rate, on the vent; heart rate of 74. HEENT: Reveals ET tube in place. NECK: Supple. LUNGS: Decreased breath sounds. HEART EXAM: Normal S1 and S2. ABDOMINAL EXAMINATION: Soft, nontender. LABORATORY EXAMINATION: Reveals a white count of 6.6, hemoglobin of 14 and platelets of 158. Chemistries reveal a BUN of 15, creatinine of 0.9. Urinalysis is noted. Urine for legionella antigen is negative and microbiology reveals the blood cultures are negative, urine cultures are negative and MRSA is negative. REVIEW OF ORDERS: Reveal the patient to be on doxycycline and cefepime. Procalcitonin is 0.32, it was elevated at 0.60. ASSESSMENT AND PLAN: This is a 52-year-old male with systemic inflammatory response syndrome; toxic metabolic encephalopathy; respiratory failure; intubated on ventilator and chronic alcohol and opioid use, methadone and oxycodone. Thus far, cultures negative in a patient who has a history of cerebrovascular accident and hypertension and on cefepime and doxycycline and overall prognosis is poor. Salomón Arroyo MD
--- NOTE | 2017-04-22 16:10 | CT ---
PROCEDURE: CT HEAD WITHOUT CONTRAST. HISTORY: Right sided hemiparesis COMPARISON: 04/20/2017. TECHNIQUE: Axial computed tomography images were obtained through the head/brain without intravenous contrast. Radiation dose: Total exam DLP = 847.77 mGy-cm. This CT exam was performed using one or more of the following dose reduction techniques: Automated exposure control, adjustment of the mA and/or kV according to patient size, and/or use of iterative reconstruction technique. FINDINGS: HEMORRHAGE: No intracranial hemorrhage. BRAIN: There are linear areas of increased attenuation in the left posterior insular and posterior parietal lobe sulci. There is no mass or mass effect. VENTRICLES: There is mild global parenchymal volume loss and proportionate enlargement of the ventricles and cortical sulci. CALVARIUM: Unremarkable. PARANASAL SINUSES: There is near complete opacification of the right maxillary sinus and fluid in the left maxillary and sphenoid sinuses. There is also partial opacification of the ethmoid air cells and fluid in the left frontal sinus. MASTOID AIR CELLS: Predominantly clear. OTHER FINDINGS: None. IMPRESSION: Findings are concerning for left posterior parietal subarachnoid hemorrhage. Mild global parenchymal volume loss, advanced for the patient's age. Critical findings were discussed with nurse Max on 04/22/2017 at 4:05 p.m.
[2017-04-22] MEDS: Nicardipine 20 MG/200 ML 20 MG/200 ML BAG IV PRN ×2 (16:20→21:51)
--- NOTE | 2017-04-22 16:34 | CT ---
PROCEDURE: CT Angiography of the Brain. HISTORY: right sided hemiparesis COMPARISON: None available. TECHNIQUE: CT angiography of the intracranial arteries was performed. Coronal and sagittal maximum intensity projection reformated images were generated. This CT exam was performed using one or more of the following dose reduction techniques: Automated exposure control, adjustment of the mA and/or kV according to patient size, and/or use of iterative reconstruction technique. FINDINGS: INTERNAL CEREBRAL ARTERIES: There is complete occlusion of the left internal carotid at its origin. There is some retrograde filling of the intra cavernous and supraclinoid portion of the internal carotid. ANTERIOR CEREBRAL ARTERIES: Unremarkable. A1 and A2 segments are widely patent. Smaller distal branches unremarkable, as visualized. MIDDLE CEREBRAL ARTERIES: Unremarkable. M1 and M2 segments are widely patent. Perisylvian branches grossly symmetric. POSTERIOR CIRCULATION: Basilar Artery: Unremarkable. Distal Vertebral Arteries: Unremarkable. Posterior Cerebral Arteries: Unremarkable. Posterior Inferior Cerebellar Arteries: Unremarkable. ANEURYSM/ VASCULAR MALFORMATIONS: None. OTHER FINDINGS: There is extensive sinusitis IMPRESSION: Occlusion of the left internal carotid. There is some retrograde filling of the intra cavernous and supraclinoid portions. PROCEDURE: CT Angiography of the neck with contrast HISTORY: right sided hemiparesis COMPARISON: None available. TECHNIQUE: Contiguous axial images of the neck were obtained from the level of the skull-base to the superior mediastinum in the arteriographic phase of enhancement. Coronal and sagittal reformats or also generated. IV contrast dose: 150 cc of Omni 350 Radiation Dose - DLP: 603 mGy-cm This CT exam was performed using one or more of the following dose reduction techniques: Automated exposure control, adjustment of the mA and/or kV according to patient size, and/or use of iterative reconstruction technique. FINDINGS: RIGHT CAROTID ARTERIES: Common Carotid Artery: Normal. Carotid Bifurcation: Calcified plaques are seen. There is no significant measurable stenosis Internal Carotid Artery:As above External Carotid Artery (proximal branches): Normal. LEFT CAROTID ARTERIES: Common Carotid Artery: Normal. Carotid Bifurcation: There is complete occlusion of the left internal carotid at its origin. Internal Carotid Artery:The occlusion is best visualized on sagittal image 84 of series 604. External Carotid Artery (proximal branches): Normal. VERTEBRAL ARTERIES: Right Vertebral Artery: Normal. Left Vertebral Artery: Normal. OTHER FINDINGS: None. IMPRESSION: Complete occlusion of the left internal carotid at its origin
[2017-04-22] MEDS: Sodium Chloride 0.9% 1,000 ML IV SCH (16:52)
--- NOTE | 2017-04-22 19:35 | CON ---
NEUROLOGY CONSULT CHIEF COMPLAINT: Questionable left posterior parietal lobe small subarachnoid hemorrhage with the recent left MCA territory infract. HISTORY OF PRESENT ILLNESS: This is a 52-year-old man with past medical history of opioid abuse, history of heroin abuse, hypertension, polycythemia vera, with recent admission to [facility] with ishemic stroke in the left MCA superior division and evidence of left internal carotid artery occlusion of 100%. He was discharged home on 04/17/2017, was found unresponsive by his family member after slight overdose of methadone on 04/19, who was brought to [facility], found to be in acute respiratory failure requiring intubation. He was transferred to the ICU for observation. His blood pressures have been fluctuating systolic and diastolic elevations. A CAT scan showed evidence of the left posterior parietal lobe subarachnoid hemorrhage based on my read and evidence of subacute infarct in the left MCA territory. The patient according to the sister at the bedside that she did have some residual aphasia from the stroke. The patient according to me has right-sided hemiparesis. PAST MEDICAL HISTORY: History of opioid abuse, methadone use, hypertension, dyslipidemia, polycythemia vera. ALLERGIES: NO KNOWN DRUG ALLERGIES. REVIEW OF SYSTEMS: A 14-point review of systems is negative as it is difficult to obtain due to the patient's underlying intubation and mental status. MEDICATIONS: Reviewed by nurse reconciliation sheet. SOCIAL HISTORY: History of heroin abuse, EtOH use. PHYSICAL EXAMINATION: VITAL SIGNS: Temperature 100, pulse rate is 75, blood pressure of 175/108, respiratory rate of 18, and oxygen saturation 100% by mechanical ventilation. GENERAL: The patient is sitting up in the bed, intubated, on Precedex and propofol. HEENT: Atraumatic and normocephalic. PERRLA. Extraocular muscles intact. NECK: Supple. No JVD. No adenopathy noted. LUNGS: Decreased breath sounds bilaterally. HEART: S1 and S2, normal rate and rhythm. No murmurs, rubs, or gallops. ABDOMEN: Soft, nontender, and nondistended. Bowel sounds are present. EXTREMITIES: No clubbing. No cyanosis. Peripheral pulses 2+ felt bilaterally. NEUROLOGIC: The patient is intubated, on sedation. Cranial nerves II through XII intact. Apparently, he has had aphasia, Broca's type, prior to the hospital from his left MCA territory infarct recently. Motor exam: Toe on the right side is flaccid. Right toe is upgoing. Left toe is downgoing. Sensory exam: Withdraws to localized to noxious stimulus. DTRs are 1+ throughout. Coordination and gait is deferred for now. LABORATORY DATA: Sodium is 144, potassium is 3.6, chloride 106, carbon dioxide of 27, BUN of 15, creatinine of 0.9. Random glucose of 73. ASSESSMENT AND PLAN: This is a 52-year-old man with history of methadone abuse, heroin abuse, hypertension, dyslipidemia with a recent polycythemia vera with a recent admission for [facility] for ishemic stroke involved in left middle cerebral artery superior division and evidence of left internal carotid artery occlusion of 100%. He was discharged to home on 04/17/2017, found unresponsive by his family, suspect overdose of methadone on 04/19, therefore came to [facility] for the evaluation and found to be in acute respiratory failure and required intubation. Now, he had a CT head, which showed left posterior parietal subarachnoid hemorrhage, no aneurysmal findings seen on the CT angio except for occluded left internal carotid artery of 100%. At this time, we recommend; 1. Keep his blood pressures between 120 to 130 mmHg. 2. If blood pressures continue to increase, then he can be placed on calcium channel violet such as amlodipine. 3. Get the MRI of the brain and MRI of the head with and without contrast. 4. Continue respiratory support and antibiotics for right-sided lower lobe pneumonia. Followup with ID's recommendations and continue current present medical management. Thank you for this consult. Vahe Lara MD
--- NOTE | 2017-04-22 19:51 | MRI ---
EXAM: MR Head Without Intravenous Contrast EXAM DATE/TIME: 04/22/2017 5:12 PM CLINICAL HISTORY: The patient age is 52 years old and is male; Signs and symptoms; Other: ? Hemorrhage; Additional info: R/O subarachnoid hemorrhage Facility exam id and description: Mri br s brain without contrast TECHNIQUE: Magnetic resonance images of the head/brain without intravenous contrast in multiple planes. COMPARISON: CTA HEAD NECK BUNDLE 04/22/2017 3:23:46 PM, CT - HEAD W/O CONTRAST 04/22/2017 3:21:10 PM FINDINGS: Artifacts: There is magnetic susceptibility artifact involving the face. Brain: There are multiple foci of restricted diffusion within the left frontal, parietal, and occipital white matter, consistent with acute ischemic change. Additional small foci of acute or subacute ischemia are visualized within the right frontal white matter. Mild restricted diffusion is also visualized within the left basal ganglia and left temporal cortex and white matter, consistent with acute or subacute ischemic change. Due to distribution of the ischemic changes, embolic disease is considered. There is mild prominence of the ventricles and sulci, compatible with atrophy. In the areas of hyperdensity visualized on the previous CT within the left temporal and posterior parietal lobes, there is no significant magnetic susceptibility to confirm hemorrhage. This is suggestive of cortical laminar necrosis. Ventricles: See above. Bones/joints: See above. Sinuses: Mucosal thickening/effusions are visualized within the maxillary sinuses, sphenoid sinuses, ethmoid air cells, and frontal sinuses. No acute sinusitis. Mastoid air cells: Mucosal thickening/effusions are identified within the bilateral mastoid air cells. Orbits: No acute abnormality, as visualized. Internal carotid arteries: There is loss of the normal flow-void within the left internal carotid artery, consistent with the occlusion visualized on the previous CTA. Other: Fluid is visualized within the pharynx posteriorly as well as a catheter. IMPRESSION: 1. There are multiple foci of restricted diffusion within the left frontal, parietal, and occipital white matter, consistent with acute ischemic change. Additional small foci of acute or subacute ischemia are visualized within the right frontal white matter. Mild restricted diffusion is also visualized within the left basal ganglia and left temporal cortex and white matter, consistent with acute or subacute ischemic change. Due to distribution of the ischemic changes, embolic disease is considered. 2. There is loss of the normal flow-void within the left internal carotid artery, consistent with the occlusion visualized on the previous CTA. 3. Mild atrophy. 4. In the areas of hyperdensity visualized on the previous CT within the left temporal and posterior parietal lobes, there is no significant magnetic susceptibility to confirm hemorrhage. This is suggestive of cortical laminar necrosis. A follow-up CT in 12-24 hours is recommended. 5. Paranasal sinus disease is noted above. 6. Mucosal thickening/effusions are identified within the bilateral mastoid air cells. 7. Additional findings described above.
[2017-04-23] MEDS: Dexmedetomidine HCl 4mcg/ml 400 MCG/100 ML BOTTLE IV PRN ×3 (00:15→19:27)
[2017-04-23] MEDS: Sodium Chloride 0.9% 1,000 ML IV SCH ×3 (03:23→10:19)
[2017-04-23 06:28] LABS: HEMATOCRIT 45.9 % (42.0-52.0); MEAN CELL VOLUME 100.2 fl (80.0-105.0); MEAN CORPUSCULAR HEMOGLOBIN 33.6 pg (25.0-35.0); MEAN CORPUSCULAR HGB CONC 33.6 g/dl (31.0-37.0); MEAN PLATELET VOLUME 10.6 fl (7.0-11.0); RED CELL DISTRIBUTION WIDTH 12.1 % (11.5-14.5)
[2017-04-23 06:35] LABS: INR 1.02 (0.93-1.08)
[2017-04-23 06:39] LABS: ALB/GLOB RATIO 1.1 (1.1-1.8); ALKALINE PHOSPHATASE 135 U/L (38-126); ALT/SGPT 35 U/L (7-56); AST/SGOT 39 U/L (17-59); BILIRUBIN,TOTAL 1.5 mg/dL (0.2-1.3); BLOOD UREA NITROGEN 12 mg/dL (7-21); CARBON DIOXIDE 28 mmol/L (21-33); CHLORIDE 105 mmol/L (95-110); GFR AFRICAN-AMERICAN > 60; GLUCOSE,RANDOM 122 mg/dL (70-110); MAGNESIUM 1.5 mg/dL (1.7-2.2); POTASSIUM 3.6 mmol/L (3.6-5.0); SODIUM 142 mmol/L (132-148)
[2017-04-23 06:49] LABS: PHOSPHOROUS 5.7 mg/dL (2.5-4.5)
[2017-04-23 06:58] LABS: ARTERIAL BLOOD GAS PH 7.38 (7.35-7.45)
[2017-04-23] MEDS ORDERED: Magnesium Sulfate 1 gm in D5W 1 GM/100 ML BAG IVPB ONE (07:18)
[2017-04-23] MEDS: Cefepime 1gm in NS 100ml 1 GM/100 ML BAG IVPB SCH ×2 (10:18→21:27)
[2017-04-23] MEDS: Chlorhexidine 0.12% Oral Sol 480 ml Bot PO SCH ×2 (10:19→19:10)
--- NOTE | 2017-04-23 12:02 | CP.CCUPN ---
<Santiago Chapman - Last Filed: 04/23/17 13:41> CCU Subjective - Physician Review Subjective (Free Text): 04/23/17 12:27 Patient seen and examined this AM in ICU. Patient extubated and on precedex with light sedation. Patient is arousable by verbal stimuli and painful sternal rub. Over the past 24 hours patient went for HEAD CT and CTA of head and neck showing possible SAH vs. acute ischemic change which prompted a follow up MRI which showed multiple areas of restricted diffusion. Neurology was consulted and evaluated the patient with recommendations of strict BP control. CCU Objective - Vital Signs / Intake & Output Vital Signs (Last 4 hours): Vital Signs Temp Pulse Resp BP Pulse Ox 04/23/17 11:00 76 24 154/87 H 100 04/23/17 10:50 79 22 100 04/23/17 10:40 76 47 H 100 04/23/17 10:30 76 25 H 97 04/23/17 10:20 76 23 99 04/23/17 10:10 75 22 100 04/23/17 10:00 75 28 H 132/88 100 04/23/17 09:50 75 16 100 04/23/17 09:40 80 25 H 100 04/23/17 09:30 82 23 100 04/23/17 09:20 82 27 H 99 04/23/17 09:10 80 26 H 97 04/23/17 09:05 90 34 H 04/23/17 09:04 92 H 18 04/23/17 09:03 97 H 52 H 04/23/17 09:02 97 H 18 04/23/17 09:01 101 H 35 H 04/23/17 09:00 152/66 H 04/23/17 08:59 100 H 04/23/17 08:58 96 H 04/23/17 08:57 100 H 04/23/17 08:56 94 H 04/23/17 08:55 89 04/23/17 08:54 85 04/23/17 08:53 81 04/23/17 08:52 88 04/23/17 08:51 83 04/23/17 08:50 79 04/23/17 08:49 75 04/23/17 08:48 72 04/23/17 08:47 77 04/23/17 08:46 75 04/23/17 08:00 100.6 F H 78 22 100 Intake and Output (Last 8hrs): Intake & Output 04/22/17 04/23/17 04/23/17 22:59 06:59 14:59 Intake Total 2395 3615 2200 Output Total 2049 2049 1850 Balance 345 1565 350 Intake: IV 2315 3535 1600 Left Antecubital 120 Left Forearm 1915 1915 1600 Right Hand 1500 Oral 80 80 Tube Feeding 600 Output: Urine 1999 1999 1849 Urethral (Decker) 1999 1999 1849 Oral Regurgitation 50 50 Other: # Bowel Movements 1 0 - Physical Exam Head: Positive for: Atraumatic, Normocephalic Pupils: Positive for: Other (Pupils dilated but reactive) Extroacular Muscles: Positive for: EOMI Conjunctiva: Positive for: Normal Ears: Positive for: NORMAL TM Mouth: Positive for: Dry Neck: Positive for: Normal Range of Motion Respiratory/Chest: Positive for: Good Air Exchange, Rales (right sided > left side). Negative for: Respiratory Distress, Accessory Muscle Use, Wheezes Cardiovascular: Positive for: Regular Rate and Rhythm, Normal S1, S2. Negative for: Murmurs Abdomen: Positive for: Normal Bowel Sounds. Negative for: Tenderness, Distention, Peritoneal Signs Genitourinary Male: Positive for: Other (decker catheter in place) Upper Extremity: Negative for: Cyanosis, Edema Lower Extremity: Positive for: Edema, Neurovascularly Intact Neurological: Positive for: CN II-XII Intact, Other (Right sided hemiparesis, left sided spontanous movement,toe on right side flaccid and upgoing, left toes downgoing, withdaws to localized pain stimulus, DTRs 1+) Skin: Positive for: Warm, Dry, Normal Color. Negative for: Rashes Psychiatric: Positive for: Other (sedated) - Medications Active Medications: Active Medications Generic Name Dose Route Start Last Admin Trade Name Freq PRN Reason Stop Dose Admin Chlorhexidine Gluconate 15 ml 04/20/17 18:00 04/23/17 10:19 Peridex PO 1 ml BID CATHERINE Administration Folic Acid 1 mg 04/22/17 10:00 04/23/17 10:16 Folic Acid PO 1 mg DAILY CATHERINE Administration Propofol 1,000 mg in 100 mls @ 2.722 mls/hr 04/20/17 00:58 04/22/17 09:26 Diprivan IV Infused .Q24H PRN Titration TITRATE PER MD ORDER Protocol 5 MCG/KG/MIN Sodium Chloride 1,000 mls @ 100 mls/hr 04/20/17 02:30 04/23/17 10:19 Sodium Chloride 0.9% IV 100 mls/hr .Q10H CATHERINE Administration Doxycycline Hyclate 100 mg/ 100 mls @ 100 mls/hr 04/21/17 10:30 04/23/17 10: 17 Sodium Chloride IVPB 100 mls/hr Q12 CATHERINE Administration Protocol Cefepime HCl 1 gm in 100 mls @ 100 mls/hr 04/21/17 10:30 04/23/17 10:18 Maxipime 1gm IVPB 100 mls/hr Q12 CATHERINE Administration Protocol Dexmedetomidine HCl 400 mcg in 100 mls @ 4.454 mls/hr 04/22/17 11:20 00:15 Precedex 4 Mcg/Ml (100 Ml) IV 1.8 mcg/kg/hr .[id number] PRN 40.089 mls/hr Sedation Administration Protocol 0.2 MCG/KG/HR Nicardipine HCl 20 mg in 200 mls @ 50 mls/hr 04/22/17 16:13 04/22/17 21:51 Cardene Iv Premix IV 5 mg/hr .Q4H PRN 50 mls/hr TITRATE PER MD ORDER Administration Protocol 5 MG/HR Pantoprazole Sodium 40 mg 04/20/17 10:00 04/23/17 10:16 Protonix Inj IVP 40 mg DAILY CATHERINE Administration Thiamine HCl 50 mg 04/22/17 10:00 04/23/17 10:16 Vitamin B1 Tab PO 50 mg DAILY CATHERINE Administration - Patient Studies Lab Studies: Lab Studies 04/23/17 04/23/17 04/23/17 Range/Units 06:45 06:35 05:20 WBC (4.5-11.0) 10^3/ul RBC (3.5-6.1) 10^6/uL Hgb (14.0-18.0) g/dL Hct (42.0-52.0) % MCV (80.0-105.0) fl MCH (25.0-35.0) pg MCHC (31.0-37.0) g/dl RDW (11.5-14.5) % Plt Count (120.0-450.0) 10^3/uL MPV (7.0-11.0) fl PT 11.0 (9.9-11.8) Seconds INR 1.02 (0.93-1.08) pCO2 44 (35-45) mm/Hg pO2 97.0 (80-100) mm/Hg HCO3 26.0 (21-28) mmol/L ABG pH 7.38 (7.35-7.45) ABG Total CO2 27.4 (22-28) mmol.L ABG O2 Saturation 98.5 H (95-98) % ABG Base Excess 0.5 (-2.0-3.0) mmol/L ABG Potassium 3.2 L (3.6-5.2) mmol/L Glucose 115 H (75-110) mg/dl Lactate 0.7 (0.7-2.1) mmol/L FiO2 50.0 % Sodium 141.0 (132-148) mmol/L Potassium (3.6-5.0) mmol/L Chloride 106.0 (95-110) mmol/L Carbon Dioxide (21-33) mmol/L Anion Gap (10-20) BUN (7-21) mg/dL Creatinine (0.8-1.5) mg/dL Est GFR ( Amer) Est GFR (Non-Af Amer) POC Glucose (mg/dL) 125 H (65-110) mg/dL Random Glucose (70-110) mg/dL Calcium (8.4-10.5) mg/dL Phosphorus (2.5-4.5) mg/dL Magnesium (1.7-2.2) mg/dL Total Bilirubin (0.2-1.3) mg/dL AST (17-59) U/L ALT (7-56) U/L Alkaline Phosphatase (38-126) U/L Total Protein (5.8-8.3) g/dL Albumin (3.0-4.8) g/dL Globulin gm/dL Albumin/Globulin Ratio (1.1-1.8) Arterial Blood Potassium 3.2 L (3.6-5.2) mmol/L HIV 1&2 Ag/Ab, 4th Gen (Nonreactive) Ur L.pneumophila Ag (NEGATIVE) 04/23/17 04/23/17 04/22/17 Range/Units 05:20 05:20 23:35 WBC 8.0 D (4.5-11.0) 10^3/ul RBC 4.58 (3.5-6.1) 10^6/uL Hgb 15.4 (14.0-18.0) g/dL Hct 45.9 (42.0-52.0) % MCV 100.2 (80.0-105.0) fl MCH 33.6 (25.0-35.0) pg MCHC 33.6 (31.0-37.0) g/dl RDW 12.1 (11.5-14.5) % Plt Count 183 (120.0-450.0) 10^3/uL MPV 10.6 (7.0-11.0) fl PT (9.9-11.8) Seconds INR (0.93-1.08) pCO2 (35-45) mm/Hg pO2 (80-100) mm/Hg HCO3 (21-28) mmol/L ABG pH (7.35-7.45) ABG Total CO2 (22-28) mmol.L ABG O2 Saturation (95-98) % ABG Base Excess (-2.0-3.0) mmol/L ABG Potassium (3.6-5.2) mmol/L Glucose (75-110) mg/dl Lactate (0.7-2.1) mmol/L FiO2 % Sodium 142 (132-148) mmol/L Potassium 3.6 (3.6-5.0) mmol/L Chloride 105 (95-110) mmol/L Carbon Dioxide 28 (21-33) mmol/L Anion Gap 13 (10-20) BUN 12 (7-21) mg/dL Creatinine 0.9 (0.8-1.5) mg/dL Est GFR ( Amer) > 60 Est GFR (Non-Af Amer) > 60 POC Glucose (mg/dL) 118 H (65-110) mg/dL Random Glucose 122 H (70-110) mg/dL Calcium 9.0 (8.4-10.5) mg/dL Phosphorus 5.7 H (2.5-4.5) mg/dL Magnesium 1.5 L (1.7-2.2) mg/dL Total Bilirubin 1.5 H (0.2-1.3) mg/dL AST 39 (17-59) U/L ALT 35 (7-56) U/L Alkaline Phosphatase 135 H (38-126) U/L Total Protein 7.0 (5.8-8.3) g/dL Albumin 3.6 (3.0-4.8) g/dL Globulin 3.4 gm/dL Albumin/Globulin Ratio 1.1 (1.1-1.8) Arterial Blood Potassium (3.6-5.2) mmol/L HIV 1&2 Ag/Ab, 4th Gen (Nonreactive) Ur L.pneumophila Ag (NEGATIVE) 04/22/17 04/22/17 04/21/17 Range/Units 16:58 07:30 19:53 WBC (4.5-11.0) 10^3/ul RBC (3.5-6.1) 10^6/uL Hgb (14.0-18.0) g/dL Hct (42.0-52.0) % MCV (80.0-105.0) fl MCH (25.0-35.0) pg MCHC (31.0-37.0) g/dl RDW (11.5-14.5) % Plt Count (120.0-450.0) 10^3/uL MPV (7.0-11.0) fl PT (9.9-11.8) Seconds INR (0.93-1.08) pCO2 (35-45) mm/Hg pO2 (80-100) mm/Hg HCO3 (21-28) mmol/L ABG pH (7.35-7.45) ABG Total CO2 (22-28) mmol.L ABG O2 Saturation (95-98) % ABG Base Excess (-2.0-3.0) mmol/L ABG Potassium (3.6-5.2) mmol/L Glucose (75-110) mg/dl Lactate (0.7-2.1) mmol/L FiO2 % Sodium (132-148) mmol/L Potassium (3.6-5.0) mmol/L Chloride (95-110) mmol/L Carbon Dioxide (21-33) mmol/L Anion Gap (10-20) BUN (7-21) mg/dL Creatinine (0.8-1.5) mg/dL Est GFR ( Amer) Est GFR (Non-Af Amer) POC Glucose (mg/dL) 114 H 83 (65-110) mg/dL Random Glucose (70-110) mg/dL Calcium (8.4-10.5) mg/dL Phosphorus (2.5-4.5) mg/dL Magnesium (1.7-2.2) mg/dL Total Bilirubin (0.2-1.3) mg/dL AST (17-59) U/L ALT (7-56) U/L Alkaline Phosphatase (38-126) U/L Total Protein (5.8-8.3) g/dL Albumin (3.0-4.8) g/dL Globulin gm/dL Albumin/Globulin Ratio (1.1-1.8) Arterial Blood Potassium (3.6-5.2) mmol/L HIV 1&2 Ag/Ab, 4th Gen (Nonreactive) Ur L.pneumophila Ag Negative (NEGATIVE) 04/21/17 Range/Units 05:00 WBC (4.5-11.0) 10^3/ul RBC (3.5-6.1) 10^6/uL Hgb (14.0-18.0) g/dL Hct (42.0-52.0) % MCV (80.0-105.0) fl MCH (25.0-35.0) pg MCHC (31.0-37.0) g/dl RDW (11.5-14.5) % Plt Count (120.0-450.0) 10^3/uL MPV (7.0-11.0) fl PT (9.9-11.8) Seconds INR (0.93-1.08) pCO2 (35-45) mm/Hg pO2 (80-100) mm/Hg HCO3 (21-28) mmol/L ABG pH (7.35-7.45) ABG Total CO2 (22-28) mmol.L ABG O2 Saturation (95-98) % ABG Base Excess (-2.0-3.0) mmol/L ABG Potassium (3.6-5.2) mmol/L Glucose (75-110) mg/dl Lactate (0.7-2.1) mmol/L FiO2 % Sodium (132-148) mmol/L Potassium (3.6-5.0) mmol/L Chloride (95-110) mmol/L Carbon Dioxide (21-33) mmol/L Anion Gap (10-20) BUN (7-21) mg/dL Creatinine (0.8-1.5) mg/dL Est GFR ( Amer) Est GFR (Non-Af Amer) POC Glucose (mg/dL) (65-110) mg/dL Random Glucose (70-110) mg/dL Calcium (8.4-10.5) mg/dL Phosphorus (2.5-4.5) mg/dL Magnesium (1.7-2.2) mg/dL Total Bilirubin (0.2-1.3) mg/dL AST (17-59) U/L ALT (7-56) U/L Alkaline Phosphatase (38-126) U/L Total Protein (5.8-8.3) g/dL Albumin (3.0-4.8) g/dL Globulin gm/dL Albumin/Globulin Ratio (1.1-1.8) Arterial Blood Potassium (3.6-5.2) mmol/L HIV 1&2 Ag/Ab, 4th Gen Nonreactive (Nonreactive) Ur L.pneumophila Ag (NEGATIVE) Laboratory Results - last 24 hr 04/21/17 04/21/17 04/22/17 05:00 19:53 07:30 WBC RBC Hgb Hct MCV MCH MCHC RDW Plt Count MPV PT INR pCO2 pO2 HCO3 ABG pH ABG Total CO2 ABG O2 Saturation ABG Base Excess ABG Potassium Glucose Lactate FiO2 Sodium Potassium Chloride Carbon Dioxide Anion Gap BUN Creatinine Est GFR ( Amer) Est GFR (Non-Af Amer) POC Glucose (mg/dL) 83 Random Glucose Calcium Phosphorus Magnesium Total Bilirubin AST ALT Alkaline Phosphatase Total Protein Albumin Globulin Albumin/Globulin Ratio Arterial Blood Potassium HIV 1&2 Ag/Ab, 4th Gen Nonreactive Ur L.pneumophila Ag Negative 04/22/17 04/22/17 04/23/17 16:58 23:35 05:20 WBC 8.0 D RBC 4.58 Hgb 15.4 Hct 45.9 MCV 100.2 MCH 33.6 MCHC 33.6 RDW 12.1 Plt Count 183 MPV 10.6 PT INR pCO2 pO2 HCO3 ABG pH ABG Total CO2 ABG O2 Saturation ABG Base Excess ABG Potassium Glucose Lactate FiO2 Sodium Potassium Chloride Carbon Dioxide Anion Gap BUN Creatinine Est GFR ( Amer) Est GFR (Non-Af Amer) POC Glucose (mg/dL) 114 H 118 H Random Glucose Calcium Phosphorus Magnesium Total Bilirubin AST ALT Alkaline Phosphatase Total Protein Albumin Globulin Albumin/Globulin Ratio Arterial Blood Potassium HIV 1&2 Ag/Ab, 4th Gen Ur L.pneumophila Ag 04/23/17 04/23/17 04/23/17 05:20 05:20 06:35 WBC RBC Hgb Hct MCV MCH MCHC RDW Plt Count MPV PT 11.0 INR 1.02 pCO2 pO2 HCO3 ABG pH ABG Total CO2 ABG O2 Saturation ABG Base Excess ABG Potassium Glucose Lactate FiO2 Sodium 142 Potassium 3.6 Chloride 105 Carbon Dioxide 28 Anion Gap 13 BUN 12 Creatinine 0.9 Est GFR ( Amer) > 60 Est GFR (Non-Af Amer) > 60 POC Glucose (mg/dL) 125 H Random Glucose 122 H Calcium 9.0 Phosphorus 5.7 H Magnesium 1.5 L Total Bilirubin 1.5 H AST 39 ALT 35 Alkaline Phosphatase 135 H Total Protein 7.0 Albumin 3.6 Globulin 3.4 Albumin/Globulin Ratio 1.1 Arterial Blood Potassium HIV 1&2 Ag/Ab, 4th Gen Ur L.pneumophila Ag 04/23/17 06:45 WBC RBC Hgb Hct MCV MCH MCHC RDW Plt Count MPV PT INR pCO2 44 pO2 97.0 HCO3 26.0 ABG pH 7.38 ABG Total CO2 27.4 ABG O2 Saturation 98.5 H ABG Base Excess 0.5 ABG Potassium 3.2 L Glucose 115 H Lactate 0.7 FiO2 50.0 Sodium 141.0 Potassium Chloride 106.0 Carbon Dioxide Anion Gap BUN Creatinine Est GFR ( Amer) Est GFR (Non-Af Amer) POC Glucose (mg/dL) Random Glucose Calcium Phosphorus Magnesium Total Bilirubin AST ALT Alkaline Phosphatase Total Protein Albumin Globulin Albumin/Globulin Ratio Arterial Blood Potassium 3.2 L HIV 1&2 Ag/Ab, 4th Gen Ur L.pneumophila Ag Fingerstick Blood Sugar Results: 125 Review of Systems - Review of Systems Review of Systems: patient sedated, limited ROS, Assessment/Plan - Assessment and Plan (Free Text) Assessment: 52 year old male with PMH of opiate abuse, hx of heroin abuse, HTN, polycythemia vera and recent admission to [facility] for ischemic stroke involving Left MCA superior division and evidence of left internal carotid artery occlusion of 100% who was discharged to home on 04/17. Patient was found unresponsive by family after suspected overdose of methadone on 04/19 who was brought to [facility] ED and found to be in acute respiratory failure requiring intubation. Patient noted to have right sided hemiparesis and went for Head CT and CTA of head and neck yesterday. Suspicion of SAH vs hemorraghic stroke was raised, f/u MRI of head showed multiplle areas of foci of restricted diffusion within left frontal, parietal, and occipital white matter consistent with acute ischemic change Plan: Plan: Neuro: Acute Ischemic stroke 2/2 suspected showering of emboli from 100% occluded Left internal carotid artery - Head CT, CTA of head and neck notable for 100% occlusion of L internal carotid artery, SAH vs. acute ischemic stroke - MRI showing multiple foci of poor perfusion in left parietal, occipital left frontal white matter along with additional small foci of acute or subacute ischemia visualized in right frontal white matter. See report for full details. - Review of records from [place] for admission from 04/08 to 04/17 report patient had CTA of head and neck showing Left internal carotid artery 100% occluded, possible acute thrombus of Left MCA superior portion, with no intervention preformed - Head CT on admissio to [facility](04/20) showing no signs of acute intracranial hemmorhage, infarct, or intracranial hemorrhage - Will order echocardiogram for possible source of emboli - Speech, PT, OT - Neurology has been consulted and appreciate recs - Curbside indicates ASA, Coumadin recommended therapy for further stroke prevention - HASBLED 2 Iniital presentation of AMS 2/2 overdose vs. possible stroke - Patient was sedated and ventilated, now extubated and on RA - UDS showing positive barbs and benzo Pulm: Respiratory Failure requiring intubation - resolved - extubated and satting well Right sided Lower lobe pneumonia - CXR continued to show diffuse infiltrate but study poor due to rotation - Patient currently on Doxycycline, cefepime - ID consulted and following, appreciate recs CV: HTN - IV nicardipine gtt, titrate according, goal of SBP 120-130 EKG on admission showing sinus tachycardia Echocardiogram for possible embolic source considering hx of IV heroin abuse GI: stable - Protonix IVPB - Stopped tube feeds, NPO for now, awaiting speech and swallow eval Renal: - BUN/Cr: 12/0.9 - UOP good, continue to monitor - Monitor and replace electrolytes as necessary Heme: Hx of polycythemia vera (JAK2 mutation negative) H/H of 15.4/45.9 Stable, continue to monitor ID: Possible Right sided PNA 2/2 aspiration - Doxycycline, cefepime - Urine culture negative - Blood clx is positive for Gram positive cocci, coag neg - Consider vancomycin vs. naficillin - ID consulted and following Psych: Hx of Heroin abuse on methadone 60mg maintenance therapy Patient suspected to have taken excess methadone prior to presentation Psych consult appreciate recs Dispo: Patient extubated and on precedex, imaging of brain shows new acute ischemic changes, will assess patient functional status, continue medical management in ICU Case and plan discussed with attending, Dr. Murrell - Date & Time Date: 04/23/17 Time: 12:26 <Handy WHITE,Inamudelilah H - Last Filed: 04/23/17 14:07> CCU Objective - Vital Signs / Intake & Output Vital Signs (Last 4 hours): Vital Signs Temp Pulse Resp BP Pulse Ox 04/23/17 13:20 73 19 100 04/23/17 13:10 73 22 100 04/23/17 13:00 72 24 150/87 95 04/23/17 12:50 74 24 99 04/23/17 12:40 73 19 97 04/23/17 12:30 73 20 100 04/23/17 12:20 72 22 97 04/23/17 12:10 72 20 99 04/23/17 12:00 99.4 F 73 20 153/95 H 92 L 04/23/17 11:50 75 19 100 04/23/17 11:40 73 19 100 04/23/17 11:30 74 19 100 04/23/17 11:20 74 22 100 04/23/17 11:10 75 23 100 04/23/17 11:00 76 24 154/87 H 100 04/23/17 10:50 79 22 100 04/23/17 10:40 76 47 H 100 04/23/17 10:30 76 25 H 97 04/23/17 10:20 76 23 99 04/23/17 10:10 75 22 100 Intake and Output (Last 8hrs): Intake & Output 10/04/2904/23/17 04/23/17 22:59 06:59 14:59 Intake Total 2395 3715 2200 Output Total 2049 2049 1850 Balance 345 1665 350 Intake: IV 2315 3635 1600 Left Antecubital 120 Left Forearm 1914 1914 1600 Right Hand 1500 Oral 80 80 Tube Feeding 600 Output: Urine 1999 1999 1849 Urethral (Decker) 1999 1999 1849 Oral Regurgitation 50 50 Other: # Bowel Movements 1 0 - Medications Active Medications: Active Medications Generic Name Dose Route Start Last Admin Trade Name Freq PRN Reason Stop Dose Admin Aspirin 81 mg 04/24/17 10:00 Aspirin Chewable PO DAILY REPLACED BY [facility] Atorvastatin Calcium 20 mg 04/23/17 17:00 Lipitor PO DIN CATHERINE Chlorhexidine Gluconate 15 ml 04/20/17 18:00 04/23/17 10:19 Peridex PO 1 ml BID CATHERINE Administration Folic Acid 1 mg 04/22/17 10:00 04/23/17 10:16 Folic Acid PO 1 mg DAILY CATHERINE Administration Propofol 1,000 mg in 100 mls @ 2.722 mls/hr 04/20/17 00:58 04/22/17 09:26 Diprivan IV Infused .Q24H PRN Titration TITRATE PER MD ORDER Protocol 5 MCG/KG/MIN Sodium Chloride 1,000 mls @ 100 mls/hr 04/20/17 02:30 04/23/17 10:19 Sodium Chloride 0.9% IV 100 mls/hr .Q10H CATHERINE Administration Doxycycline Hyclate 100 mg/ 100 mls @ 100 mls/hr 04/21/17 10:30 04/23/17 10: 17 Sodium Chloride IVPB 100 mls/hr Q12 CATHERINE Administration Protocol Cefepime HCl 1 gm in 100 mls @ 100 mls/hr 04/21/17 10:30 04/23/17 10:18 Maxipime 1gm IVPB 100 mls/hr Q12 CATHERINE Administration Protocol Dexmedetomidine HCl 400 mcg in 100 mls @ 4.454 mls/hr 04/22/17 11:20 13:12 Precedex 4 Mcg/Ml (100 Ml) IV 0.6 mcg/kg/hr .[id number] PRN 13.363 mls/hr Sedation Administration Protocol 0.2 MCG/KG/HR Nicardipine HCl 20 mg in 200 mls @ 50 mls/hr 10/10/17 16:13 04/22/17 21:51 Cardene Iv Premix IV 5 mg/hr .Q4H PRN 50 mls/hr TITRATE PER MD ORDER Administration Protocol 5 MG/HR Pantoprazole Sodium 40 mg 04/20/17 10:00 04/23/17 10:16 Protonix Inj IVP 40 mg DAILY CATHERINE Administration Thiamine HCl 50 mg 04/22/17 10:00 04/23/17 10:16 Vitamin B1 Tab PO 50 mg DAILY CATHERINE Administration - Patient Studies Lab Studies: Lab Studies 04/23/17 04/23/17 04/23/17 Range/Units 06:45 06:35 05:20 WBC (4.5-11.0) 10^3/ul RBC (3.5-6.1) 10^6/uL Hgb (14.0-18.0) g/dL Hct (42.0-52.0) % MCV (80.0-105.0) fl MCH (25.0-35.0) pg MCHC (31.0-37.0) g/dl RDW (11.5-14.5) % Plt Count (120.0-450.0) 10^3/uL MPV (7.0-11.0) fl PT (9.9-11.8) Seconds INR (0.93-1.08) pCO2 44 (35-45) mm/Hg pO2 97.0 (80-100) mm/Hg HCO3 26.0 (21-28) mmol/L ABG pH 7.38 (7.35-7.45) ABG Total CO2 27.4 (22-28) mmol.L ABG O2 Saturation 98.5 H (95-98) % ABG Base Excess 0.5 (-2.0-3.0) mmol/L ABG Potassium 3.2 L (3.6-5.2) mmol/L Glucose 115 H (75-110) mg/dl Lactate 0.7 (0.7-2.1) mmol/L FiO2 50.0 % Sodium 141.0 (132-148) mmol/L Potassium (3.6-5.0) mmol/L Chloride 106.0 (95-110) mmol/L Carbon Dioxide (21-33) mmol/L Anion Gap (10-20) BUN (7-21) mg/dL Creatinine (0.8-1.5) mg/dL Est GFR ( Amer) Est GFR (Non-Af Amer) POC Glucose (mg/dL) 125 H (65-110) mg/dL Random Glucose (70-110) mg/dL Calcium (8.4-10.5) mg/dL Phosphorus (2.5-4.5) mg/dL Magnesium (1.7-2.2) mg/dL Total Bilirubin (0.2-1.3) mg/dL AST (17-59) U/L ALT (7-56) U/L Alkaline Phosphatase (38-126) U/L Total Protein (5.8-8.3) g/dL Albumin (3.0-4.8) g/dL Globulin gm/dL Albumin/Globulin Ratio (1.1-1.8) Triglycerides 190 H (35-160) mg/dL Cholesterol 150 (130-200) mg/dL LDL Cholesterol Direct 99 (0-129) mg/dL HDL Cholesterol 25 L (29-60) mg/dL Arterial Blood Potassium 3.2 L (3.6-5.2) mmol/L HIV 1&2 Ag/Ab, 4th Gen (Nonreactive) 04/23/17 04/23/17 04/23/17 Range/Units 05:20 05:20 05:20 WBC 8.0 D (4.5-11.0) 10^3/ul RBC 4.58 (3.5-6.1) 10^6/uL Hgb 15.4 (14.0-18.0) g/dL Hct 45.9 (42.0-52.0) % MCV 100.2 (80.0-105.0) fl MCH 33.6 (25.0-35.0) pg MCHC 33.6 (31.0-37.0) g/dl RDW 12.1 (11.5-14.5) % Plt Count 183 (120.0-450.0) 10^3/uL MPV 10.6 (7.0-11.0) fl PT 11.0 (9.9-11.8) Seconds INR 1.02 (0.93-1.08) pCO2 (35-45) mm/Hg pO2 (80-100) mm/Hg HCO3 (21-28) mmol/L ABG pH (7.35-7.45) ABG Total CO2 (22-28) mmol.L ABG O2 Saturation (95-98) % ABG Base Excess (-2.0-3.0) mmol/L ABG Potassium (3.6-5.2) mmol/L Glucose (75-110) mg/dl Lactate (0.7-2.1) mmol/L FiO2 % Sodium 142 (132-148) mmol/L Potassium 3.6 (3.6-5.0) mmol/L Chloride 105 (95-110) mmol/L Carbon Dioxide 28 (21-33) mmol/L Anion Gap 13 (10-20) BUN 12 (7-21) mg/dL Creatinine 0.9 (0.8-1.5) mg/dL Est GFR ( Amer) > 60 Est GFR (Non-Af Amer) > 60 POC Glucose (mg/dL) (65-110) mg/dL Random Glucose 122 H (70-110) mg/dL Calcium 9.0 (8.4-10.5) mg/dL Phosphorus 5.7 H (2.5-4.5) mg/dL Magnesium 1.5 L (1.7-2.2) mg/dL Total Bilirubin 1.5 H (0.2-1.3) mg/dL AST 39 (17-59) U/L ALT 35 (7-56) U/L Alkaline Phosphatase 135 H (38-126) U/L Total Protein 7.0 (5.8-8.3) g/dL Albumin 3.6 (3.0-4.8) g/dL Globulin 3.4 gm/dL Albumin/Globulin Ratio 1.1 (1.1-1.8) Triglycerides (35-160) mg/dL Cholesterol (130-200) mg/dL LDL Cholesterol Direct (0-129) mg/dL HDL Cholesterol (29-60) mg/dL Arterial Blood Potassium (3.6-5.2) mmol/L HIV 1&2 Ag/Ab, 4th Gen (Nonreactive) 04/22/17 04/22/17 04/22/17 Range/Units 23:35 16:58 07:30 WBC (4.5-11.0) 10^3/ul RBC (3.5-6.1) 10^6/uL Hgb (14.0-18.0) g/dL Hct (42.0-52.0) % MCV (80.0-105.0) fl MCH (25.0-35.0) pg MCHC (31.0-37.0) g/dl RDW (11.5-14.5) % Plt Count (120.0-450.0) 10^3/uL MPV (7.0-11.0) fl PT (9.9-11.8) Seconds INR (0.93-1.08) pCO2 (35-45) mm/Hg pO2 (80-100) mm/Hg HCO3 (21-28) mmol/L ABG pH (7.35-7.45) ABG Total CO2 (22-28) mmol.L ABG O2 Saturation (95-98) % ABG Base Excess (-2.0-3.0) mmol/L ABG Potassium (3.6-5.2) mmol/L Glucose (75-110) mg/dl Lactate (0.7-2.1) mmol/L FiO2 % Sodium (132-148) mmol/L Potassium (3.6-5.0) mmol/L Chloride (95-110) mmol/L Carbon Dioxide (21-33) mmol/L Anion Gap (10-20) BUN (7-21) mg/dL Creatinine (0.8-1.5) mg/dL Est GFR ( Amer) Est GFR (Non-Af Amer) POC Glucose (mg/dL) 118 H 114 H 83 (65-110) mg/dL Random Glucose (70-110) mg/dL Calcium (8.4-10.5) mg/dL Phosphorus (2.5-4.5) mg/dL Magnesium (1.7-2.2) mg/dL Total Bilirubin (0.2-1.3) mg/dL AST (17-59) U/L ALT (7-56) U/L Alkaline Phosphatase (38-126) U/L Total Protein (5.8-8.3) g/dL Albumin (3.0-4.8) g/dL Globulin gm/dL Albumin/Globulin Ratio (1.1-1.8) Triglycerides (35-160) mg/dL Cholesterol (130-200) mg/dL LDL Cholesterol Direct (0-129) mg/dL HDL Cholesterol (29-60) mg/dL Arterial Blood Potassium (3.6-5.2) mmol/L HIV 1&2 Ag/Ab, 4th Gen (Nonreactive) 04/21/17 Range/Units 05:00 WBC (4.5-11.0) 10^3/ul RBC (3.5-6.1) 10^6/uL Hgb (14.0-18.0) g/dL Hct (42.0-52.0) % MCV (80.0-105.0) fl MCH (25.0-35.0) pg MCHC (31.0-37.0) g/dl RDW (11.5-14.5) % Plt Count (120.0-450.0) 10^3/uL MPV (7.0-11.0) fl PT (9.9-11.8) Seconds INR (0.93-1.08) pCO2 (35-45) mm/Hg pO2 (80-100) mm/Hg HCO3 (21-28) mmol/L ABG pH (7.35-7.45) ABG Total CO2 (22-28) mmol.L ABG O2 Saturation (95-98) % ABG Base Excess (-2.0-3.0) mmol/L ABG Potassium (3.6-5.2) mmol/L Glucose (75-110) mg/dl Lactate (0.7-2.1) mmol/L FiO2 % Sodium (132-148) mmol/L Potassium (3.6-5.0) mmol/L Chloride (95-110) mmol/L Carbon Dioxide (21-33) mmol/L Anion Gap (10-20) BUN (7-21) mg/dL Creatinine (0.8-1.5) mg/dL Est GFR ( Amer) Est GFR (Non-Af Amer) POC Glucose (mg/dL) (65-110) mg/dL Random Glucose (70-110) mg/dL Calcium (8.4-10.5) mg/dL Phosphorus (2.5-4.5) mg/dL Magnesium (1.7-2.2) mg/dL Total Bilirubin (0.2-1.3) mg/dL AST (17-59) U/L ALT (7-56) U/L Alkaline Phosphatase (38-126) U/L Total Protein (5.8-8.3) g/dL Albumin (3.0-4.8) g/dL Globulin gm/dL Albumin/Globulin Ratio (1.1-1.8) Triglycerides (35-160) mg/dL Cholesterol (130-200) mg/dL LDL Cholesterol Direct (0-129) mg/dL HDL Cholesterol (29-60) mg/dL Arterial Blood Potassium (3.6-5.2) mmol/L HIV 1&2 Ag/Ab, 4th Gen Nonreactive (Nonreactive) Laboratory Results - last 24 hr 04/21/17 04/22/17 04/22/17 05:00 07:30 16:58 WBC RBC Hgb Hct MCV MCH MCHC RDW Plt Count MPV PT INR pCO2 pO2 HCO3 ABG pH ABG Total CO2 ABG O2 Saturation ABG Base Excess ABG Potassium Glucose Lactate FiO2 Sodium Potassium Chloride Carbon Dioxide Anion Gap BUN Creatinine Est GFR ( Amer) Est GFR (Non-Af Amer) POC Glucose (mg/dL) 83 114 H Random Glucose Calcium Phosphorus Magnesium Total Bilirubin AST ALT Alkaline Phosphatase Total Protein Albumin Globulin Albumin/Globulin Ratio Triglycerides Cholesterol LDL Cholesterol Direct HDL Cholesterol Arterial Blood Potassium HIV 1&2 Ag/Ab, 4th Gen Nonreactive 04/22/17 04/23/17 04/23/17 23:35 05:20 05:20 WBC 8.0 D RBC 4.58 Hgb 15.4 Hct 45.9 MCV 100.2 MCH 33.6 MCHC 33.6 RDW 12.1 Plt Count 183 MPV 10.6 PT INR pCO2 pO2 HCO3 ABG pH ABG Total CO2 ABG O2 Saturation ABG Base Excess ABG Potassium Glucose Lactate FiO2 Sodium 142 Potassium 3.6 Chloride 105 Carbon Dioxide 28 Anion Gap 13 BUN 12 Creatinine 0.9 Est GFR ( Amer) > 60 Est GFR (Non-Af Amer) > 60 POC Glucose (mg/dL) 118 H Random Glucose 122 H Calcium 9.0 Phosphorus 5.7 H Magnesium 1.5 L Total Bilirubin 1.5 H AST 39 ALT 35 Alkaline Phosphatase 135 H Total Protein 7.0 Albumin 3.6 Globulin 3.4 Albumin/Globulin Ratio 1.1 Triglycerides Cholesterol LDL Cholesterol Direct HDL Cholesterol Arterial Blood Potassium HIV 1&2 Ag/Ab, 4th Gen 04/23/17 04/23/17 04/23/17 05:20 05:20 06:35 WBC RBC Hgb Hct MCV MCH MCHC RDW Plt Count MPV PT 11.0 INR 1.02 pCO2 pO2 HCO3 ABG pH ABG Total CO2 ABG O2 Saturation ABG Base Excess ABG Potassium Glucose Lactate FiO2 Sodium Potassium Chloride Carbon Dioxide Anion Gap BUN Creatinine Est GFR ( Amer) Est GFR (Non-Af Amer) POC Glucose (mg/dL) 125 H Random Glucose Calcium Phosphorus Magnesium Total Bilirubin AST ALT Alkaline Phosphatase Total Protein Albumin Globulin Albumin/Globulin Ratio Triglycerides 190 H Cholesterol 150 LDL Cholesterol Direct 99 HDL Cholesterol 25 L Arterial Blood Potassium HIV 1&2 Ag/Ab, 4th Gen 04/23/17 06:45 WBC RBC Hgb Hct MCV MCH MCHC RDW Plt Count MPV PT INR pCO2 44 pO2 97.0 HCO3 26.0 ABG pH 7.38 ABG Total CO2 27.4 ABG O2 Saturation 98.5 H ABG Base Excess 0.5 ABG Potassium 3.2 L Glucose 115 H Lactate 0.7 FiO2 50.0 Sodium 141.0 Potassium Chloride 106.0 Carbon Dioxide Anion Gap BUN Creatinine Est GFR ( Amer) Est GFR (Non-Af Amer) POC Glucose (mg/dL) Random Glucose Calcium Phosphorus Magnesium Total Bilirubin AST ALT Alkaline Phosphatase Total Protein Albumin Globulin Albumin/Globulin Ratio Triglycerides Cholesterol LDL Cholesterol Direct HDL Cholesterol Arterial Blood Potassium 3.2 L HIV 1&2 Ag/Ab, 4th Gen Attending/Attestation - Attestation I have personally seen and examined this patient.: Yes I have fully participated in the care of the patient.: Yes I have reviewed all pertinent clinical information: Yes Notes (Text): 04/23/17 14:04 52 y/o M w/ new acute and subacute multi infarcts. Pt was seen to have AMS off sedation and combative behavior. Although he was able to pass SBT trial and extubate. Pt placed on Precedex due to combative behavior/ withdrawl. New CVA , could be embolic and known to have ICA blockage. Strict BP control on cardene .ECHo ordered . Transition to p.o meds as tolerated . NGT in place. No asprin, plavix at this point due to risk of bleeding conversion. Psych consult needed. DVT P scd ppi cc time 45 min
--- NOTE | 2017-04-23 13:02 | CP.PCM.PN ---
<Wanda Bauer - Last Filed: 04/23/17 12:55> Subjective - Date & Time of Evaluation Date of Evaluation: 04/23/17 Time of Evaluation: 12:55 - Subjective Subjective: Neurology Progress Note for Raimundo Burgos PGY2 Patient seen and examined at bedside. As per nursing, there were no acute overnight events. Patient was intubated, but awake and alert. ROS could not be obtained. Objective - Vital Signs/Intake and Output Vital Signs (last 24 hours): Temp Pulse Resp BP Pulse Ox 100.6 F H 76 24 154/87 H 100 04/23/17 08:00 04/23/17 11:00 04/23/17 11:00 04/23/17 11:00 04/23/17 11:00 Intake and Output: 04/23/17 04/23/17 06:59 18:59 Intake Total 4015 2200 Output Total 2050 1850 Balance 1965 350 - Medications Medications: Current Medications Chlorhexidine Gluconate (Peridex) 15 ml PO BID [facility] Last Admin: 04/23/17 10:19 Dose: 1 ml Folic Acid (Folic Acid) 1 mg PO DAILY [facility] Last Admin: 04/23/17 10:16 Dose: 1 mg Propofol (Diprivan) 1,000 mg in 100 mls @ 2.722 mls/hr IV .Q24H PRN; Protocol; 5 MCG/KG/MIN PRN Reason: TITRATE PER MD ORDER Last Titration: 04/22/17 09:26 Dose: Infused Sodium Chloride (Sodium Chloride 0.9%) 1,000 mls @ 100 mls/hr IV .Q10H [facility] Last Admin: 04/23/17 10:19 Dose: 100 mls/hr Doxycycline Hyclate 100 mg/ (Sodium Chloride) 100 mls @ 100 mls/hr IVPB Q12 [facility] PRN Reason: Protocol Last Admin: 04/23/17 10:17 Dose: 100 mls/hr Cefepime HCl (Maxipime 1gm) 1 gm in 100 mls @ 100 mls/hr IVPB Q12 [facility] PRN Reason: Protocol Last Admin: 04/23/17 10:18 Dose: 100 mls/hr Dexmedetomidine HCl (Precedex 4 Mcg/Ml (100 Ml)) 400 mcg in 100 mls @ 4.454 mls /hr IV .[id number] PRN; Protocol; 0.2 MCG/KG/HR PRN Reason: Sedation Last Admin: 04/23/17 00:15 Dose: 1.8 mcg/kg/hr, 40.089 mls/hr Nicardipine HCl (Cardene Iv Premix) 20 mg in 200 mls @ 50 mls/hr IV .Q4H PRN; Protocol; 5 MG/HR PRN Reason: TITRATE PER MD ORDER Last Admin: 04/22/17 21:51 Dose: 5 mg/hr, 50 mls/hr Pantoprazole Sodium (Protonix Inj) 40 mg IVP DAILY [facility] Last Admin: 04/23/17 10:16 Dose: 40 mg Thiamine HCl (Vitamin B1 Tab) 50 mg PO DAILY [facility] Last Admin: 04/23/17 10:16 Dose: 50 mg - Labs Labs: 04/23/17 05:20 04/23/17 05:20 PT 11.0 Seconds (9.9-11.8) 04/23/17 05:20 INR 1.02 (0.93-1.08) 04/23/17 05:20 APTT 28.7 Seconds (23.7-30.8) 04/19/17 23:27 - Constitutional Appears: No Acute Distress - Head Exam Head Exam: ATRAUMATIC, NORMAL INSPECTION, NORMOCEPHALIC - Eye Exam Eye Exam: Normal appearance, PERRL Pupil Exam: NORMAL ACCOMODATION, PERRL - ENT Exam ENT Exam: Mucous Membranes Moist - Respiratory Exam Respiratory Exam: Clear to Ausculation Bilateral, NORMAL BREATHING PATTERN. absent: Rales, Rhonchi, Wheezes - Cardiovascular Exam Cardiovascular Exam: REGULAR RHYTHM, +S1, +S2. absent: Gallop, Rubs, Murmur - GI/Abdominal Exam GI & Abdominal Exam: Soft, Normal Bowel Sounds. absent: Rigid, Tenderness, Mass , Rebound - Extremities Exam Extremities Exam: Normal Inspection. absent: Calf Tenderness, Pedal Edema - Neurological Exam Neurological Exam: Awake, CN II-XII Intact Neuro motor strength exam: Left Upper Extremity: 5, Right Upper Extremity: 0, Left Lower Extremity: 5, Right Lower Extremity: 0 Additional comments: + Babinski on R - Skin Skin Exam: Dry, Normal Color, Warm Assessment and Plan - Assessment and Plan (Free Text) Assessment: This is a 52Y M with PMH polysubstance abuse, HTN, HLD, polycythemia vera who was recently admitted to [facility] for L MCA CVA and L carotid stenosis of 100% who was d/c home on 04/17/17 and found unresponsive as per family. Family suspected overdose on methadone, patient was intubated and sedated. Head CT showed questionable L posterior parietal subarachnoid hemmorhage. MRI of brain showed multifocal acute ischemic changes in L frontal, parietal and occipital matter with subacute ischemia in R frontal lobe, as well as limited diffusion in L basal ganglia and temporal cortex. This MRI findings are consistent with cardioembolic stroke. Plan: - Recommend ASA and Coumadin (Has-Bled score of 1- correlates with - Recommend Cardiology evaluation for cardioembolic CVA - Will start on Lipitor 20mg - Recommend ZIGGY - Maintain SBP to 120-130s. Thank you for this consultation. Will sign off. Please re-consult if needed. Case seen, discussed and reviewed with Dr. Lara. Raimundo Bauer PGY2 <Vahe Lara - Last Filed: 04/23/17 13:48> Objective - Vital Signs/Intake and Output Vital Signs (last 24 hours): Temp Pulse Resp BP Pulse Ox 99.4 F 73 19 150/87 100 04/23/17 12:00 04/23/17 13:20 04/23/17 13:20 04/23/17 13:00 04/23/17 13:20 Intake and Output: 04/23/17 04/23/17 06:59 18:59 Intake Total 4115 2200 Output Total 2050 1850 Balance 2065 350 - Medications Medications: Current Medications Aspirin (Aspirin Chewable) 81 mg PO DAILY [facility] Atorvastatin Calcium (Lipitor) 20 mg PO DIN [facility] Chlorhexidine Gluconate (Peridex) 15 ml PO BID [facility] Last Admin: 04/23/17 10:19 Dose: 1 ml Folic Acid (Folic Acid) 1 mg PO DAILY [facility] Last Admin: 04/23/17 10:16 Dose: 1 mg Propofol (Diprivan) 1,000 mg in 100 mls @ 2.722 mls/hr IV .Q24H PRN; Protocol; 5 MCG/KG/MIN PRN Reason: TITRATE PER MD ORDER Last Titration: 04/22/17 09:26 Dose: Infused Sodium Chloride (Sodium Chloride 0.9%) 1,000 mls @ 100 mls/hr IV .Q10H [facility] Last Admin: 04/23/17 10:19 Dose: 100 mls/hr Doxycycline Hyclate 100 mg/ (Sodium Chloride) 100 mls @ 100 mls/hr IVPB Q12 [facility] PRN Reason: Protocol Last Admin: 04/23/17 10:17 Dose: 100 mls/hr Cefepime HCl (Maxipime 1gm) 1 gm in 100 mls @ 100 mls/hr IVPB Q12 [facility] PRN Reason: Protocol Last Admin: 04/23/17 10:18 Dose: 100 mls/hr Dexmedetomidine HCl (Precedex 4 Mcg/Ml (100 Ml)) 400 mcg in 100 mls @ 4.454 mls /hr IV .[id number] PRN; Protocol; 0.2 MCG/KG/HR PRN Reason: Sedation Last Admin: 04/23/17 13:12 Dose: 0.6 mcg/kg/hr, 13.363 mls/hr Nicardipine HCl (Cardene Iv Premix) 20 mg in 200 mls @ 50 mls/hr IV .Q4H PRN; Protocol; 5 MG/HR PRN Reason: TITRATE PER MD ORDER Last Admin: 04/22/17 21:51 Dose: 5 mg/hr, 50 mls/hr Pantoprazole Sodium (Protonix Inj) 40 mg IVP DAILY [facility] Last Admin: 04/23/17 10:16 Dose: 40 mg Thiamine HCl (Vitamin B1 Tab) 50 mg PO DAILY [facility] Last Admin: 04/23/17 10:16 Dose: 50 mg - Labs Labs: 04/23/17 05:20 04/23/17 05:20 PT 11.0 Seconds (9.9-11.8) 04/23/17 05:20 INR 1.02 (0.93-1.08) 04/23/17 05:20 APTT 28.7 Seconds (23.7-30.8) 04/19/17 23:27 Assessment and Plan - Assessment and Plan (Free Text) Plan: multiple left cerebral cva is likely embolic from left ICA occlusion.
[2017-04-23 13:26] LABS: CHOLESTEROL 150 mg/dL (130-200)
--- NOTE | 2017-04-23 13:38 | RAD ---
HISTORY: clinical evaluation of PNA COMPARISON: 04/22/2017 FINDINGS: LUNGS: Endotracheal and nasogastric tube in satisfactory position. Diminished volume in the right lung unchanged no focal infiltrate PLEURA: No significant pleural effusion identified, no pneumothorax apparent. CARDIOVASCULAR: Normal. OSSEOUS STRUCTURES: No significant abnormalities. VISUALIZED UPPER ABDOMEN: Normal. OTHER FINDINGS: None. IMPRESSION: Diminished volume in the right lung. No focal infiltrate
--- NOTE | 2017-04-23 14:13 | CP.PCM.PN ---
<Cher Cordova - Last Filed: 04/23/17 15:14> Subjective - Date & Time of Evaluation Date of Evaluation: 04/23/17 Time of Evaluation: 14:10 - Subjective Subjective: Hospitalist Service Progress Note: Patient seen and examined at bedside. Patient went for CT brain/head/neck and MRI brain yesterday. Currently intubated and sedated. Opens eyes on command. Withdraw to painful stimuli. Only moving L sided extremities. ROS not obtained. Objective - Vital Signs/Intake and Output Vital Signs (last 24 hours): Temp Pulse Resp BP Pulse Ox 99.4 F 73 19 150/87 100 04/23/17 12:00 04/23/17 13:20 04/23/17 13:20 04/23/17 13:00 04/23/17 13:20 Intake and Output: 04/23/17 04/23/17 06:59 18:59 Intake Total 4115 2200 Output Total 2050 1850 Balance 2065 350 - Medications Medications: Current Medications Aspirin (Aspirin Chewable) 81 mg PO DAILY [facility] Atorvastatin Calcium (Lipitor) 20 mg PO DIN [facility] Chlorhexidine Gluconate (Peridex) 15 ml PO BID [facility] Last Admin: 04/23/17 10:19 Dose: 1 ml Folic Acid (Folic Acid) 1 mg PO DAILY [facility] Last Admin: 04/23/17 10:16 Dose: 1 mg Propofol (Diprivan) 1,000 mg in 100 mls @ 2.722 mls/hr IV .Q24H PRN; Protocol; 5 MCG/KG/MIN PRN Reason: TITRATE PER MD ORDER Last Titration: 04/22/17 09:26 Dose: Infused Sodium Chloride (Sodium Chloride 0.9%) 1,000 mls @ 100 mls/hr IV .Q10H [facility] Last Admin: 04/23/17 10:19 Dose: 100 mls/hr Doxycycline Hyclate 100 mg/ (Sodium Chloride) 100 mls @ 100 mls/hr IVPB Q12 [facility] PRN Reason: Protocol Last Admin: 04/23/17 10:17 Dose: 100 mls/hr Cefepime HCl (Maxipime 1gm) 1 gm in 100 mls @ 100 mls/hr IVPB Q12 [facility] PRN Reason: Protocol Last Admin: 04/23/17 10:18 Dose: 100 mls/hr Dexmedetomidine HCl (Precedex 4 Mcg/Ml (100 Ml)) 400 mcg in 100 mls @ 4.454 mls /hr IV .[id number] PRN; Protocol; 0.2 MCG/KG/HR PRN Reason: Sedation Last Admin: 04/23/17 13:12 Dose: 0.6 mcg/kg/hr, 13.363 mls/hr Nicardipine HCl (Cardene Iv Premix) 20 mg in 200 mls @ 50 mls/hr IV .Q4H PRN; Protocol; 5 MG/HR PRN Reason: TITRATE PER MD ORDER Last Admin: 04/22/17 21:51 Dose: 5 mg/hr, 50 mls/hr Pantoprazole Sodium (Protonix Inj) 40 mg IVP DAILY [facility] Last Admin: 04/23/17 10:16 Dose: 40 mg Thiamine HCl (Vitamin B1 Tab) 50 mg PO DAILY [facility] Last Admin: 04/23/17 10:16 Dose: 50 mg - Labs Labs: 04/23/17 05:20 04/23/17 05:20 PT 11.0 Seconds (9.9-11.8) 04/23/17 05:20 INR 1.02 (0.93-1.08) 04/23/17 05:20 APTT 28.7 Seconds (23.7-30.8) 04/19/17 23:27 - Constitutional Appears: Non-toxic, No Acute Distress - Head Exam Head Exam: ATRAUMATIC, NORMAL INSPECTION - Eye Exam Eye Exam: Normal appearance Pupil Exam: PERRL - ENT Exam ENT Exam: Mucous Membranes Moist Additional comments: +Dobhoff +ET tube - Neck Exam Neck Exam: Full ROM - Respiratory Exam Respiratory Exam: Decreased Breath Sounds, Rhonchi, NORMAL BREATHING PATTERN. absent: Rales, Wheezes - Cardiovascular Exam Cardiovascular Exam: REGULAR RHYTHM, +S1, +S2 - GI/Abdominal Exam GI & Abdominal Exam: Soft. absent: Guarding, Rigid, Tenderness, Rebound - Rectal Exam Rectal Exam: Deferred - Exam Additional comments: + Testicular cyst - Extremities Exam Additional comments: + SCDs - Back Exam Back Exam: NORMAL INSPECTION - Neurological Exam Neurological Exam: absent: Alert (Intubated and sedated) - Skin Skin Exam: Dry, Normal Color, Warm Assessment and Plan - Assessment and Plan (Free Text) Assessment: This is a 52Y M with PMH polysubstance abuse, HTN, HLD, polycythemia vera who was recently admitted to [facility] for L MCA CVA and L carotid stenosis of 100% who was d/c home on 04/17/17 and found unresponsive as per family. Family suspected overdose on methadone, patient was intubated and sedated. Head CT showed questionable L posterior parietal subarachnoid hemmorhage. MRI of brain showed multifocal acute ischemic changes in L frontal, parietal and occipital matter with subacute ischemia in R frontal lobe, as well as limited diffusion in L basal ganglia and temporal cortex. This MRI findings are consistent with cardioembolic stroke. Plan: 1. Acute CVA, Hx of Ischemic CVA with lesion of left MCA superior division - Patient presented to [facility] on 04/08 with expressive aphasia - Per the family, patient was ambulating after discharge from [place] on 04/17 - CTA Head and Neck showed left internal carotid artery stenosis 100% occlusion at that time - CT 04/22 showed possible subarachnoid hemorrhage with L ICA occlusion - MRI showing acute ischemic changes within L frontal, parietal, and occiptal lobe, embolic in nature - Echo ordered, F/U lipid panel - Cardiology consulted, f/u recommendations - Neurology recommending starting ASA and coumadin - Neurology consulted, follow up recommendations - Neurosurgery consulted for subarachnoid hemorrhage, imaging reviewed SAH less likely 2. Acute respiratory failure in the setting of severe sepsis 2/2 aspiration pneumonia - Intubated, on sedation - ABG reviewed - Plan for possible extubation today - F/U repeat CXR - Currently on Cefepime and Doxycycline (Day 3) - NS @ 100 cc/hr - Continue tube feeds - F/U pneumonia workup , sputum cx - First Blood culture showing no growth, second cx growing gram positive cocci; urine cx negative - Spiked 100.4 temp yesterday, repeat blood cx ordered - ID consulted, F/U recommendations 3. Methadone and Opioid abuse - S/P narcan in the field - UTOX positive for benzos and methadone - Home dose of Methadone 60mg daily started - Hep panel negative - Psych consulted, f/u recommendations 4. Hypertension -Currently on Nicardipine drip 5. Testicular Cyst -Bedside US ordered GI/DVT PPX - Protonix <Bebe Murrell - Last Filed: 04/24/17 18:07> Objective - Vital Signs/Intake and Output Vital Signs (last 24 hours): Temp Pulse Resp BP Pulse Ox 98.1 F 65 48 H 124/80 98 04/24/17 12:00 04/24/17 13:50 04/24/17 11:00 04/24/17 13:00 04/24/17 13:50 Intake and Output: 04/24/17 04/24/17 06:59 18:59 Intake Total 2219 325 Output Total 1750 Balance 469 325 - Medications Medications: Current Medications Aspirin (Aspirin Chewable) 81 mg PO DAILY [facility] Last Admin: 04/24/17 09:26 Dose: 81 mg Atorvastatin Calcium (Lipitor) 20 mg PO DIN [facility] Last Admin: 04/24/17 17:27 Dose: 20 mg Chlorhexidine Gluconate (Peridex) 15 ml PO BID [facility] Last Admin: 04/24/17 17:26 Dose: 15 ml Clopidogrel Bisulfate (Plavix) 75 mg PO DAILY [facility] Last Admin: 04/24/17 15:49 Dose: 75 mg Docusate Sodium (Colace Liquid) 100 mg PO TID [facility] Last Admin: 04/24/17 17:26 Dose: Not Given Folic Acid (Folic Acid) 1 mg PO DAILY [facility] Last Admin: 04/24/17 09:27 Dose: 1 mg Heparin Sodium (Porcine) (Heparin) 5,000 units SC Q12 [facility] PRN Reason: Protocol Stop: 04/25/17 11:45 Last Admin: 04/24/17 15:49 Dose: 5,000 units Propofol (Diprivan) 1,000 mg in 100 mls @ 2.722 mls/hr IV .Q24H PRN; Protocol; 5 MCG/KG/MIN PRN Reason: TITRATE PER MD ORDER Last Titration: 04/22/17 09:26 Dose: Infused Sodium Chloride (Sodium Chloride 0.9%) 1,000 mls @ 100 mls/hr IV .Q10H [facility] Last Admin: 04/24/17 04:20 Dose: 100 mls/hr Dexmedetomidine HCl (Precedex 4 Mcg/Ml (100 Ml)) 400 mcg in 100 mls @ 4.454 mls /hr IV .[id number] PRN; Protocol; 0.2 MCG/KG/HR PRN Reason: Sedation Last Titration: 04/24/17 11:59 Dose: 0 mcg/kg/hr, 0 mls/hr Nicardipine HCl (Cardene Iv Premix) 20 mg in 200 mls @ 50 mls/hr IV .Q4H PRN; Protocol; 5 MG/HR PRN Reason: TITRATE PER MD ORDER Last Titration: 04/24/17 10:01 Dose: Infused Meropenem 1g/NS 100mL IVPB (Meropenem 1g/Ns 100ml Ivpb) 1 gm in 100 mls @ 100 mls/hr IVPB Q8 [facility] PRN Reason: Protocol Stop: 05/03/17 14:01 Last Admin: 04/24/17 15:49 Dose: 100 mls/hr Pantoprazole Sodium (Protonix Inj) 40 mg IVP DAILY [facility] Last Admin: 04/24/17 09:26 Dose: 40 mg Quetiapine Fumarate (Seroquel) 12.5 mg PO BID [facility] PRN Reason: Protocol Last Admin: 04/24/17 17:27 Dose: 12.5 mg Thiamine HCl (Vitamin B1 Tab) 50 mg PO DAILY [facility] Last Admin: 04/24/17 09:27 Dose: 50 mg Warfarin Sodium (Coumadin) 5 mg PO 1800 [facility] PRN Reason: Protocol - Labs Labs: 04/24/17 05:30 04/24/17 05:30 PT 11.0 Seconds (9.9-11.8) 04/23/17 05:20 INR 1.02 (0.93-1.08) 04/23/17 05:20 APTT 28.7 Seconds (23.7-30.8) 04/19/17 23:27 Attending/Attestation - Attestation I have personally seen and examined this patient.: Yes I have fully participated in the care of the patient.: Yes I have reviewed all pertinent clinical information, including history, physical exam and plan: Yes Notes (Text): I have seen and examined the patient at bedside. Agree with the note above with the following additions/ exceptions: Briefly this is 52 year old male with history of methadone/opioid abuse, PV, recent ischemic CVA (left MCA lesion) with broca's aphasia who was brought for evaluation of AMS, hypoxemic respiratory failure s/p intubation most likely due to aspiration pneumonia. Upon admission, CT head negative. CTA from [place] revealed 100% occlusion of left ICA. As sedation was titrated, it was noticed that patient was not moving his right side. CT head was obtained which showed possible SAH. Antihypertensives were started and heparin was discontinued. MRI brain resulted later which showed acute and subacute infarcts embolic in nature. Will order echo and cardio consult. Speech and swallow pending. He is on cefepime and vanco. Procal elevated. Will follow up cultures. UDS positive for BZ and methadone. Methadone was restarted. Patient remains intubated. Wean as per geography head. Testicular ultrasound pending. Dr Bebe Murrell.
--- NOTE | 2017-04-23 15:23 | PN ---
DATE: 04/23/2017 SUBJECTIVE: The patient is in the ICU on bed #2, was seen earlier this morning and continued to be in critical state. PHYSICAL EXAMINATION: VITAL: On exam, temperature is 98, blood pressure is 150/70, respiratory rate of 18, heart rate of 72. HEENT: Unremarkable. NECK: Supple. LUNGS: Decreased breath sounds. HEART EXAM: Normal S1 and S2. ABDOMINAL EXAMINATION: Soft and nontender. LABORATORY EXAMINATION: Reveals a white count of 8000, hemoglobin of 15. BUN of 12, creatinine of 0.9 and urinalysis is noted and urine for legionella antigen is negative, HIV is negative, hepatitis is negative. The #1 blood culture is positive for Gram-positive cocci which is reported to be a coag-negative staph by PNA-FISH and the other blood cultures are negative and urine culture is negative. REVIEW OF ORDERS: Reveals the patient to be on doxycycline and cefepime and Dr. Cher Barnes's progress note is reviewed and Dr. Lara's note is reviewed and appreciated. ASSESSMENT AND PLAN: A 52-year-old male seen early this morning in the ICU with systemic inflammatory response syndrome, toxic metabolic encephalopathy, respiratory failure, intubated on a ventilator and chronic alcohol and opioid use and thus far now with Gram-positive cocci, one bottle most likely contamination of coag-negative staph. We will make further recommendation and repeat blood cultures x2. The patient's procalcitonin was elevated at 0.6 and is down 0.32. We will check on the repeat blood cultures and make further recommendations. Long-term prognosis is poor. Salomón Arroyo MD
--- NOTE | 2017-04-23 19:34 | US ---
EXAM: US Scrotum EXAM DATE/TIME: 04/23/2017 7:58 AM CLINICAL HISTORY: 52 years old, male; Pain; Scrotum pain; Additional info: Evaluation of testicular cyst TECHNIQUE: Real-time ultrasound of the scrotum with color Doppler and image documentation. COMPARISON: No relevant prior studies available. FINDINGS: Right testicle: Parenchyma appears heterogeneous, however, no focal masses are seen. Otherwise within normal limits in appearance. Measures 3.7 x 2.0 x 2.8 cm. Flow seen in the right testicle on color and Doppler imaging, with no evidence of torsion. Right epididymis: Contains 2 round lesions, located in the epididymal head. The larger lesion measures 7 x 6 mm, is hypoechoic, and most likely represents a complex cyst. There is no significant associated flow/vascularity on color imaging. The second lesion measures 5 mm maximally, and is most compatible with a simple cyst. Otherwise within normal limits in appearance. Epididymal head measures 1.5 x 1.2 cm. Left testicle: Parenchyma appears heterogeneous, however, no focal masses are seen.A 3 mm rounded, echogenic focus is seen in the lower pole of the left testis peripherally, near the tunica vaginalis, consistent with a calcification. This is most likely a scrotal sheree, an incidental finding, usually related to an episode of prior inflammation or prior torsion of an epididymal appendage. Otherwise unremarkable in appearance. Measures 3.8 x 2.3 x 2.7 cm. Flow seen in the left testicle on color and Doppler imaging, with no evidence of torsion. Left epididymis: Contains a 3.3 mm cyst, located in the epididymal head. Otherwise within normal limits in appearance. Head measures 7.6 x 7 mm maximally.. Hydrocoele: Small left hydrocele is seen. Varicocele: Left-sided varicocele is noted. IMPRESSION: No evidence of testicular torsion, epididymitis or other significant acute abnormality. Small left hydrocele. Left-sided varicocele. Bilateral epididymal cysts. 3 mm left testicular calcification, most likely an incidental scrotal sheree. See above for remaining findings.
[2017-04-24] MEDS: Dexmedetomidine HCl 4mcg/ml 400 MCG/100 ML BOTTLE IV PRN ×3 (00:09→10:10)
[2017-04-24] MEDS: Sodium Chloride 0.9% 1,000 ML IV SCH (04:20)
[2017-04-24] MEDS ORDERED: Acetaminophen 650mg/20.3ml solution UD PO ONE (05:08)
--- NOTE | 2017-04-24 05:25 | CON ---
CARDIOLOGY CONSULTATION DATE: REASON FOR CONSULTATION: Acute CVA. HISTORY OF PRESENT ILLNESS: The patient is a 52-year-old male who has history of hypertension, alcohol abuse, opiate abuse, who was recently treated at [facility] for stroke that affected his speech. He refused to go to rehab and went home and from home he was working because of unresponsiveness. The patient according to the sister was methadone or OxyContin. A brain MRI was consistent with multiple foci of within the left frontal, parietal and occipital white matter consistent with acute ischemic changes. Embolic disease was considered. Also mild was visualized within the left basal ganglia and left temporal lobe consistent with [id number] ischemic changes. CT angio of the head and neck was consistent with complete occlusion of the left anterior carotid artery at its origin. According to the family, the patient has no known prior cardiac history. MEDICATIONS: Aspirin 81 mg once a day, intravenous Cardene, doxycycline 100 mg intravenous q. 12 hours, folic acid 1 mg daily, Lipitor 20 mg daily, Maxipime 1 g intravenously q. 12 hours, Precedex infusion, normal saline at 10 mL an hour, Protonix 40 mg at 10 mL daily, thiamine 50 mg once a day. PHYSICAL EXAMINATION GENERAL: The patient is middle-aged male who is poorly responsive. VITAL SIGNS: Blood pressure 171/97, heart rate 79, temperature 99.2 and respirations 18. HEENT: No pallor or icterus. NECK: No JVD. CHEST: Diminished breath sounds bilaterally. HEART: S1 and S2 regular. EXTREMITIES: Trace edema. LABORATORY DATA: Today, CBC is entirely within normal limits. SMA-7 is within normal limit except for glucose 122. Magnesium is normal at 1.5. Triglycerides are elevated at 190 and HDL cholesterol was below normal at 25. PT and INR are within normal limits. Hepatitis profile is negative. Urine drug screen is positive for benzodiazepine and methadone on admission. ASSESSMENT: 1. Multiple left hemispheric stroke mostly likely embolic. 2. 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 3. Opiate abuse. CONDITIONS: Continue current aspirin 81 mg once a day, Lipitor 20 mg once a day, thiamine 100 mg once a day. I would review the echo cardiac study that was performed today. Consider anticoagulation, if clears from the Neurological point of view. The patient did receive IV magnesium sulfate replacement for his hypomagnesemia today. Fuad Fuentes MD
[2017-04-24 06:56] LABS: ARTERIAL BLOOD GAS HCO3 24.9 mmol/L (21-28); ARTERIAL BLOOD GAS PH 7.36 (7.35-7.45)
[2017-04-24 07:14] LABS: HEMATOCRIT 47.3 % (42.0-52.0); MEAN CELL VOLUME 99.2 fl (80.0-105.0); MEAN CORPUSCULAR HEMOGLOBIN 33.5 pg (25.0-35.0); MEAN CORPUSCULAR HGB CONC 33.8 g/dl (31.0-37.0); MEAN PLATELET VOLUME 11.1 fl (7.0-11.0); RED CELL DISTRIBUTION WIDTH 11.9 % (11.5-14.5); WHITE BLOOD COUNT 7.6 10^3/ul (4.5-11.0)
[2017-04-24 07:25] LABS: ALKALINE PHOSPHATASE 136 U/L (38-126); ALT/SGPT 23 U/L (7-56); AST/SGOT 46 U/L (17-59); BILIRUBIN,TOTAL 1.3 mg/dL (0.2-1.3); BLOOD UREA NITROGEN 14 mg/dL (7-21); CALCIUM 9.2 mg/dL (8.4-10.5); CARBON DIOXIDE 27 mmol/L (21-33); CHLORIDE 103 mmol/L (98-107); GFR AFRICAN-AMERICAN > 60; GLUCOSE,RANDOM 123 mg/dL (70-110); MAGNESIUM 1.6 mg/dL (1.7-2.2); PHOSPHOROUS 4.2 mg/dL (2.5-4.5); POTASSIUM 3.6 mmol/L (3.6-5.0); SODIUM 143 mmol/L (132-148); TOTAL PROTEIN 7.6 g/dL (5.8-8.3)
[2017-04-24] MEDS ORDERED: Magnesium Sulfate 1 gm in D5W 1 GM/100 ML BAG IVPB ONE (07:51)
--- NOTE | 2017-04-24 09:16 | CARD ---
APPROVED REPORT EXAM: Two-dimensional and M-mode echocardiogram with Doppler and color Doppler. Other Information Quality : PoorRhythm : INDICATION CVA/TIA 2D DIMENSIONS Left Atrium (2D)3.7 (1.6-4.0cm) Aortic Valve AoV Peak Jpbqtfhw517.0cm/Inocencia Peak GR.8mmHg Mitral Valve MV E Rjpjszrz35.5cm/sMV A Esbojjnr33.2cm/sE/A ratio0.6 TDI E/Lateral E'0.0E/Medial E'0.0 Tricuspid Valve TR Peak Bevjrxks729kn/sRAP [id number] Peak Gr.9mmHg [id number] LEFT VENTRICLE The left ventricle is normal size. There is normal left ventricular wall thickness. The left ventricular function is normal. The left ventricular ejection fraction is within the normal range. There is normal LV segmental wall motion. RIGHT VENTRICLE The right ventricle is normal size. ATRIA The left atrium size is normal. The right atrium size is normal. AORTIC VALVE The aortic valve is mildly calcified. MITRAL VALVE The mitral valve is thickened but opens well. TRICUSPID VALVE The tricuspid valve is not well visualized. There is trace tricuspid regurgitation. PULMONIC VALVE The pulmonic valve is not well visualized. GREAT VESSELS The aortic root is normal in size. PERICARDIAL EFFUSION There is no pericardial effusion. <Conclusion> This is a limited study done in the CCU on supine patient. The left ventricle is normal size. There is normal left ventricular wall thickness. The left ventricular function is normal. The aortic valve is mildly calcified. The mitral valve is thickened but opens well. The tricuspid valve is not well visualized. There is trace tricuspid regurgitation.
[2017-04-24] MEDS: Cefepime 1gm in NS 100ml 1 GM/100 ML BAG IVPB SCH (09:27)
[2017-04-24] MEDS: Chlorhexidine 0.12% Oral Sol 480 ml Bot PO SCH ×2 (09:28→17:26)
--- NOTE | 2017-04-24 10:56 | RAD ---
HISTORY: clinical evaluation of PNA COMPARISON: 04/23/2017 FINDINGS: LUNGS: There is a left inferior perihilar infiltrate. This has increased. PLEURA: No significant pleural effusion identified, no pneumothorax apparent. CARDIOVASCULAR: Normal. OSSEOUS STRUCTURES: No significant abnormalities. VISUALIZED UPPER ABDOMEN: Normal. OTHER FINDINGS: None. IMPRESSION: Left lower lobe perihilar infiltrate
--- NOTE | 2017-04-24 11:19 | CP.CCUPN ---
<Santiago Chapman - Last Filed: 04/24/17 11:20> CCU Subjective - Physician Review Subjective (Free Text): 04/24/17 11:16 Patient s/e in ICU this AM. Pt remains on precedex sedation this AM. Patient has proven to be combative when precedex has been weened. Patient VSS and will plan to wean off precedex today and start seroquel. NO acute events were reported overnight. CCU Objective - Vital Signs / Intake & Output Intake and Output (Last 8hrs): Intake & Output 04/23/17 04/24/17 04/24/17 22:59 06:59 14:59 Intake Total 2650 2164 311 Output Total 600 1750 Balance 2049 414 311 Weight 198 lb Intake: IV 2049 1664 311 N/S 1200 1000 meds 450 200 precedex 300 264 Tube Feeding 600 300 Other 200 Output: Urine 600 1750 Urethral (Decker) 600 1750 Other: # Bowel Movements 0 0 - Physical Exam Head: Positive for: Atraumatic, Normocephalic Pupils: Positive for: Other (Pupils dilated but reactive) Extroacular Muscles: Positive for: EOMI Conjunctiva: Positive for: Normal Ears: Positive for: NORMAL TM Mouth: Positive for: Dry Neck: Positive for: Normal Range of Motion Respiratory/Chest: Positive for: Good Air Exchange, Rales (improving, right sided ). Negative for: Respiratory Distress, Accessory Muscle Use, Wheezes Cardiovascular: Positive for: Regular Rate and Rhythm, Normal S1, S2. Negative for: Murmurs Abdomen: Positive for: Normal Bowel Sounds. Negative for: Tenderness, Distention, Peritoneal Signs Genitourinary Male: Positive for: Other (decker catheter in place) Upper Extremity: Negative for: Cyanosis, Edema Lower Extremity: Positive for: Edema, Neurovascularly Intact Neurological: Positive for: CN II-XII Intact, Other (Right sided hemiparesis, left sided spontanous movement,toe on right side flaccid and upgoing, left toes downgoing, withdaws to localized pain stimulus, DTRs 1+) Skin: Positive for: Warm, Dry, Normal Color. Negative for: Rashes Psychiatric: Positive for: Other (sedated) - Medications Active Medications: Active Medications Generic Name Dose Route Start Last Admin Trade Name Freq PRN Reason Stop Dose Admin Aspirin 81 mg 04/24/17 10:00 04/24/17 09:26 Aspirin Chewable PO 81 mg DAILY CATHERINE Administration Atorvastatin Calcium 20 mg 04/23/17 17:00 04/23/17 17:10 Lipitor PO 20 mg DIN CATHERINE Administration Chlorhexidine Gluconate 15 ml 04/20/17 18:00 04/24/17 09:28 Peridex PO 15 ml BID CATHERINE Administration Folic Acid 1 mg 04/22/17 10:00 04/24/17 09:27 Folic Acid PO 1 mg DAILY CATHERINE Administration Propofol 1,000 mg in 100 mls @ 2.722 mls/hr 04/20/17 00:58 04/22/17 09:26 Diprivan IV Infused .Q24H PRN Titration TITRATE PER MD ORDER Protocol 5 MCG/KG/MIN Sodium Chloride 1,000 mls @ 100 mls/hr 04/20/17 02:30 04/24/17 04:20 Sodium Chloride 0.9% IV 100 mls/hr .Q10H CATHERINE Administration Doxycycline Hyclate 100 mg/ 100 mls @ 100 mls/hr 04/21/17 10:30 04/24/17 09: 26 Sodium Chloride IVPB 100 mls/hr Q12 CATHERINE Administration Protocol Cefepime HCl 1 gm in 100 mls @ 100 mls/hr 04/21/17 10:30 04/24/17 09:27 Maxipime 1gm IVPB 100 mls/hr Q12 CATHERINE Administration Protocol Dexmedetomidine HCl 400 mcg in 100 mls @ 4.454 mls/hr 04/22/17 11:20 10:35 Precedex 4 Mcg/Ml (100 Ml) IV 0.25 mcg/kg/hr .[id number] PRN 5.568 mls/hr Sedation Titration Protocol 0.2 MCG/KG/HR Nicardipine HCl 20 mg in 200 mls @ 50 mls/hr 04/22/17 16:13 04/24/17 10:01 Cardene Iv Premix IV Infused .Q4H PRN Titration TITRATE PER MD ORDER Protocol 5 MG/HR Potassium Chloride 10 meq in 100 mls @ 100 mls/hr 04/24/17 11:13 Potassium Chloride 10 Meq/100 Ml IVPB 04/24/17 12:12 ONCE ONE Pantoprazole Sodium 40 mg 04/20/17 10:00 04/24/17 09:26 Protonix Inj IVP 40 mg DAILY CATHERINE Administration Quetiapine Fumarate 12.5 mg 04/24/17 15:00 Seroquel PO BID [facility] Protocol Thiamine HCl 50 mg 04/22/17 10:00 04/24/17 09:27 Vitamin B1 Tab PO 50 mg DAILY CATHERINE Administration - Patient Studies Lab Studies: Microbiology Studies 04/23/17 06:10 Blood Culture - Preliminary Blood-Venous NO GROWTH AFTER 24 HOURS 04/23/17 05:50 Blood Culture - Preliminary Blood-Venous NO GROWTH AFTER 24 HOURS Lab Studies 04/24/17 04/24/17 04/24/17 Range/Units 06:13 05:30 05:30 WBC 7.6 (4.5-11.0) 10^3/ul RBC 4.77 (3.5-6.1) 10^6/uL Hgb 16.0 (14.0-18.0) g/dL Hct 47.3 (42.0-52.0) % MCV 99.2 (80.0-105.0) fl MCH 33.5 (25.0-35.0) pg MCHC 33.8 (31.0-37.0) g/dl RDW 11.9 (11.5-14.5) % Plt Count 183 (120.0-450.0) 10^3/uL MPV 11.1 H (7.0-11.0) fl pCO2 (35-45) mm/Hg pO2 (80-100) mm/Hg HCO3 (21-28) mmol/L ABG pH (7.35-7.45) ABG Total CO2 (22-28) mmol.L ABG O2 Saturation (95-98) % ABG Base Excess (-2.0-3.0) mmol/L ABG Potassium (3.6-5.2) mmol/L Sodium 143 (132-148) mmol/L Chloride 103 (98-107) mmol/L Glucose (75-110) mg/dl Lactate (0.7-2.1) mmol/L FiO2 % Potassium 3.6 (3.6-5.0) mmol/L Carbon Dioxide 27 (21-33) mmol/L Anion Gap 17 (10-20) BUN 14 (7-21) mg/dL Creatinine 0.7 L (0.8-1.5) mg/dL Est GFR ( Amer) > 60 Est GFR (Non-Af Amer) > 60 POC Glucose (mg/dL) 120 H (65-110) mg/dL Random Glucose 123 H (70-110) mg/dL Calcium 9.2 (8.4-10.5) mg/dL Phosphorus 4.2 (2.5-4.5) mg/dL Magnesium 1.6 L (1.7-2.2) mg/dL Total Bilirubin 1.3 (0.2-1.3) mg/dL AST 46 (17-59) U/L ALT 23 (7-56) U/L Alkaline Phosphatase 136 H (38-126) U/L Total Protein 7.6 (5.8-8.3) g/dL Albumin 3.8 (3.0-4.8) g/dL Globulin 3.8 gm/dL Albumin/Globulin Ratio 1.0 L (1.1-1.8) Triglycerides (35-160) mg/dL Cholesterol (130-200) mg/dL LDL Cholesterol Direct (0-129) mg/dL HDL Cholesterol (29-60) mg/dL Arterial Blood Potassium (3.6-5.2) mmol/L Pneumocystis Source S. pneumoniae Antigen 04/24/17 04/24/17 04/23/17 Range/Units 05:00 00:32 18:44 WBC (4.5-11.0) 10^3/ul RBC (3.5-6.1) 10^6/uL Hgb (14.0-18.0) g/dL Hct (42.0-52.0) % MCV (80.0-105.0) fl MCH (25.0-35.0) pg MCHC (31.0-37.0) g/dl RDW (11.5-14.5) % Plt Count (120.0-450.0) 10^3/uL MPV (7.0-11.0) fl pCO2 44 (35-45) mm/Hg pO2 80.0 (80-100) mm/Hg HCO3 24.9 (21-28) mmol/L ABG pH 7.36 (7.35-7.45) ABG Total CO2 26.3 (22-28) mmol.L ABG O2 Saturation 97.2 (95-98) % ABG Base Excess -0.8 (-2.0-3.0) mmol/L ABG Potassium 2.7 L (3.6-5.2) mmol/L Sodium 144.0 (132-148) mmol/L Chloride 110.0 H (98-107) mmol/L Glucose 110 (75-110) mg/dl Lactate 0.7 (0.7-2.1) mmol/L FiO2 32.0 % Potassium (3.6-5.0) mmol/L Carbon Dioxide (21-33) mmol/L Anion Gap (10-20) BUN (7-21) mg/dL Creatinine (0.8-1.5) mg/dL Est GFR ( Amer) Est GFR (Non-Af Amer) POC Glucose (mg/dL) 113 H 101 (65-110) mg/dL Random Glucose (70-110) mg/dL Calcium (8.4-10.5) mg/dL Phosphorus (2.5-4.5) mg/dL Magnesium (1.7-2.2) mg/dL Total Bilirubin (0.2-1.3) mg/dL AST (17-59) U/L ALT (7-56) U/L Alkaline Phosphatase (38-126) U/L Total Protein (5.8-8.3) g/dL Albumin (3.0-4.8) g/dL Globulin gm/dL Albumin/Globulin Ratio (1.1-1.8) Triglycerides (35-160) mg/dL Cholesterol (130-200) mg/dL LDL Cholesterol Direct (0-129) mg/dL HDL Cholesterol (29-60) mg/dL Arterial Blood Potassium 2.7 L (3.6-5.2) mmol/L Pneumocystis Source S. pneumoniae Antigen 04/23/17 04/23/17 04/21/17 Range/Units 11:41 05:20 11:26 WBC (4.5-11.0) 10^3/ul RBC (3.5-6.1) 10^6/uL Hgb (14.0-18.0) g/dL Hct (42.0-52.0) % MCV (80.0-105.0) fl MCH (25.0-35.0) pg MCHC (31.0-37.0) g/dl RDW (11.5-14.5) % Plt Count (120.0-450.0) 10^3/uL MPV (7.0-11.0) fl pCO2 (35-45) mm/Hg pO2 (80-100) mm/Hg HCO3 (21-28) mmol/L ABG pH (7.35-7.45) ABG Total CO2 (22-28) mmol.L ABG O2 Saturation (95-98) % ABG Base Excess (-2.0-3.0) mmol/L ABG Potassium (3.6-5.2) mmol/L Sodium (132-148) mmol/L Chloride (98-107) mmol/L Glucose (75-110) mg/dl Lactate (0.7-2.1) mmol/L FiO2 % Potassium (3.6-5.0) mmol/L Carbon Dioxide (21-33) mmol/L Anion Gap (10-20) BUN (7-21) mg/dL Creatinine (0.8-1.5) mg/dL Est GFR ( Amer) Est GFR (Non-Af Amer) POC Glucose (mg/dL) 106 (65-110) mg/dL Random Glucose (70-110) mg/dL Calcium (8.4-10.5) mg/dL Phosphorus (2.5-4.5) mg/dL Magnesium (1.7-2.2) mg/dL Total Bilirubin (0.2-1.3) mg/dL AST (17-59) U/L ALT (7-56) U/L Alkaline Phosphatase (38-126) U/L Total Protein (5.8-8.3) g/dL Albumin (3.0-4.8) g/dL Globulin gm/dL Albumin/Globulin Ratio (1.1-1.8) Triglycerides 190 H (35-160) mg/dL Cholesterol 150 (130-200) mg/dL LDL Cholesterol Direct 99 (0-129) mg/dL HDL Cholesterol 25 L (29-60) mg/dL Arterial Blood Potassium (3.6-5.2) mmol/L Pneumocystis Source Serum S. pneumoniae Antigen Not detected Laboratory Results - last 24 hr 04/21/17 04/23/17 04/23/17 11:26 05:20 11:41 WBC RBC Hgb Hct MCV MCH MCHC RDW Plt Count MPV pCO2 pO2 HCO3 ABG pH ABG Total CO2 ABG O2 Saturation ABG Base Excess ABG Potassium Sodium Chloride Glucose Lactate FiO2 Potassium Carbon Dioxide Anion Gap BUN Creatinine Est GFR ( Amer) Est GFR (Non-Af Amer) POC Glucose (mg/dL) 106 Random Glucose Calcium Phosphorus Magnesium Total Bilirubin AST ALT Alkaline Phosphatase Total Protein Albumin Globulin Albumin/Globulin Ratio Triglycerides 190 H Cholesterol 150 LDL Cholesterol Direct 99 HDL Cholesterol 25 L Arterial Blood Potassium Pneumocystis Source Serum S. pneumoniae Antigen Not detected 04/23/17 04/24/17 04/24/17 18:44 00:32 05:00 WBC RBC Hgb Hct MCV MCH MCHC RDW Plt Count MPV pCO2 44 pO2 80.0 HCO3 24.9 ABG pH 7.36 ABG Total CO2 26.3 ABG O2 Saturation 97.2 ABG Base Excess -0.8 ABG Potassium 2.7 L Sodium 144.0 Chloride 110.0 H Glucose 110 Lactate 0.7 FiO2 32.0 Potassium Carbon Dioxide Anion Gap BUN Creatinine Est GFR ( Amer) Est GFR (Non-Af Amer) POC Glucose (mg/dL) 101 113 H Random Glucose Calcium Phosphorus Magnesium Total Bilirubin AST ALT Alkaline Phosphatase Total Protein Albumin Globulin Albumin/Globulin Ratio Triglycerides Cholesterol LDL Cholesterol Direct HDL Cholesterol Arterial Blood Potassium 2.7 L Pneumocystis Source S. pneumoniae Antigen 04/24/17 04/24/17 04/24/17 05:30 05:30 06:13 WBC 7.6 RBC 4.77 Hgb 16.0 Hct 47.3 MCV 99.2 MCH 33.5 MCHC 33.8 RDW 11.9 Plt Count 183 MPV 11.1 H pCO2 pO2 HCO3 ABG pH ABG Total CO2 ABG O2 Saturation ABG Base Excess ABG Potassium Sodium 143 Chloride 103 Glucose Lactate FiO2 Potassium 3.6 Carbon Dioxide 27 Anion Gap 17 BUN 14 Creatinine 0.7 L Est GFR ( Amer) > 60 Est GFR (Non-Af Amer) > 60 POC Glucose (mg/dL) 120 H Random Glucose 123 H Calcium 9.2 Phosphorus 4.2 Magnesium 1.6 L Total Bilirubin 1.3 AST 46 ALT 23 Alkaline Phosphatase 136 H Total Protein 7.6 Albumin 3.8 Globulin 3.8 Albumin/Globulin Ratio 1.0 L Triglycerides Cholesterol LDL Cholesterol Direct HDL Cholesterol Arterial Blood Potassium Pneumocystis Source S. pneumoniae Antigen Fingerstick Blood Sugar Results: 120 Review of Systems - Review of Systems Review of Systems: 12 point ROS limited due to sedation on precedex Assessment/Plan - Assessment and Plan (Free Text) Assessment: 52 year old male with PMH of opiate abuse, hx of heroin abuse, HTN, polycythemia vera and recent admission to [facility] for ischemic stroke involving Left MCA superior division and evidence of left internal carotid artery occlusion of 100% who was discharged to home on 04/17. Patient was found unresponsive by family after suspected overdose of methadone on 04/19 who was brought to [facility] and found to be in acute respiratory failure requiring intubation. Patient noted to have right sided hemiparesis and went for Head CT and CTA of head and neck yesterday. Suspicion of SAH vs hemorraghic stroke was raised, f/u MRI of head showed multiplle areas of foci of restricted diffusion within left frontal, parietal, and occipital white matter consistent with acute ischemic change Plan: 52 year old male with PMH of opiate abuse, hx of heroin abuse, HTN, polycythemia vera and recent admission to [facility] for ischemic stroke involving Left MCA superior division and evidence of left internal carotid artery occlusion of 100% who was discharged to home on 04/17. Patient was found unresponsive by family after suspected overdose of methadone on 04/19 who was brought to [facility] and found to be in acute respiratory failure requiring intubation. Patient noted to have right sided hemiparesis and went for Head CT and CTA of head and neck yesterday. Suspicion of SAH vs hemorrhagic stroke was raised, f/u MRI of head showed multiple areas of foci of restricted diffusion within left frontal, parietal, and occipital white matter consistent with acute ischemic change Plan: Neuro: Acute Ischemic stroke 2/2 suspected showering of emboli from 100% occluded Left internal carotid artery - Head CT, CTA of head and neck notable for 100% occlusion of L internal carotid artery, SAH vs. acute ischemic stroke - MRI showing multiple foci of poor perfusion in left parietal, occipital left frontal white matter along with additional small foci of acute or subacute ischemia visualized in right frontal white matter. See report for full details. - Review of records from [place] for admission from 04/08 to 04/17 report patient had CTA of head and neck showing Left internal carotid artery 100% occluded, possible acute thrombus of Left MCA superior portion, with no intervention preformed - Head CT on admission to [facility]04/20) showing no signs of acute intracranial hemorrhage, infarct, or intracranial hemorrhage - Will order echocardiogram for possible source of emboli - Speech, PT, OT - Neurology has been consulted and appreciate recs - place patient on asa, plavix, will plan to start coumadin 5mg tomorrow Iniital presentation of AMS 2/2 overdose vs. possible stroke - Patient was sedated and ventilated, now extubated and on RA - UDS showing positive barbs and benzo Pulm: Respiratory Failure requiring intubation - resolved - extubated and O2 sat appropriate Right sided Lower lobe pneumonia - CXR continued to show diffuse infiltrate but study poor due to rotation - Patient currently on Doxycycline, cefepime - ID consulted and following, appreciate recs CV: HTN Goal of SBP 120-130 - Carizem gtt stopped, transitioned to oral meds EKG on admission showing sinus tachycardia - Repeat EKG today, check for QTc Echocardiogram for possible embolic source considering hx of IV heroin abuse - awaiting final read GI: stable - Protonix IVPB - Stopped tube feeds, NPO for now, awaiting speech and swallow eval Renal: - BUN/Cr: 14/0.7 - UOP good, continue to monitor - Monitor and replace electrolytes as necessary - replaced K and Mg today Heme: Hx of polycythemia vera (JAK2 mutation negative) H/H of 16/47.3 Stable, continue to monitor ID: Possible Right sided PNA 2/2 aspiration - Doxycycline, cefepime - Urine culture negative - Blood clx is positive for Gram positive cocci, coag neg - Consider vancomycin vs. naficillin - ID consulted and following Psych: Hx of Heroin abuse on methadone 60mg maintenance therapy Patient suspected to have taken excess methadone prior to presentation Psych consult appreciate recs GI ppx: Protonix DVT ppx: Heparin SC Dispo: Patient continues to require precedex for agitation, will plan to titrate off for further evaluation and management Case and plan discussed with attending, Dr. Shin - Date & Time Date: 04/24/17 Time: 11:22 <Gavin Shin - Last Filed: 04/24/17 12:15> CCU Objective - Vital Signs / Intake & Output Intake and Output (Last 8hrs): Intake & Output 04/23/17 04/24/17 04/24/17 22:59 06:59 14:59 Intake Total 2650 2164 325 Output Total 600 1750 Balance 2049 414 325 Weight 198 lb Intake: IV 2049 1664 325 N/S 1200 1000 meds 450 200 precedex 300 264 Tube Feeding 600 300 Other 200 Output: Urine 600 1750 Urethral (Decker) 600 1750 Other: # Bowel Movements 0 0 - Medications Active Medications: Active Medications Generic Name Dose Route Start Last Admin Trade Name Freq PRN Reason Stop Dose Admin Aspirin 81 mg 04/24/17 10:00 04/24/17 09:26 Aspirin Chewable PO 81 mg DAILY CATHERINE Administration Atorvastatin Calcium 20 mg 04/23/17 17:00 04/23/17 17:10 Lipitor PO 20 mg DIN CATHERINE Administration Chlorhexidine Gluconate 15 ml 04/20/17 18:00 04/24/17 09:28 Peridex PO 15 ml BID CATHERINE Administration Clopidogrel Bisulfate 75 mg 04/24/17 11:45 Plavix PO DAILY CATHERINE Folic Acid 1 mg 04/22/17 10:00 04/24/17 09:27 Folic Acid PO 1 mg DAILY CATHERINE Administration Heparin Sodium (Porcine) 5,000 units 04/24/17 11:45 Heparin SC 04/25/17 11:45 Q12 CATHERINE Protocol Propofol 1,000 mg in 100 mls @ 2.722 mls/hr 04/20/17 00:58 04/22/17 09:26 Diprivan IV Infused .Q24H PRN Titration TITRATE PER MD ORDER Protocol 5 MCG/KG/MIN Sodium Chloride 1,000 mls @ 100 mls/hr 04/20/17 02:30 04/24/17 04:20 Sodium Chloride 0.9% IV 100 mls/hr .Q10H CATHERINE Administration Doxycycline Hyclate 100 mg/ 100 mls @ 100 mls/hr 04/21/17 10:30 04/24/17 09: 26 Sodium Chloride IVPB 100 mls/hr Q12 CATHERINE Administration Protocol Cefepime HCl 1 gm in 100 mls @ 100 mls/hr 04/21/17 10:30 04/24/17 09:27 Maxipime 1gm IVPB 100 mls/hr Q12 CATHERINE Administration Protocol Dexmedetomidine HCl 400 mcg in 100 mls @ 4.454 mls/hr 04/22/17 11:20 11:59 Precedex 4 Mcg/Ml (100 Ml) IV 0 mcg/kg/hr .[id number] PRN 0 mls/hr Sedation Titration Protocol 0.2 MCG/KG/HR Nicardipine HCl 20 mg in 200 mls @ 50 mls/hr 04/22/17 16:13 04/24/17 10:01 Cardene Iv Premix IV Infused .Q4H PRN Titration TITRATE PER MD ORDER Protocol 5 MG/HR Potassium Chloride 10 meq in 100 mls @ 100 mls/hr 04/24/17 11:13 04/24/17 11: 31 Potassium Chloride 10 Meq/100 Ml IVPB 04/24/17 12:12 100 mls/hr ONCE ONE Administration Pantoprazole Sodium 40 mg 04/20/17 10:00 04/24/17 09:26 Protonix Inj IVP 40 mg DAILY CATHERINE Administration Quetiapine Fumarate 12.5 mg 04/24/17 11:20 04/24/17 11:31 Seroquel PO 12.5 mg BID CATHERINE Administration Protocol Thiamine HCl 50 mg 04/22/17 10:00 04/24/17 09:27 Vitamin B1 Tab PO 50 mg DAILY CATHERINE Administration Warfarin Sodium 5 mg 04/25/17 18:00 Coumadin PO 1800 [facility] Protocol - Patient Studies Lab Studies: Microbiology Studies 04/23/17 06:10 Blood Culture - Preliminary Blood-Venous NO GROWTH AFTER 24 HOURS 04/23/17 05:50 Blood Culture - Preliminary Blood-Venous NO GROWTH AFTER 24 HOURS Lab Studies 04/24/17 04/24/17 04/24/17 Range/Units 06:13 05:30 05:30 WBC 7.6 (4.5-11.0) 10^3/ul RBC 4.77 (3.5-6.1) 10^6/uL Hgb 16.0 (14.0-18.0) g/dL Hct 47.3 (42.0-52.0) % MCV 99.2 (80.0-105.0) fl MCH 33.5 (25.0-35.0) pg MCHC 33.8 (31.0-37.0) g/dl RDW 11.9 (11.5-14.5) % Plt Count 183 (120.0-450.0) 10^3/uL MPV 11.1 H (7.0-11.0) fl pCO2 (35-45) mm/Hg pO2 (80-100) mm/Hg HCO3 (21-28) mmol/L ABG pH (7.35-7.45) ABG Total CO2 (22-28) mmol.L ABG O2 Saturation (95-98) % ABG Base Excess (-2.0-3.0) mmol/L ABG Potassium (3.6-5.2) mmol/L Sodium 143 (132-148) mmol/L Chloride 103 (98-107) mmol/L Glucose (75-110) mg/dl Lactate (0.7-2.1) mmol/L FiO2 % Potassium 3.6 (3.6-5.0) mmol/L Carbon Dioxide 27 (21-33) mmol/L Anion Gap 17 (10-20) BUN 14 (7-21) mg/dL Creatinine 0.7 L (0.8-1.5) mg/dL Est GFR ( Amer) > 60 Est GFR (Non-Af Amer) > 60 POC Glucose (mg/dL) 120 H (65-110) mg/dL Random Glucose 123 H (70-110) mg/dL Calcium 9.2 (8.4-10.5) mg/dL Phosphorus 4.2 (2.5-4.5) mg/dL Magnesium 1.6 L (1.7-2.2) mg/dL Total Bilirubin 1.3 (0.2-1.3) mg/dL AST 46 (17-59) U/L ALT 23 (7-56) U/L Alkaline Phosphatase 136 H (38-126) U/L Total Protein 7.6 (5.8-8.3) g/dL Albumin 3.8 (3.0-4.8) g/dL Globulin 3.8 gm/dL Albumin/Globulin Ratio 1.0 L (1.1-1.8) Triglycerides (35-160) mg/dL Cholesterol (130-200) mg/dL LDL Cholesterol Direct (0-129) mg/dL HDL Cholesterol (29-60) mg/dL Arterial Blood Potassium (3.6-5.2) mmol/L Pneumocystis Source S. pneumoniae Antigen 04/24/17 04/24/17 04/23/17 Range/Units 05:00 00:32 18:44 WBC (4.5-11.0) 10^3/ul RBC (3.5-6.1) 10^6/uL Hgb (14.0-18.0) g/dL Hct (42.0-52.0) % MCV (80.0-105.0) fl MCH (25.0-35.0) pg MCHC (31.0-37.0) g/dl RDW (11.5-14.5) % Plt Count (120.0-450.0) 10^3/uL MPV (7.0-11.0) fl pCO2 44 (35-45) mm/Hg pO2 80.0 (80-100) mm/Hg HCO3 24.9 (21-28) mmol/L ABG pH 7.36 (7.35-7.45) ABG Total CO2 26.3 (22-28) mmol.L ABG O2 Saturation 97.2 (95-98) % ABG Base Excess -0.8 (-2.0-3.0) mmol/L ABG Potassium 2.7 L (3.6-5.2) mmol/L Sodium 144.0 (132-148) mmol/L Chloride 110.0 H (98-107) mmol/L Glucose 110 (75-110) mg/dl Lactate 0.7 (0.7-2.1) mmol/L FiO2 32.0 % Potassium (3.6-5.0) mmol/L Carbon Dioxide (21-33) mmol/L Anion Gap (10-20) BUN (7-21) mg/dL Creatinine (0.8-1.5) mg/dL Est GFR ( Amer) Est GFR (Non-Af Amer) POC Glucose (mg/dL) 113 H 101 (65-110) mg/dL Random Glucose (70-110) mg/dL Calcium (8.4-10.5) mg/dL Phosphorus (2.5-4.5) mg/dL Magnesium (1.7-2.2) mg/dL Total Bilirubin (0.2-1.3) mg/dL AST (17-59) U/L ALT (7-56) U/L Alkaline Phosphatase (38-126) U/L Total Protein (5.8-8.3) g/dL Albumin (3.0-4.8) g/dL Globulin gm/dL Albumin/Globulin Ratio (1.1-1.8) Triglycerides (35-160) mg/dL Cholesterol (130-200) mg/dL LDL Cholesterol Direct (0-129) mg/dL HDL Cholesterol (29-60) mg/dL Arterial Blood Potassium 2.7 L (3.6-5.2) mmol/L Pneumocystis Source S. pneumoniae Antigen 04/23/17 04/23/17 04/21/17 Range/Units 11:41 05:20 11:26 WBC (4.5-11.0) 10^3/ul RBC (3.5-6.1) 10^6/uL Hgb (14.0-18.0) g/dL Hct (42.0-52.0) % MCV (80.0-105.0) fl MCH (25.0-35.0) pg MCHC (31.0-37.0) g/dl RDW (11.5-14.5) % Plt Count (120.0-450.0) 10^3/uL MPV (7.0-11.0) fl pCO2 (35-45) mm/Hg pO2 (80-100) mm/Hg HCO3 (21-28) mmol/L ABG pH (7.35-7.45) ABG Total CO2 (22-28) mmol.L ABG O2 Saturation (95-98) % ABG Base Excess (-2.0-3.0) mmol/L ABG Potassium (3.6-5.2) mmol/L Sodium (132-148) mmol/L Chloride (98-107) mmol/L Glucose (75-110) mg/dl Lactate (0.7-2.1) mmol/L FiO2 % Potassium (3.6-5.0) mmol/L Carbon Dioxide (21-33) mmol/L Anion Gap (10-20) BUN (7-21) mg/dL Creatinine (0.8-1.5) mg/dL Est GFR ( Amer) Est GFR (Non-Af Amer) POC Glucose (mg/dL) 106 (65-110) mg/dL Random Glucose (70-110) mg/dL Calcium (8.4-10.5) mg/dL Phosphorus (2.5-4.5) mg/dL Magnesium (1.7-2.2) mg/dL Total Bilirubin (0.2-1.3) mg/dL AST (17-59) U/L ALT (7-56) U/L Alkaline Phosphatase (38-126) U/L Total Protein (5.8-8.3) g/dL Albumin (3.0-4.8) g/dL Globulin gm/dL Albumin/Globulin Ratio (1.1-1.8) Triglycerides 190 H (35-160) mg/dL Cholesterol 150 (130-200) mg/dL LDL Cholesterol Direct 99 (0-129) mg/dL HDL Cholesterol 25 L (29-60) mg/dL Arterial Blood Potassium (3.6-5.2) mmol/L Pneumocystis Source Serum S. pneumoniae Antigen Not detected Laboratory Results - last 24 hr 04/21/17 04/23/17 04/23/17 11:26 05:20 11:41 WBC RBC Hgb Hct MCV MCH MCHC RDW Plt Count MPV pCO2 pO2 HCO3 ABG pH ABG Total CO2 ABG O2 Saturation ABG Base Excess ABG Potassium Sodium Chloride Glucose Lactate FiO2 Potassium Carbon Dioxide Anion Gap BUN Creatinine Est GFR ( Amer) Est GFR (Non-Af Amer) POC Glucose (mg/dL) 106 Random Glucose Calcium Phosphorus Magnesium Total Bilirubin AST ALT Alkaline Phosphatase Total Protein Albumin Globulin Albumin/Globulin Ratio Triglycerides 190 H Cholesterol 150 LDL Cholesterol Direct 99 HDL Cholesterol 25 L Arterial Blood Potassium Pneumocystis Source Serum S. pneumoniae Antigen Not detected 04/23/17 04/24/17 04/24/17 18:44 00:32 05:00 WBC RBC Hgb Hct MCV MCH MCHC RDW Plt Count MPV pCO2 44 pO2 80.0 HCO3 24.9 ABG pH 7.36 ABG Total CO2 26.3 ABG O2 Saturation 97.2 ABG Base Excess -0.8 ABG Potassium 2.7 L Sodium 144.0 Chloride 110.0 H Glucose 110 Lactate 0.7 FiO2 32.0 Potassium Carbon Dioxide Anion Gap BUN Creatinine Est GFR ( Amer) Est GFR (Non-Af Amer) POC Glucose (mg/dL) 101 113 H Random Glucose Calcium Phosphorus Magnesium Total Bilirubin AST ALT Alkaline Phosphatase Total Protein Albumin Globulin Albumin/Globulin Ratio Triglycerides Cholesterol LDL Cholesterol Direct HDL Cholesterol Arterial Blood Potassium 2.7 L Pneumocystis Source S. pneumoniae Antigen 04/24/17 04/24/17 04/24/17 05:30 05:30 06:13 WBC 7.6 RBC 4.77 Hgb 16.0 Hct 47.3 MCV 99.2 MCH 33.5 MCHC 33.8 RDW 11.9 Plt Count 183 MPV 11.1 H pCO2 pO2 HCO3 ABG pH ABG Total CO2 ABG O2 Saturation ABG Base Excess ABG Potassium Sodium 143 Chloride 103 Glucose Lactate FiO2 Potassium 3.6 Carbon Dioxide 27 Anion Gap 17 BUN 14 Creatinine 0.7 L Est GFR ( Amer) > 60 Est GFR (Non-Af Amer) > 60 POC Glucose (mg/dL) 120 H Random Glucose 123 H Calcium 9.2 Phosphorus 4.2 Magnesium 1.6 L Total Bilirubin 1.3 AST 46 ALT 23 Alkaline Phosphatase 136 H Total Protein 7.6 Albumin 3.8 Globulin 3.8 Albumin/Globulin Ratio 1.0 L Triglycerides Cholesterol LDL Cholesterol Direct HDL Cholesterol Arterial Blood Potassium Pneumocystis Source S. pneumoniae Antigen EKG/Cardiology Studies: Cardiology / EKG Studies 04/24/17 12:00 EKG [ELECTROCARDIOGRAM] Routine Comment: Reason For Exam: check QTc Assessment/Plan - Assessment and Plan (Free Text) Plan: Patient seen and examined, with resident, agree with note. 52 year old male with PMH of opiate abuse/heroin abuse, HTN, polycythemia vera and recent admission to [facility] for ischemic stroke involving Left MCA superior division, found unresponsive by family after suspected overdose of methadone on 04/19 who was brought to [facility] and found to be in acute respiratory failure requiring intubation. PAtient now extubated, off precedex, doing well, compliant with with staff, non combative, on Seroquel, (EKG QTc wnl) . Neurology following. CXR with improvement in RLL infiltrate Resp failure, s/p extubation Agitation Hx of Polysubstance abuse Aspiration PNA PV Hx of CVA with L ICA occlusion 100% Recommend: - supp o2 as needed - abx as per ID, Cefepime, Vanco - follow up ID - BP control - DC precedex - Start Seroquel 12.5mg BID - Restart Methadone 60mg daily, home dose - follow up Psych - monitor HH - speech swallow eval - ASA, Plavix, Start Coumadin - GI ppx - PT eval - OOB to chair Critical care time 30 minutes
--- NOTE | 2017-04-24 14:30 | CP.PCM.PN ---
<Cher Cordova - Last Filed: 04/24/17 15:21> Subjective - Date & Time of Evaluation Date of Evaluation: 04/24/17 Time of Evaluation: 14:27 - Subjective Subjective: Hospitalist Service Progress Note: Patient seen and examined at bedside. Per nursing, no acute events overnight. Tmax 101. Patient still on precedex drip. Currently not following commands. Only moving left side of his body. ROS not obtained. Objective - Vital Signs/Intake and Output Vital Signs (last 24 hours): Temp Pulse Resp BP Pulse Ox 98.1 F 65 48 H 124/80 98 04/24/17 12:00 04/24/17 13:50 04/24/17 11:00 04/24/17 13:00 04/24/17 13:50 Intake and Output: 04/24/17 04/24/17 06:59 18:59 Intake Total 2219 325 Output Total 1750 Balance 469 325 - Medications Medications: Current Medications Aspirin (Aspirin Chewable) 81 mg PO DAILY [facility] Last Admin: 04/24/17 09:26 Dose: 81 mg Atorvastatin Calcium (Lipitor) 20 mg PO DIN [facility] Last Admin: 04/23/17 17:10 Dose: 20 mg Chlorhexidine Gluconate (Peridex) 15 ml PO BID [facility] Last Admin: 04/24/17 09:28 Dose: 15 ml Clopidogrel Bisulfate (Plavix) 75 mg PO DAILY [facility] Docusate Sodium (Colace Liquid) 100 mg PO TID [facility] Last Admin: 04/24/17 13:09 Dose: 100 mg Folic Acid (Folic Acid) 1 mg PO DAILY [facility] Last Admin: 04/24/17 09:27 Dose: 1 mg Heparin Sodium (Porcine) (Heparin) 5,000 units SC Q12 [facility] PRN Reason: Protocol Stop: 04/25/17 11:45 Propofol (Diprivan) 1,000 mg in 100 mls @ 2.722 mls/hr IV .Q24H PRN; Protocol; 5 MCG/KG/MIN PRN Reason: TITRATE PER MD ORDER Last Titration: 04/22/17 09:26 Dose: Infused Sodium Chloride (Sodium Chloride 0.9%) 1,000 mls @ 100 mls/hr IV .Q10H [facility] Last Admin: 04/24/17 04:20 Dose: 100 mls/hr Dexmedetomidine HCl (Precedex 4 Mcg/Ml (100 Ml)) 400 mcg in 100 mls @ 4.454 mls /hr IV .[id number] PRN; Protocol; 0.2 MCG/KG/HR PRN Reason: Sedation Last Titration: 04/24/17 11:59 Dose: 0 mcg/kg/hr, 0 mls/hr Nicardipine HCl (Cardene Iv Premix) 20 mg in 200 mls @ 50 mls/hr IV .Q4H PRN; Protocol; 5 MG/HR PRN Reason: TITRATE PER MD ORDER Last Titration: 04/24/17 10:01 Dose: Infused Meropenem 1g/NS 100mL IVPB (Meropenem 1g/Ns 100ml Ivpb) 1 gm in 100 mls @ 100 mls/hr IVPB Q8 [facility] PRN Reason: Protocol Stop: 05/03/17 14:01 Pantoprazole Sodium (Protonix Inj) 40 mg IVP DAILY [facility] Last Admin: 04/24/17 09:26 Dose: 40 mg Quetiapine Fumarate (Seroquel) 12.5 mg PO BID [facility] PRN Reason: Protocol Last Admin: 04/24/17 11:31 Dose: 12.5 mg Thiamine HCl (Vitamin B1 Tab) 50 mg PO DAILY [facility] Last Admin: 04/24/17 09:27 Dose: 50 mg Warfarin Sodium (Coumadin) 5 mg PO 1800 [facility] PRN Reason: Protocol - Labs Labs: 04/24/17 05:30 04/24/17 05:30 PT 11.0 Seconds (9.9-11.8) 04/23/17 05:20 INR 1.02 (0.93-1.08) 04/23/17 05:20 APTT 28.7 Seconds (23.7-30.8) 04/19/17 23:27 - Constitutional Appears: Non-toxic, No Acute Distress - Head Exam Head Exam: ATRAUMATIC, NORMAL INSPECTION - Eye Exam Eye Exam: Normal appearance - ENT Exam ENT Exam: Mucous Membranes Moist - Respiratory Exam Respiratory Exam: Rhonchi, NORMAL BREATHING PATTERN. absent: Rales, Wheezes - Cardiovascular Exam Cardiovascular Exam: REGULAR RHYTHM, +S1, +S2 - GI/Abdominal Exam GI & Abdominal Exam: Soft. absent: Guarding, Rigid, Tenderness, Rebound - Exam Additional comments: + decker in draining urine + testicular cyst - Extremities Exam Additional comments: +SCDs - Back Exam Back Exam: NORMAL INSPECTION - Neurological Exam Neurological Exam: absent: Alert (Sedated, not following commands) - Skin Skin Exam: Normal Color, Warm Assessment and Plan - Assessment and Plan (Free Text) Assessment: 52Y M with PMH polysubstance abuse, HTN, HLD, polycythemia vera who was recently admitted to [facility] for L MCA CVA and L carotid stenosis of 100% who was d/c home on 04/17/17 and found unresponsive as per family. Family suspected overdose on methadone, patient was intubated and sedated. Head CT showed questionable L posterior parietal subarachnoid hemmorhage. MRI of brain showed multifocal acute ischemic changes in L frontal, parietal and occipital matter with subacute ischemia in R frontal lobe, as well as limited diffusion in L basal ganglia and temporal cortex. This MRI findings are consistent with cardioembolic stroke. Plan: 1. Acute CVA, Hx of Ischemic CVA with lesion of left MCA superior division - Patient presented to [facility] on 04/08 with expressive aphasia - Per the family, patient was ambulating after discharge from [place] on 04/17 - CTA Head and Neck showed left internal carotid artery stenosis 100% occlusion at that time - CT 04/22 showed possible subarachnoid hemorrhage with complete L ICA occlusion - MRI showing acute ischemic changes within L frontal, parietal, and occipital lobe, embolic in nature - Echo limited study: LVEF normal, thickened mitral valve, aortic valve calcified - Continue Lipitor 20mg daily - Continue ASA and Plavix - Coumadin to be started tomorrow - Cardiology consulted, f/u recommendations - Neurology consulted, follow up recommendations - Neurosurgery consulted for subarachnoid hemorrhage, imaging reviewed SAH less likely 2. Acute respiratory failure in the setting of severe sepsis 2/2 aspiration pneumonia - Extubated yesterday - Plan to titrate precedex off and start on seroquel - Speech eval/ PT eval/ OT eval - Last temp 101 F this morning - CXR today showing increase in LLL perihilar infiltrate - Currently on Merrem (day 1) - Legionella and s pneumo negative - F/U sputum cx, repeat urine cx, UA, procal - First Blood culture showing no growth, second cx growing gram positive cocci - Repeat Blood cx showing no growth after 24 hours - ID consulted, F/U recommendations 3. Methadone and Opioid abuse - S/P narcan in the field - UTOX positive for benzos and methadone - Hep panel negative - Psych consulted, f/u recommendations 4. Hypertension -Currently on Nicardipine drip 5. Testicular Cyst -US showing small L hydrocele, Left sided varicocele, B/L epididymal cysts and 3mm L testicular calcification 6. Hx of polycythemia vera -Continue to monitor GI/DVT PPX - Protonix - Heparin 5000 U Q12H <Bebe Murrell - Last Filed: 04/25/17 17:28> Objective - Vital Signs/Intake and Output Vital Signs (last 24 hours): Temp Pulse Resp BP Pulse Ox 97 F L 88 19 135/99 H 97 04/25/17 12:00 04/25/17 16:19 04/25/17 12:00 04/25/17 16:19 04/25/17 12:00 Intake and Output: 04/25/17 04/25/17 06:59 18:59 Output Total 800 Balance -800 - Medications Medications: Current Medications Amlodipine Besylate (Norvasc) 5 mg PO DAILY [facility] Last Admin: 04/25/17 16:19 Dose: 5 mg Aspirin (Aspirin Chewable) 81 mg PO DAILY [facility] Last Admin: 04/25/17 09:30 Dose: 81 mg Atorvastatin Calcium (Lipitor) 20 mg PO DIN [facility] Last Admin: 04/24/17 17:27 Dose: 20 mg Chlorhexidine Gluconate (Peridex) 15 ml PO BID [facility] Last Admin: 04/25/17 14:32 Dose: 15 ml Clopidogrel Bisulfate (Plavix) 75 mg PO DAILY [facility] Last Admin: 04/25/17 09:30 Dose: 75 mg Docusate Sodium (Colace Liquid) 100 mg PO TID [facility] Last Admin: 04/25/17 14:32 Dose: Not Given Folic Acid (Folic Acid) 1 mg PO DAILY [facility] Last Admin: 04/25/17 09:30 Dose: 1 mg Propofol (Diprivan) 1,000 mg in 100 mls @ 2.722 mls/hr IV .Q24H PRN; Protocol; 5 MCG/KG/MIN PRN Reason: TITRATE PER MD ORDER Last Titration: 04/22/17 09:26 Dose: Infused Sodium Chloride (Sodium Chloride 0.9%) 1,000 mls @ 100 mls/hr IV .Q10H [facility] Last Admin: 04/25/17 14:37 Dose: 100 mls/hr Dexmedetomidine HCl (Precedex 4 Mcg/Ml (100 Ml)) 400 mcg in 100 mls @ 4.454 mls /hr IV .[id number] PRN; Protocol; 0.2 MCG/KG/HR PRN Reason: Sedation Last Titration: 04/24/17 11:59 Dose: 0 mcg/kg/hr, 0 mls/hr Nicardipine HCl (Cardene Iv Premix) 20 mg in 200 mls @ 50 mls/hr IV .Q4H PRN; Protocol; 5 MG/HR PRN Reason: TITRATE PER MD ORDER Last Titration: 04/24/17 10:01 Dose: Infused Meropenem 1g/NS 100mL IVPB (Meropenem 1g/Ns 100ml Ivpb) 1 gm in 100 mls @ 100 mls/hr IVPB Q8 [facility] PRN Reason: Protocol Stop: 05/03/17 14:01 Last Admin: 04/25/17 14:44 Dose: 100 mls/hr Pantoprazole Sodium (Protonix Inj) 40 mg IVP DAILY [facility] Last Admin: 04/25/17 10:34 Dose: 40 mg Quetiapine Fumarate (Seroquel) 12.5 mg PO BID [facility] PRN Reason: Protocol Last Admin: 04/25/17 09:30 Dose: 12.5 mg Thiamine HCl (Vitamin B1 Tab) 50 mg PO DAILY [facility] Last Admin: 04/25/17 09:30 Dose: 50 mg Warfarin Sodium (Coumadin) 5 mg PO 1800 [facility] PRN Reason: Protocol - Labs Labs: 04/25/17 05:30 04/25/17 05:30 PT 11.1 Seconds (9.9-11.8) 04/25/17 05:30 INR 1.03 (0.93-1.08) 04/25/17 05:30 APTT 25.6 Seconds (23.7-30.8) 04/25/17 05:30 Attending/Attestation - Attestation I have personally seen and examined this patient.: Yes I have fully participated in the care of the patient.: Yes I have reviewed all pertinent clinical information, including history, physical exam and plan: Yes Notes (Text): I have seen and examined the patient at bedside. Agree with the note above with the following additions/ exceptions: Briefly this is 52 year old male with history of methadone/opioid abuse, PV, recent ischemic CVA (left MCA lesion) with broca's aphasia who was brought for evaluation of AMS, hypoxemic respiratory failure most likely due to aspiration pneumonia. Upon admission, CT head negative. CTA from [place] revealed 100% occlusion of left ICA. As sedation was titrated, it was noticed that patient was not moving his right side. MRI brain resulted showed acute and subacute infarcts embolic in nature. Echo showed calcified AV and thickened MV. Continue asa and plavix. Will start coumadin tomorrow. Discussed with head inspector and center marker and neurologist. He was on cefepime/vanco which was discontinued as he had a fever this morning. Cultures repeated. Meropenem started. UDS positive for BZ and methadone. Continue methadone. Dr Bebe Murrell.
--- NOTE | 2017-04-24 15:37 | PN ---
DATE: SUBJECTIVE: The patient is still poorly responsive. PHYSICAL EXAMINATION VITAL SIGNS: Blood pressure 166/102, heart rate 82, temperature 101 degrees Fahrenheit. HEENT: No pallor or icterus. CHEST: Diminished breath sounds bilaterally. HEART: S1 and S2 regular. EXTREMITIES: 1+ foot edema. LABORATORY DATA: Hemoglobin and hematocrit, white count and platelet count are within normal limit. SMA-7 is within normal limits except for glucose of 123 and creatinine 0.7. Today's chest x-ray revealed left lower lobe perihilar infiltrate. One set of cultures positive for staphylococcus, coagulase negative. ASSESSMENT: 1. Status post multiple left hemispheric strokes, most likely embolic with total occlusion of the ostium of the left main carotid artery. 2. History of alcohol abuse, the patient was on methadone. 3. Fever. 4. Left lower lobe lung infiltrate. RECOMMENDATIONS: I will review the echocardiographic study and its official report. There is no evidence of intracavitary thrombus on the echocardiographic study. Continue current aspirin, IV doxycycline, IV Maxipime, IV Protonix, and oral thiamine. Further future anticoagulation will be decided by the neurologist. Case was discussed with Dr. Bebe Murrell. Fuad Fuentes MD
[2017-04-24] MEDS: Meropenem 1g/NS 100mL IVPB 1 GM/100 ML PIGGYBACK IVPB SCH ×2 (15:49→22:02)
--- NOTE | 2017-04-24 16:47 | PN ---
DATE: 04/24/2017 SUBJECTIVE: The patient is in the ICU in #129, bed #2. The patient is now extubated and his mental status is poor. He is having fevers. PHYSICAL EXAMINATION VITAL SIGNS: Temperature is 101, blood pressure is 166/102, heart rate is 83, respiratory rate of 40. HEENT: Unremarkable. NECK: Supple. LUNGS: Decreased breath sounds. HEART: Normal S1 and S2. ABDOMEN: Soft and nontender. LABORATORY DATA: Laboratory examination reveals the blood cultures are negative 24 hours. Initially had positive blood cultures. The coag-negative Staph. White count of 7.6, hemoglobin of 16. BUN of 14, creatinine of 0.7. Hepatitis profile is negative. HIV is negative. Urine for Legionella antigen is negative. Strep pneumonia antigen is negative. Pneumocystis source is noted. Blood cultures, coag-negative staph in one bottle. Repeat blood cultures are negative. The patient's x-rays reveals left inferior perihilar infiltration, this has increased. Dr. Gavin Shin's progress note is appreciated. ASSESSMENT AND PLAN: A 52-year-old male who was seen earlier in the ICU, now extubated with systemic inflammatory response syndrome with toxic metabolic encephalopathy, was intubated, now extubated with chronic alcohol and opioid use with a coag-negative Staph bacteremia, mostly contamination. Repeat blood cultures negative. Procalcitonin is improved. Repeat blood cultures are negative; however, the patient did have new fever of 101 this morning and has new systemic inflammatory response syndrome. Currently on cefepime, we will discontinue the cefepime. The patient is also on doxycycline. We will also discontinue the doxycycline. Last procalcitonin was on 04/21/2017, which was down to 0.32. We will also repeat the procalcitonin this morning, send the sputum and upgrade the antibiotic to meropenem and repeat urinalysis and urine culture and sputum culture and we will follow closely with you. Salomón Arroyo MD
--- NOTE | 2017-04-24 17:35 | CARD ---
APPROVED REPORT EKG Measurement Heart [id number] <Conclusion> Normal sinus rhythm Minimal voltage criteria for LVH, may be normal variant Borderline ECG
--- NOTE | 2017-04-24 20:25 | CP.PCM.PN ---
Subjective - Date & Time of Evaluation Date of Evaluation: 04/24/17 Time of Evaluation: 20:25 - Subjective Subjective: Dr. Santiago cancelled consult yesterday Objective - Vital Signs/Intake and Output Vital Signs (last 24 hours): Temp Pulse Resp BP Pulse Ox 98.1 F 65 48 H 124/80 98 04/24/17 16:00 04/24/17 13:50 04/24/17 11:00 04/24/17 13:00 04/24/17 13:50 Intake and Output: 04/24/17 04/25/17 18:59 06:59 Intake Total 2825 Output Total 800 Balance 2024 - Medications Medications: Current Medications Aspirin (Aspirin Chewable) 81 mg PO DAILY [facility] Last Admin: 04/24/17 09:26 Dose: 81 mg Atorvastatin Calcium (Lipitor) 20 mg PO DIN [facility] Last Admin: 04/24/17 17:27 Dose: 20 mg Chlorhexidine Gluconate (Peridex) 15 ml PO BID [facility] Last Admin: 04/24/17 17:26 Dose: 15 ml Clopidogrel Bisulfate (Plavix) 75 mg PO DAILY [facility] Last Admin: 04/24/17 15:49 Dose: 75 mg Docusate Sodium (Colace Liquid) 100 mg PO TID [facility] Last Admin: 04/24/17 17:26 Dose: Not Given Folic Acid (Folic Acid) 1 mg PO DAILY [facility] Last Admin: 04/24/17 09:27 Dose: 1 mg Heparin Sodium (Porcine) (Heparin) 5,000 units SC Q12 [facility] PRN Reason: Protocol Stop: 04/25/17 11:45 Last Admin: 04/24/17 15:49 Dose: 5,000 units Propofol (Diprivan) 1,000 mg in 100 mls @ 2.722 mls/hr IV .Q24H PRN; Protocol; 5 MCG/KG/MIN PRN Reason: TITRATE PER MD ORDER Last Titration: 04/22/17 09:26 Dose: Infused Sodium Chloride (Sodium Chloride 0.9%) 1,000 mls @ 100 mls/hr IV .Q10H [facility] Last Admin: 04/24/17 04:20 Dose: 100 mls/hr Dexmedetomidine HCl (Precedex 4 Mcg/Ml (100 Ml)) 400 mcg in 100 mls @ 4.454 mls /hr IV .[id number] PRN; Protocol; 0.2 MCG/KG/HR PRN Reason: Sedation Last Titration: 04/24/17 11:59 Dose: 0 mcg/kg/hr, 0 mls/hr Nicardipine HCl (Cardene Iv Premix) 20 mg in 200 mls @ 50 mls/hr IV .Q4H PRN; Protocol; 5 MG/HR PRN Reason: TITRATE PER MD ORDER Last Titration: 04/24/17 10:01 Dose: Infused Meropenem 1g/NS 100mL IVPB (Meropenem 1g/Ns 100ml Ivpb) 1 gm in 100 mls @ 100 mls/hr IVPB Q8 [facility] PRN Reason: Protocol Stop: 05/03/17 14:01 Last Admin: 04/24/17 15:49 Dose: 100 mls/hr Pantoprazole Sodium (Protonix Inj) 40 mg IVP DAILY [facility] Last Admin: 04/24/17 09:26 Dose: 40 mg Quetiapine Fumarate (Seroquel) 12.5 mg PO BID [facility] PRN Reason: Protocol Last Admin: 04/24/17 17:27 Dose: 12.5 mg Thiamine HCl (Vitamin B1 Tab) 50 mg PO DAILY [facility] Last Admin: 04/24/17 09:27 Dose: 50 mg Warfarin Sodium (Coumadin) 5 mg PO 1800 [facility] PRN Reason: Protocol - Labs Labs: 04/24/17 05:30 04/24/17 05:30 PT 11.0 Seconds (9.9-11.8) 04/23/17 05:20 INR 1.02 (0.93-1.08) 04/23/17 05:20 APTT 28.7 Seconds (23.7-30.8) 04/19/17 23:27
[2017-04-25] MEDS: Sodium Chloride 0.9% 1,000 ML IV SCH ×2 (01:53→14:37)
[2017-04-25] MEDS: Meropenem 1g/NS 100mL IVPB 1 GM/100 ML PIGGYBACK IVPB SCH ×3 (05:23→21:20)
[2017-04-25 06:36] LABS: HEMATOCRIT 42.2 % (42.0-52.0); MEAN CELL VOLUME 99.8 fl (80.0-105.0); MEAN CORPUSCULAR HEMOGLOBIN 33.6 pg (25.0-35.0); MEAN CORPUSCULAR HGB CONC 33.6 g/dl (31.0-37.0); MEAN PLATELET VOLUME 10.6 fl (7.0-11.0); RED CELL DISTRIBUTION WIDTH 12.2 % (11.5-14.5); WHITE BLOOD COUNT 7.7 10^3/ul (4.5-11.0)
[2017-04-25 06:48] LABS: INR 1.03 (0.93-1.08); PARTIAL THROMBOPLASTIN TIME 25.6 Seconds (23.7-30.8)
[2017-04-25 06:58] LABS: ALKALINE PHOSPHATASE 143 U/L (38-126); ALT/SGPT 37 U/L (7-56); AST/SGOT 52 U/L (17-59); BILIRUBIN,TOTAL 1.3 mg/dL (0.2-1.3); BLOOD UREA NITROGEN 13 mg/dL (7-21); CALCIUM 8.9 mg/dL (8.4-10.5); CARBON DIOXIDE 27 mmol/L (21-33); CHLORIDE 105 mmol/L (98-107); GFR AFRICAN-AMERICAN > 60; GLUCOSE,RANDOM 98 mg/dL (70-110); MAGNESIUM 1.7 mg/dL (1.7-2.2); POTASSIUM 3.6 mmol/L (3.6-5.0); SODIUM 141 mmol/L (132-148); TOTAL PROTEIN 6.7 g/dL (5.8-8.3)
--- NOTE | 2017-04-25 07:23 | CON ---
HISTORY OF PRESENT ILLNESS: The patient is a 52-year-old male with history of polysubstance abuse and dependence. The patient is on methadone, which was confirmed by [facility], 60 mg a day. The patient was admitted to ICU for evaluation of change in mental status. Psych consult was called for possible medication management. The patient was found to have multiple foci of restricted effusion within the left frontal, parietal, and occipital white matter consistent with acute ischemic changes. The patient also has small foci of acute or subacute ischemia. The patient most likely has embolic disease. Psych consult was called for evaluation of change in mental status as well as possible medication management because the patient has episodes of confusion especially after Precedex was trying to weaned off. The patient was seen and examined today. The patient is not verbal, has aphasia. Collateral information was obtained from the patient's sisters who are next to the patient, Karen [phone] . The patient was discharged from [facility] where he was diagnosed with mini stroke. The patient was discharged to subacute rehab, but the patient sent himself out the day of admission on . On Friday and Friday, the patient was drinking beer and the patient's sister was not sure was he using any drugs or not. On Friday, the patient was lethargic, but they thought that the patient is drinking and he needed to have some time to sleep. At the same time by the end of the Friday, family decided to call 911 and brought the patient to the hospital for evaluation of altered mental status. As per the patient's sister, Karen, the patient does not have history of mental illness. He does not have history of suicidal attempts. He did not express any thoughts of killing himself or others. 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 The patient was functioning at his baseline and the patient going to [facility] and he has a history of polysubstance abuse and dependence. I reviewed vital signs. Vital signs seems to be stable. MEDICATIONS: Reviewed. The patient is on aspirin, Lipitor, Precedex, Plavix, Colace, folic acid, heparin, propofol, Seroquel 12.5 mg was started twice a day and as per stroke coordinator, , the patient is doing much better on this medication. The patient is also on Seroquel, thiamine, and Coumadin. LABORATORY DATA: Labs reviewed, today seems to be within normal limits. Chemistry also reviewed; magnesium is low. AST and ALT within normal limits. Urinalysis, blood large. Toxicology positive for methadone and benzodiazepines, and serology is nonreactive for HIV and hepatitis. MENTAL STATUS EXAMINATION: The patient presented today lethargic, was not able to talk or open his eyes and has aphasia. IMPRESSION: Altered mental status related to multiple medical issues including left posterior parietal subarachnoid hemorrhage, also MRI of the brain showed multiple acute ischemic changes in the left frontal, parietal, and occipital matter with subacute ischemia in the right frontal lobe. The patient has limited effusion in the left basal ganglia and temporal cortex. Findings are consistent with cardioembolic stroke. The patient also has hypertension, dyslipidemia. The patient also has history of polysubstance abuse and dependence as well as drinking, but withdrawals from the alcohol highly unlikely because the patient was drinking only for two days and before that the patient was 10 days in [facility]. This creative services writer also doubt that the patient overdosed on methadone because methadone usually is given for once-a-day dose in the [facility]one Clinic. PLAN: Continue current management. Continue current medications. The patient was taking methadone 60 mg daily, is going to taper down slowly. The patient was doing well on Seroquel 12.5 mg twice a day. We will recommend to continue that. Continue ICU care. The patient was seen by dietitian and the patient's physical therapy evaluation. As of now, there is no acute psychiatric changes and this creative services writer recommend to continue everything as it is. The patient does not have history of mental illness and this creative services writer will sign off. Please re-consult, if the patient will be more talkative we will be more than happy to help you, but meanwhile the patient has neurological deficit and not able to participate in interview. As per family, the patient did not express any suicidal or homicidal threats and was functioning at his baseline back on . Should they have any questions to give me a call back. Thank you very much. Ally Liu MD
--- NOTE | 2017-04-25 10:38 | RAD ---
HISTORY: clinical evaluation of PNA COMPARISON: 04/24/2017 FINDINGS: LUNGS: There is slight improvement in the left inferior perihilar infiltrate PLEURA: No significant pleural effusion identified, no pneumothorax apparent. CARDIOVASCULAR: Moderate cardiomegaly OSSEOUS STRUCTURES: No significant abnormalities. VISUALIZED UPPER ABDOMEN: Normal. OTHER FINDINGS: The feeding tube previously seen in the gastric fundus is now in abnormal position in the upper esophagus IMPRESSION: The feeding tube previously seen in the gastric fundus is now in abnormal position in the upper esophagus
--- NOTE | 2017-04-25 12:15 | PN ---
DATE: 04/25/2017 SUBJECTIVE: The patient is in bed in no acute distress, nontoxic. He remains extubated. He had low grade fevers. PHYSICAL EXAMINATION: VITAL SIGNS: Temperature is 98, T-max yesterday was 101, blood pressure is 145/90, respiratory rate 26, and heart rate of 111. HEENT: Examination is unremarkable. NECK: Supple. LUNGS: Have decreased breath sounds. HEART: Exam normal S1 and S2. ABDOMEN: Examination is soft and nontender. LABORATORY DATA: Examination reveals a white count of 7.7, hemoglobin of 14, and platelets of 172. BUN of 13 and creatinine of 0.7. Urinalysis is noted. WBCs are 0-2 on the urinalysis. The blood cultures from 04/23/2017, are negative. X-ray from this morning is pending. Chest x-ray from yesterday reveals left inferior perihilar infiltrates has increased. Dr. Lorenzo Olivier's progress note is reviewed and Dr. Alexa Canales's psychiatric consultation is appreciated. Dr. Cher Barnes's progress note is reviewed. Review of orders reveals the patient to be on meropenem and methadone was given once. ASSESSMENT AND PLAN: This is a 52-year-old male, who was seen earlier this morning in [facility]U 129, bed 2. He is extubated. He is comfortable with systemic inflammatory response syndrome, toxic metabolic encephalopathy, and chronic alcohol abuse and opioid use with a Coagulase-negative Staphylococcus bacteremia, most consistent with a contamination and then repeat cultures negative, now with systemic inflammatory response syndrome with possible increase in the infiltrate with healthcare-associated possible Gram-positive cocci, possible Gram-negative anjel pneumonia with all cultures negative and a repeat procalcitonin yesterday is within normal limits at 0.20 and with elevated alkaline phosphatase. We will order a ultrasound to rule out nosocomial cholelithiasis. The patient is on day #2 of meropenem. We will follow closely with you. Overall long-term prognosis is quite poor. Salomón Arroyo MD
--- NOTE | 2017-04-25 13:05 | CP.PCM.PN ---
<Cher Cordova - Last Filed: 04/25/17 15:29> Subjective - Date & Time of Evaluation Date of Evaluation: 04/25/17 Time of Evaluation: 13:02 - Subjective Subjective: Hospitalist Service Progress Note: Patient seen and examined at bedside. Per nursing no acute events overnight. Patient is off precedex, following commands. Currently verbal and able to greet us. Offers no complaints at this time. Denies headaches, dizziness, cp, palpitations, sob, abdominal pain, urinary symptoms. Objective - Vital Signs/Intake and Output Vital Signs (last 24 hours): Temp Pulse Resp BP Pulse Ox 97 F L 80 19 145/91 H 97 04/25/17 12:00 04/25/17 12:00 04/25/17 12:00 04/25/17 12:00 04/25/17 12:00 Intake and Output: 04/25/17 04/25/17 06:59 18:59 Output Total 800 Balance -800 - Medications Medications: Current Medications Aspirin (Aspirin Chewable) 81 mg PO DAILY [facility] Last Admin: 04/25/17 09:30 Dose: 81 mg Atorvastatin Calcium (Lipitor) 20 mg PO DIN [facility] Last Admin: 04/24/17 17:27 Dose: 20 mg Chlorhexidine Gluconate (Peridex) 15 ml PO BID [facility] Last Admin: 04/24/17 17:26 Dose: 15 ml Clopidogrel Bisulfate (Plavix) 75 mg PO DAILY [facility] Last Admin: 04/25/17 09:30 Dose: 75 mg Docusate Sodium (Colace Liquid) 100 mg PO TID [facility] Last Admin: 04/25/17 09:38 Dose: Not Given Folic Acid (Folic Acid) 1 mg PO DAILY [facility] Last Admin: 04/25/17 09:30 Dose: 1 mg Propofol (Diprivan) 1,000 mg in 100 mls @ 2.722 mls/hr IV .Q24H PRN; Protocol; 5 MCG/KG/MIN PRN Reason: TITRATE PER MD ORDER Last Titration: 04/22/17 09:26 Dose: Infused Sodium Chloride (Sodium Chloride 0.9%) 1,000 mls @ 100 mls/hr IV .Q10H [facility] Last Admin: 04/25/17 01:53 Dose: 100 mls/hr Dexmedetomidine HCl (Precedex 4 Mcg/Ml (100 Ml)) 400 mcg in 100 mls @ 4.454 mls /hr IV .[id number] PRN; Protocol; 0.2 MCG/KG/HR PRN Reason: Sedation Last Titration: 04/24/17 11:59 Dose: 0 mcg/kg/hr, 0 mls/hr Nicardipine HCl (Cardene Iv Premix) 20 mg in 200 mls @ 50 mls/hr IV .Q4H PRN; Protocol; 5 MG/HR PRN Reason: TITRATE PER MD ORDER Last Titration: 04/24/17 10:01 Dose: Infused Meropenem 1g/NS 100mL IVPB (Meropenem 1g/Ns 100ml Ivpb) 1 gm in 100 mls @ 100 mls/hr IVPB Q8 [facility] PRN Reason: Protocol Stop: 05/03/17 14:01 Last Admin: 04/25/17 05:23 Dose: 100 mls/hr Pantoprazole Sodium (Protonix Inj) 40 mg IVP DAILY [facility] Last Admin: 04/24/17 09:26 Dose: 40 mg Quetiapine Fumarate (Seroquel) 12.5 mg PO BID [facility] PRN Reason: Protocol Last Admin: 04/25/17 09:30 Dose: 12.5 mg Thiamine HCl (Vitamin B1 Tab) 50 mg PO DAILY [facility] Last Admin: 04/25/17 09:30 Dose: 50 mg Warfarin Sodium (Coumadin) 5 mg PO 1800 [facility] PRN Reason: Protocol - Labs Labs: 04/25/17 05:30 04/25/17 05:30 PT 11.1 Seconds (9.9-11.8) 04/25/17 05:30 INR 1.03 (0.93-1.08) 04/25/17 05:30 APTT 25.6 Seconds (23.7-30.8) 04/25/17 05:30 - Constitutional Appears: Non-toxic, No Acute Distress - Head Exam Head Exam: ATRAUMATIC, NORMAL INSPECTION - Eye Exam Eye Exam: EOMI, Normal appearance Pupil Exam: NORMAL ACCOMODATION - ENT Exam ENT Exam: Mucous Membranes Moist Additional comments: +Dobhoff in place - Neck Exam Neck Exam: Full ROM - Respiratory Exam Respiratory Exam: Rhonchi, NORMAL BREATHING PATTERN. absent: Rales, Wheezes - Cardiovascular Exam Cardiovascular Exam: REGULAR RHYTHM, +S1, +S2 - GI/Abdominal Exam GI & Abdominal Exam: Soft. absent: Guarding, Rigid, Tenderness, Rebound - Exam Additional comments: [place] in - Extremities Exam Additional comments: Only moving L upper and L lower extremities +SCDs - Back Exam Back Exam: NORMAL INSPECTION - Neurological Exam Neurological Exam: Alert, Awake - Psychiatric Exam Psychiatric exam: Normal Affect, Normal Mood - Skin Skin Exam: Normal Color, Warm Assessment and Plan - Assessment and Plan (Free Text) Assessment: 52Y M with PMH polysubstance abuse, HTN, HLD, polycythemia vera who was recently admitted to [facility] for L MCA CVA and L carotid stenosis of 100% who was d/c home on 04/17/17 and found unresponsive as per family. Family suspected overdose on methadone, patient was intubated and sedated. Head CT showed questionable L posterior parietal subarachnoid hemmorhage. MRI of brain showed multifocal acute ischemic changes in L frontal, parietal and occipital matter with subacute ischemia in R frontal lobe, as well as limited diffusion in L basal ganglia and temporal cortex. This MRI findings are consistent with cardioembolic stroke. Plan: 1. Acute CVA, Hx of Ischemic CVA with lesion of left MCA superior division - MRI showing acute ischemic changes within L frontal, parietal, and occipital lobe, embolic in nature - Echo limited study: LVEF normal, thickened mitral valve, aortic valve calcified - Continue Lipitor 20mg daily - Continue ASA and Plavix - Continue Coumadin; Monitor INR - Will advance diet to puree and honey thick liquid per speech recommendation - Aspiration precautions - Cardiology consulted, f/u recommendations - Neurology consulted, follow up recommendations 2. Acute respiratory failure in the setting of severe sepsis 2/2 aspiration pneumonia - Extubated, off precedex - Currently afebrile - CXR today showing improvement in LLL perihilar infiltrate - Currently on Merrem (day 2) - Legionella and s pneumo negative, repeat procal within normal limits - F/U sputum cx, repeat urine cx, UA - Blood cx from admission growing gram positive cocci/coag negative staph ( likely contaminant) - Repeat Blood cx showing no growth after 48 hours - ID consulted, F/U recommendations - Wrist restraints in place - Speech eval/ PT eval/ OT eval 3. Methadone and Opioid abuse - S/P narcan in the field - UTOX positive for benzos and methadone - Hep panel negative - Continue Seroquel BID - Continue Metadone taper; recieved Methadone 55mg today - Psych consulted, f/u recommendations 4. Hypertension - Will start Norvasc 5mg daily 5. Testicular Cyst -US showing small L hydrocele, Left sided varicocele, B/L epididymal cysts and 3mm L testicular calcification 6. Hx of polycythemia vera -Continue to monitor GI/DVT PPX - Protonix - Coumadin <Bebe Murrell B - Last Filed: 04/25/17 17:39> Objective - Vital Signs/Intake and Output Vital Signs (last 24 hours): Temp Pulse Resp BP Pulse Ox 97 F L 88 19 135/99 H 97 04/25/17 12:00 04/25/17 16:19 04/25/17 12:00 04/25/17 16:19 04/25/17 12:00 Intake and Output: 04/25/17 04/25/17 06:59 18:59 Output Total 800 Balance -800 - Medications Medications: Current Medications Amlodipine Besylate (Norvasc) 5 mg PO DAILY [facility] Last Admin: 04/25/17 16:19 Dose: 5 mg Aspirin (Aspirin Chewable) 81 mg PO DAILY [facility] Last Admin: 04/25/17 09:30 Dose: 81 mg Atorvastatin Calcium (Lipitor) 20 mg PO DIN [facility] Last Admin: 04/24/17 17:27 Dose: 20 mg Chlorhexidine Gluconate (Peridex) 15 ml PO BID [facility] Last Admin: 04/25/17 14:32 Dose: 15 ml Clopidogrel Bisulfate (Plavix) 75 mg PO DAILY [facility] Last Admin: 04/25/17 09:30 Dose: 75 mg Docusate Sodium (Colace Liquid) 100 mg PO TID [facility] Last Admin: 04/25/17 14:32 Dose: Not Given Folic Acid (Folic Acid) 1 mg PO DAILY [facility] Last Admin: 04/25/17 09:30 Dose: 1 mg Propofol (Diprivan) 1,000 mg in 100 mls @ 2.722 mls/hr IV .Q24H PRN; Protocol; 5 MCG/KG/MIN PRN Reason: TITRATE PER MD ORDER Last Titration: 04/22/17 09:26 Dose: Infused Sodium Chloride (Sodium Chloride 0.9%) 1,000 mls @ 100 mls/hr IV .Q10H [facility] Last Admin: 04/25/17 14:37 Dose: 100 mls/hr Dexmedetomidine HCl (Precedex 4 Mcg/Ml (100 Ml)) 400 mcg in 100 mls @ 4.454 mls /hr IV .[id number] PRN; Protocol; 0.2 MCG/KG/HR PRN Reason: Sedation Last Titration: 04/24/17 11:59 Dose: 0 mcg/kg/hr, 0 mls/hr Nicardipine HCl (Cardene Iv Premix) 20 mg in 200 mls @ 50 mls/hr IV .Q4H PRN; Protocol; 5 MG/HR PRN Reason: TITRATE PER MD ORDER Last Titration: 04/24/17 10:01 Dose: Infused Meropenem 1g/NS 100mL IVPB (Meropenem 1g/Ns 100ml Ivpb) 1 gm in 100 mls @ 100 mls/hr IVPB Q8 [facility] PRN Reason: Protocol Stop: 05/03/17 14:01 Last Admin: 04/25/17 14:44 Dose: 100 mls/hr Pantoprazole Sodium (Protonix Inj) 40 mg IVP DAILY [facility] Last Admin: 04/25/17 10:34 Dose: 40 mg Quetiapine Fumarate (Seroquel) 12.5 mg PO BID [facility] PRN Reason: Protocol Last Admin: 04/25/17 09:30 Dose: 12.5 mg Thiamine HCl (Vitamin B1 Tab) 50 mg PO DAILY [facility] Last Admin: 04/25/17 09:30 Dose: 50 mg Warfarin Sodium (Coumadin) 5 mg PO 1800 [facility] PRN Reason: Protocol - Labs Labs: 04/25/17 05:30 04/25/17 05:30 PT 11.1 Seconds (9.9-11.8) 04/25/17 05:30 INR 1.03 (0.93-1.08) 04/25/17 05:30 APTT 25.6 Seconds (23.7-30.8) 04/25/17 05:30 Attending/Attestation - Attestation I have personally seen and examined this patient.: Yes I have fully participated in the care of the patient.: Yes I have reviewed all pertinent clinical information, including history, physical exam and plan: Yes Notes (Text): I have seen and examined the patient at bedside. Agree with the note above with the following additions/ exceptions: Briefly this is 52 year old male with history of methadone/opioid abuse, PV, recent ischemic CVA (left MCA lesion) with broca's aphasia who was brought for evaluation of AMS, hypoxemic respiratory failure most likely due to aspiration pneumonia. Upon admission, CT head negative. [place]A [place] revealed 100% occlusion of left ICA. As sedation was titrated, it was noticed that patient was not moving his right side. MRI brain showed acute and subacute infarcts embolic in nature. Echo showed calcified AV and thickened MV. Continue asa, lipitor and plavix. Will start coumadin today. Discussed with drafter cartographic and neurologist. Continue meropenem. UDS positive for BZ and methadone. Continue to taper methadone. Swallow eval done. Diet will be advanced to puree and honey thick liquid. Continue seroquel. Precedex was stopped. Patient is being transferred to tele floor. PT eval pending. Upon discharge patient will follow up with PMD of choice. Dr Bebe Murrell.
--- NOTE | 2017-04-25 13:13 | PN ---
DATE: SUBJECTIVE: The patient is poorly responsive. He is speaking on his own. PHYSICAL EXAMINATION VITAL SIGNS: Blood pressure is 145/91, heart rate 80, temperature afebrile, and respirations 19. HEENT: No pallor or icterus. NECK: No JVD CHEST: Minimal right basilar rhonchi. HEART: S1 and S2 regular. EXTREMITIES: A 1+ foot edema. LABORATORY DATA: Today CBC is entirely within normal limits. Today's SMA-7 is within normal limits except for creatinine of 0.7, alkaline phosphatase elevated at 143. ASSESSMENT: 1. Status post multiple left hemispheric cerebrovascular accident with total occlusion of the ostium of the left main carotid artery. 2. Rule out underlying sepsis. 3. questionable subdural hemorrhage. 4. Ethyl alcohol abuse. RECOMMENDATIONS: Continue current aspirin, IV meropenem, Seroquel, IV Protonix and oral thiamine. The patient will be transferred to telemetry. Fuad Fuentes MD
[2017-04-25] MEDS: Chlorhexidine 0.12% Oral Sol 480 ml Bot PO SCH (14:32)
--- NOTE | 2017-04-25 15:10 | US ---
HISTORY: size if CBD COMPARISON: None available. TECHNIQUE: Sonographic evaluation of the abdomen. FINDINGS: LIVER: Measures 17.6 cm in sagittal dimension and appears within normal limits of echotexture. No focal hepatic mass identified. The main portal vein appears patent with normal directional flow. Intrahepatic bile duct dilatation. GALLBLADDER: No gallstones. No gallbladder wall thickening. Negative sonographic Rey's sign as assessed by the starch crab. COMMON BILE DUCT: Measures 10 mm. PANCREAS: Not well visualized. RIGHT KIDNEY: Measures 12.2 x 5.6 x 6.0 cm. No hydronephrosis. 7 mm nonobstructing calculus. LEFT KIDNEY: Measures 13.2 x 4.8 x 6.1 cm. No hydronephrosis. Nonobstructing 8 mm calculus. SPLEEN: Measures approximately 18.6 cm. AORTA: The aorta is not well visualized. Proximal aorta measures approximately 2.6 cm. IVC: Limited views appear unremarkable. OTHER FINDINGS: None. IMPRESSION: Intrahepatic biliary ductal dilatation. Dilated common bile duct measures approximately 10 mm in diameter. Splenomegaly. Nonobstructing bilateral renal calculi. The aorta is not well visualized. Proximal aorta measures approximately 2.6 cm.
[2017-04-26] MEDS: Meropenem 1g/NS 100mL IVPB 1 GM/100 ML PIGGYBACK IVPB SCH ×3 (06:33→21:33)
[2017-04-26 07:17] LABS: BASO # 0.05 K/mm3 (0.0-2.0); BASO % 0.7 % (0.0-3.0); EOS # 0.3 (0.0-0.7); EOS % 4.8 % (1.5-5.0); GRAN # 4.28 (1.4-6.5); GRAN % 62.8 % (50.0-68.0); HEMATOCRIT 42.2 % (42.0-52.0); LYMPH # 1.5 (1.2-3.4); LYMPH % 21.7 % (22.0-35.0); MEAN CELL VOLUME 100.2 fl (80.0-105.0); MEAN CORPUSCULAR HEMOGLOBIN 33.5 pg (25.0-35.0); MEAN CORPUSCULAR HGB CONC 33.4 g/dl (31.0-37.0); MEAN PLATELET VOLUME 11.1 fl (7.0-11.0); MONO # 0.7 (0.1-0.6); RED CELL DISTRIBUTION WIDTH 12.3 % (11.5-14.5); WHITE BLOOD COUNT 6.8 10^3/ul (4.5-11.0)
[2017-04-26 07:28] LABS: INR 1.11 (0.93-1.08); PARTIAL THROMBOPLASTIN TIME 30.8 Seconds (23.7-30.8)
[2017-04-26 07:46] LABS: ALKALINE PHOSPHATASE 136 U/L (38-126); ALT/SGPT 29 U/L (7-56); AST/SGOT 37 U/L (17-59); BILIRUBIN,TOTAL 0.8 mg/dL (0.2-1.3); BLOOD UREA NITROGEN 12 mg/dL (7-21); CARBON DIOXIDE 29 mmol/L (21-33); CHLORIDE 104 mmol/L (98-107); GFR AFRICAN-AMERICAN > 60; GLUCOSE,RANDOM 90 mg/dL (70-110); MAGNESIUM 1.8 mg/dL (1.7-2.2); PHOSPHOROUS 4.1 mg/dL (2.5-4.5); POTASSIUM 3.5 mmol/L (3.6-5.0); SODIUM 141 mmol/L (132-148); TOTAL PROTEIN 6.5 g/dL (5.8-8.3)
--- NOTE | 2017-04-26 11:33 | PN ---
DATE: 04/26/2017 SUBJECTIVE: The patient is in bed and in no acute distress. PHYSICAL EXAMINATION: VITAL SIGNS: Temperature is 98, blood pressure is 140/90, and respiratory rate of 18. HEENT: Unremarkable. NECK: Supple. LUNGS: Have decreased breath sounds. HEART: Normal S1 and S2. ABDOMEN: Soft and nontender. LABORATORY DATA: Reveals a white count of 6.8, hemoglobin of 14, and platelets of 194. Chemistry reveals a BUN of 12 and creatinine of 0.7 and the patient's procalcitonin is 0.2. The patient has a chest x-ray, which was done yesterday and slight improvement in left inferior perihilar infiltrates. The patient also had an ultrasound, which revealed the common bile duct measuring at 10 mm and intrahepatic biliary ductal dilatation and common bile duct measuring 10 mm. Review of orders reveals the patient to be on meropenem. ASSESSMENT AND PLAN: This is a 52-year-old male who was intubated in the intensive care unit and now extubated with systemic inflammatory response syndrome, toxic metabolic encephalopathy, chronic alcohol and opioid use with a coagulase-negative Staphylococcus, most likely contamination in one blood culture bacteremia. Procalcitonin is improving currently and the patient does have an elevated alk phos, did have a new fever with systemic inflammatory response syndrome, and now has biliary dilatation. We will order a HIDA scan and continue the meropenem at this time. Salomón Arroyo MD
[2017-04-26] MEDS: Chlorhexidine 0.12% Oral Sol 480 ml Bot PO SCH ×2 (11:42→18:41)
[2017-04-26] MEDS ORDERED: guaiFENesin DM 100 mg-10 mg/5 ml UD PO PRN (12:11)
--- NOTE | 2017-04-26 12:11 | CP.PCM.PN ---
<Nik Carrasco - Last Filed: 04/26/17 12:00> Subjective - Date & Time of Evaluation Date of Evaluation: 04/26/17 Time of Evaluation: 10:00 - Subjective Subjective: Subjective: Patient seen and examined at bedside. Resting comfortably in bed. No acute overnight events. Has broken speech. Follows commands. ROS cannot be ascertained at this time. Physical Examination: - Constitutional Appears: Non-toxic, No Acute Distress - Head Exam Head Exam: ATRAUMATIC, NORMAL INSPECTION - Eye Exam Eye Exam: Normal appearance - ENT Exam ENT Exam: Mucous Membranes Moist - Respiratory Exam Respiratory Exam: Rhonchi present bilaterally, NORMAL BREATHING PATTERN. absent : Rales, Wheezes - Cardiovascular Exam Cardiovascular Exam: REGULAR RHYTHM, +S1, +S2 - GI/Abdominal Exam GI & Abdominal Exam: Soft. absent: Guarding, Rigid, Tenderness, Rebound - Exam Additional comments: + decker in draining urine + testicular cyst - Extremities Exam Additional comments: +SCDs - Back Exam Back Exam: NORMAL INSPECTION - Neurological Exam Neurological Exam: absent: patient awake, alert, responds to verbal stimuli, follows commands, able to move digits on right lower extremity, Right upper extremity is flaccid - Skin Skin Exam: Normal Color, Warm Assessment and Plan: 52Y M with PMH polysubstance abuse, HTN, HLD, polycythemia vera who was recently admitted to [facility] for L MCA CVA and L carotid stenosis of 100% who was d/c home on 04/17/17 and found unresponsive as per family. Family suspected overdose on methadone, patient was intubated and sedated. Head CT showed questionable L posterior parietal subarachnoid hemmorhage. MRI of brain showed multifocal acute ischemic changes in L frontal, parietal and occipital matter with subacute ischemia in R frontal lobe, as well as limited diffusion in L basal ganglia and temporal cortex. This MRI findings are consistent with cardioembolic stroke. Abnormalities on Abdominal Ultrasound - CBD dilation approximately 10 mm - follow up with GI recs - MRCP ordered and pending Acute CVA, Hx of Ischemic CVA with lesion of left MCA superior division - Patient presented to [facility] on 04/08 with expressive aphasia - Per the family, patient was ambulating after discharge from [place] on 04/17 - CTA Head and Neck showed left internal carotid artery stenosis 100% occlusion at that time - CT 04/22 showed possible subarachnoid hemorrhage with complete L ICA occlusion - MRI showing acute ischemic changes within L frontal, parietal, and occipital lobe, embolic in nature - Echo limited study: LVEF normal, thickened mitral valve, aortic valve calcified - Continue Lipitor 20mg daily - Continue ASA and Plavix - c/w Coumadin, check INR tomorrow - Cardiology consulted, f/u recommendations - Neurology consulted, follow up recommendations - Neurosurgery consulted for subarachnoid hemorrhage, imaging reviewed SAH less likely Acute respiratory failure in the setting of severe sepsis 2/2 aspiration pneumonia - Extubated - titrate precedex off and start on seroquel - Speech eval/ PT eval/ OT eval - Last temp 101 F this morning - CXR today showing increase in LLL perihilar infiltrate - Currently on Merrem (day 2) - Legionella and s pneumo negative - F/U sputum cx, repeat urine cx, UA, procal - First Blood culture showing no growth, second cx growing gram positive cocci - Repeat Blood cx showing no growth after 24 hours - ID consulted, F/U recommendations - start dextrometorphan/guafenisen Methadone and Opioid abuse - S/P narcan in the field - UTOX positive for benzos and methadone - Hep panel negative - Psych consulted, f/u recommendations Hypokalemia - repleted and will monitor via CMP in AM - mag is WNL Hypertension -C/w amlodipine Testicular Cyst -US showing small L hydrocele, Left sided varicocele, B/L epididymal cysts and 3mm L testicular calcification Hx of polycythemia vera -Continue to monitor GI/DVT PPX - Protonix - warfarin Patient seen, case discussed with, and plan approved by attending physician, Dr. Murrell. Objective - Vital Signs/Intake and Output Vital Signs (last 24 hours): Temp Pulse Resp BP Pulse Ox 98.8 F 85 20 138/85 98 04/26/17 06:00 04/26/17 06:00 04/26/17 06:00 04/26/17 09:29 04/26/17 06:00 Intake and Output: 04/26/17 04/26/17 06:59 18:59 Intake Total 0 0 Output Total 100 500 Balance -100 -500 - Medications Medications: Current Medications Amlodipine Besylate (Norvasc) 5 mg PO DAILY [facility] Last Admin: 04/26/17 09:29 Dose: 5 mg Aspirin (Aspirin Chewable) 81 mg PO DAILY [facility] Last Admin: 04/26/17 09:30 Dose: 81 mg Atorvastatin Calcium (Lipitor) 20 mg PO DIN [facility] Last Admin: 04/25/17 17:40 Dose: 20 mg Chlorhexidine Gluconate (Peridex) 15 ml PO BID [facility] Last Admin: 04/26/17 11:42 Dose: Not Given Clopidogrel Bisulfate (Plavix) 75 mg PO DAILY [facility] Last Admin: 04/26/17 09:27 Dose: 75 mg Docusate Sodium (Colace Liquid) 100 mg PO TID [facility] Last Admin: 04/26/17 09:27 Dose: 100 mg Folic Acid (Folic Acid) 1 mg PO DAILY [facility] Last Admin: 04/26/17 09:30 Dose: 1 mg Sodium Chloride (Sodium Chloride 0.9%) 1,000 mls @ 100 mls/hr IV .Q10H [facility] Last Admin: 04/25/17 14:37 Dose: 100 mls/hr Meropenem 1g/NS 100mL IVPB (Meropenem 1g/Ns 100ml Ivpb) 1 gm in 100 mls @ 100 mls/hr IVPB Q8 [facility] PRN Reason: Protocol Stop: 05/03/17 14:01 Last Admin: 04/26/17 06:33 Dose: 100 mls/hr Pantoprazole Sodium (Protonix Inj) 40 mg IVP DAILY [facility] Last Admin: 04/26/17 09:27 Dose: 40 mg Quetiapine Fumarate (Seroquel) 12.5 mg PO BID [facility] PRN Reason: Protocol Last Admin: 04/26/17 09:28 Dose: 12.5 mg Thiamine HCl (Vitamin B1 Tab) 50 mg PO DAILY [facility] Last Admin: 04/26/17 09:27 Dose: 50 mg Warfarin Sodium (Coumadin) 5 mg PO 1800 [facility] PRN Reason: Protocol Last Admin: 04/25/17 17:41 Dose: 5 mg - Labs Labs: 04/26/17 06:30 04/26/17 06:30 PT 12.0 Seconds (9.9-11.8) H 04/26/17 06:30 INR 1.11 (0.93-1.08) H 04/26/17 06:30 APTT 30.8 Seconds (23.7-30.8) 04/26/17 06:30 <Bebe Murrell - Last Filed: 04/26/17 12:51> Objective - Vital Signs/Intake and Output Vital Signs (last 24 hours): Temp Pulse Resp BP Pulse Ox 98.8 F 85 20 138/85 98 04/26/17 06:00 04/26/17 06:00 04/26/17 06:00 04/26/17 09:29 04/26/17 06:00 Intake and Output: 04/26/17 04/26/17 06:59 18:59 Intake Total 0 0 Output Total 100 500 Balance -100 -500 - Medications Medications: Current Medications Amlodipine Besylate (Norvasc) 5 mg PO DAILY [facility] Last Admin: 04/26/17 09:29 Dose: 5 mg Aspirin (Aspirin Chewable) 81 mg PO DAILY [facility] Last Admin: 04/26/17 09:30 Dose: 81 mg Atorvastatin Calcium (Lipitor) 20 mg PO DIN [facility] Last Admin: 04/25/17 17:40 Dose: 20 mg Chlorhexidine Gluconate (Peridex) 15 ml PO BID [facility] Last Admin: 04/26/17 11:42 Dose: Not Given Clopidogrel Bisulfate (Plavix) 75 mg PO DAILY [facility] Last Admin: 04/26/17 09:27 Dose: 75 mg Docusate Sodium (Colace Liquid) 100 mg PO TID [facility] Last Admin: 04/26/17 09:27 Dose: 100 mg Folic Acid (Folic Acid) 1 mg PO DAILY [facility] Last Admin: 04/26/17 09:30 Dose: 1 mg Guaifenesin/Dextromethorphan (Robitussin Dm) 5 ml PO Q4H [facility] PRN Reason: Cough Sodium Chloride (Sodium Chloride 0.9%) 1,000 mls @ 100 mls/hr IV .Q10H [facility] Last Admin: 04/25/17 14:37 Dose: 100 mls/hr Meropenem 1g/NS 100mL IVPB (Meropenem 1g/Ns 100ml Ivpb) 1 gm in 100 mls @ 100 mls/hr IVPB Q8 [facility] PRN Reason: Protocol Stop: 05/03/17 14:01 Last Admin: 04/26/17 06:33 Dose: 100 mls/hr Pantoprazole Sodium (Protonix Inj) 40 mg IVP DAILY [facility] Last Admin: 04/26/17 09:27 Dose: 40 mg Quetiapine Fumarate (Seroquel) 12.5 mg PO BID [facility] PRN Reason: Protocol Last Admin: 04/26/17 09:28 Dose: 12.5 mg Thiamine HCl (Vitamin B1 Tab) 50 mg PO DAILY [facility] Last Admin: 04/26/17 09:27 Dose: 50 mg Warfarin Sodium (Coumadin) 5 mg PO 1800 [facility] PRN Reason: Protocol Last Admin: 04/25/17 17:41 Dose: 5 mg - Labs Labs: 04/26/17 06:30 04/26/17 06:30 PT 12.0 Seconds (9.9-11.8) H 04/26/17 06:30 INR 1.11 (0.93-1.08) H 04/26/17 06:30 APTT 30.8 Seconds (23.7-30.8) 04/26/17 06:30 Attending/Attestation - Attestation I have personally seen and examined this patient.: Yes I have fully participated in the care of the patient.: Yes I have reviewed all pertinent clinical information, including history, physical exam and plan: Yes Notes (Text): I have seen and examined the patient at bedside. Agree with the note above with the following additions/ exceptions: Briefly this is 52 year old male with history of methadone/opioid abuse, PV, recent ischemic CVA (left MCA lesion) with broca's aphasia who was brought for evaluation of AMS, hypoxemic respiratory failure most likely due to aspiration pneumonia. Upon admission, CT head negative. CTA from [place] revealed 100% occlusion of left ICA. As sedation was titrated, it was noticed that patient was not moving his right side. At that point, MRI brain was done which showed acute and subacute infarcts embolic in nature. Echo showed calcified AV and thickened MV. Patient is currently on asa, lipitor, coumadin and plavix. 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 Continue meropenem. UDS positive for BZ and methadone. Continue to taper methadone. Swallow eval done. Diet will be advanced to puree and honey thick liquid. Continue seroquel. As pt recently had a fever, US abdomen was done which showed CBD dilatation 10 mm and intrahepatic biliary dilatation. He als has elevated alk phos. There is no RUQ tenderness. Will order MRCP. 2nd BC was probably contaminated. Repeat cultures are negative. PT eval pending. Upon discharge patient will follow up with PMD of choice. Dr Bebe Murrell.
--- NOTE | 2017-04-26 17:17 | NM ---
PROCEDURE: Nuclear Medicine Hepatobiliary Scan HISTORY: r/o bg ds COMPARISON: Comparison is made to the previous ultrasound dated 04/25/2017 TECHNIQUE: 7.0 MCi of technetium 99m Mebrofenin was administered intravenously. Planar images of the abdomen were obtained at 5 min intervals to 60 mins. Delayed images were also obtained. FINDINGS: LIVER: Timely and homogenous uptake. COMMON BILE DUCT: identified at 30 mins. GALLBLADDER: identified at 60 mins. SMALL BOWEL: Identified at 45 mins. IMPRESSION: The gallbladder visualized. No scintigraphic evidence of acute cholecystitis. . The cystic duct is patent.
--- NOTE | 2017-04-26 20:54 | MRI ---
PROCEDURE: Magnetic Resonance Cholangiopancreatography HISTORY: COMPARISON: Comparison is made to the previous ultrasound of the abdomen dated 04/25/2017 and hepatobiliary scan study dated 04/26/2017. TECHNIQUE: Multiplanar, multisequence MR images of the abdomen were obtained, including heavily T2 weighted MRCP images of the biliary system. Rotating maximum intensity projection images of the biliary system were generated. FINDINGS: MRCP: The common bile duct is mildly dilated. There is suspicious for small filling defects at the common bile duct may represent small choledocholithiasis. LIVER: There is mild intrahepatic biliary ductal dilatation. No evidence of suspicious mass in the liver GALLBLADDER: The gallbladder is distended. There is suspicious for small gallstones. No evidence of acute cholecystitis P SPLEEN: The spleen is enlarged measures up to 17 centimeter in the longitudinal diameter. PANCREAS: Atrophic changes of the pancreas is noted. Main pancreatic duct is not dilated ADRENALS: Unremarkable. KIDNEYS: Unremarkable. AORTA: No aneurysm. ASCITES: None. OTHER FINDINGS: None. IMPRESSION: Mildly dilated common bile duct measures up to 11 millimeter. Suspicious for small filling defects in the common bile duct may represent small choledocholithiasis. Distended gallbladder contains small gallstones without evidence of acute cholecystitis. [id number] splenomegaly measures up to 17 centimeter in the longitudinal diameter.
[2017-04-26 23:21] LABS: URINE BILIRUBIN NEGATIVE (NEGATIVE); URINE BLOOD TRACE-INTACT (NEGATIVE); URINE GLUCOSE (UA) NEGATIVE (NEGATIVE); URINE KETONE NEGATIVE (NEGATIVE); URINE LEUKOCYTE ESTERASE NEGATIVE Leu/uL (NEGATIVE); URINE PROTEIN TRACE mg/dL (<30 mg/dL); URINE UROBILINOGEN 0.2 E.U./dL (<1 E.U./dL)
[2017-04-26 23:29] LABS: URINE APPEARANCE CLEAR (CLEAR); URINE COLOR YELLOW (YELLOW)
[2017-04-26 23:39] LABS: URINE EPITHELIAL CELLS 0 - 2 /hpf (0-5); URINE WBC 0 - 2 /hpf (0-6)
[2017-04-26 23:40] LABS: URINE CALCIUM OXALATE CRYSTALS RARE /hpf
[2017-04-26 23:41] LABS: URINE BACTERIA RARE (NEG)
[2017-04-27] MEDS: Meropenem 1g/NS 100mL IVPB 1 GM/100 ML PIGGYBACK IVPB SCH ×3 (05:29→21:31)
[2017-04-27 07:21] LABS: BASO # 0.07 K/mm3 (0.0-2.0); BASO % 1.1 % (0.0-3.0); EOS # 0.3 (0.0-0.7); EOS % 4.1 % (1.5-5.0); GRAN # 3.96 (1.4-6.5); GRAN % 59.4 % (50.0-68.0); HEMATOCRIT 44.7 % (42.0-52.0); LYMPH # 1.6 (1.2-3.4); LYMPH % 23.8 % (22.0-35.0); MEAN CORPUSCULAR HEMOGLOBIN 33.3 pg (25.0-35.0); MEAN CORPUSCULAR HGB CONC 33.3 g/dl (31.0-37.0); MEAN PLATELET VOLUME 11.2 fl (7.0-11.0); MONO # 0.8 (0.1-0.6); MONO % 11.6 % (1.0-6.0); RED CELL DISTRIBUTION WIDTH 12.1 % (11.5-14.5); WHITE BLOOD COUNT 6.7 10^3/ul (4.5-11.0)
[2017-04-27 07:25] LABS: INR 1.48 (0.93-1.08); PARTIAL THROMBOPLASTIN TIME 33.4 Seconds (23.7-30.8)
[2017-04-27 07:35] LABS: ALKALINE PHOSPHATASE 125 U/L (38-126); ALT/SGPT 30 U/L (7-56); AST/SGOT 39 U/L (17-59); BILIRUBIN,TOTAL 0.7 mg/dL (0.2-1.3); BLOOD UREA NITROGEN 13 mg/dL (7-21); CALCIUM 9.2 mg/dL (8.4-10.5); CARBON DIOXIDE 30 mmol/L (21-33); CHLORIDE 102 mmol/L (98-107); GFR AFRICAN-AMERICAN > 60; GLUCOSE,RANDOM 89 mg/dL (70-110); MAGNESIUM 1.8 mg/dL (1.7-2.2); PHOSPHOROUS 4.6 mg/dL (2.5-4.5); POTASSIUM 3.5 mmol/L (3.6-5.0); SODIUM 141 mmol/L (132-148); TOTAL PROTEIN 6.9 g/dL (5.8-8.3)
[2017-04-27] MEDS: Chlorhexidine 0.12% Oral Sol 480 ml Bot PO SCH (10:34)
--- NOTE | 2017-04-27 11:23 | CP.PCM.PN ---
<Nik Carrasco - Last Filed: 04/27/17 11:17> Subjective - Date & Time of Evaluation Date of Evaluation: 04/27/17 Time of Evaluation: 10:15 - Subjective Subjective: Subjective: Patient seen and examined at bedside. Resting comfortably in bed. No acute overnight events. Has broken speech. Follows commands. Able to have minimal purposeful movement of the right hand. Patient able to answer yes/no questions with time. Denies f/c/cp/sob/abdominal pain/n/v/d/c/urinary sxs. Physical Examination: - Constitutional Appears: Non-toxic, No Acute Distress - Head Exam Head Exam: ATRAUMATIC, NORMAL INSPECTION - Eye Exam Eye Exam: Normal appearance - ENT Exam ENT Exam: Mucous Membranes Moist - Respiratory Exam Respiratory Exam: Rhonchi present bilaterally, NORMAL BREATHING PATTERN. absent : Rales, Wheezes - Cardiovascular Exam Cardiovascular Exam: REGULAR RHYTHM, +S1, +S2 - GI/Abdominal Exam GI & Abdominal Exam: Soft. absent: Guarding, Rigid, Tenderness, Rebound - Exam Additional comments: + decker in draining urine + testicular cyst - Extremities Exam Additional comments: +SCDs, Bandage clean dry intact on right knee - Back Exam Back Exam: NORMAL INSPECTION - Neurological Exam Neurological Exam: absent: patient awake, alert, responds to verbal stimuli, follows commands, able to move digits on right lower extremity, Right upper extremity is flaccid - Skin Skin Exam: Normal Color, Warm Assessment and Plan: 52Y M with PMH polysubstance abuse, HTN, HLD, polycythemia vera who was recently admitted to [facility] for L MCA CVA and L carotid stenosis of 100% who was d/c home on 04/17/17 and found unresponsive as per family. Family suspected overdose on methadone, patient was intubated and sedated. Head CT showed questionable L posterior parietal subarachnoid hemmorhage. MRI of brain showed multifocal acute ischemic changes in L frontal, parietal and occipital matter with subacute ischemia in R frontal lobe, as well as limited diffusion in L basal ganglia and temporal cortex. This MRI findings are consistent with cardioembolic stroke. Abnormalities on Abdominal Ultrasound - CBD dilation approximately 10 mm - follow up with GI recs - MRCP ordered- read appreciated, as per GI no acute intervention needed at this time, recommends outpatient EUS Acute CVA, Hx of Ischemic CVA with lesion of left MCA superior division - Patient presented to [facility] on 04/08 with expressive aphasia - Per the family, patient was ambulating after discharge from [place] on 04/17 - CTA Head and Neck showed left internal carotid artery stenosis 100% occlusion at that time - CT 04/22 showed possible subarachnoid hemorrhage with complete L ICA occlusion - MRI showing acute ischemic changes within L frontal, parietal, and occipital lobe, embolic in nature - Echo limited study: LVEF normal, thickened mitral valve, aortic valve calcified - Continue Lipitor 20mg daily - Continue ASA and Plavix - c/w Coumadin, check INR tomorrow - Cardiology consulted, f/u recommendations - Neurology consulted, follow up recommendations - Neurosurgery consulted for subarachnoid hemorrhage, imaging reviewed SAH less likely Acute respiratory failure in the setting of severe sepsis 2/2 aspiration pneumonia - Extubated - titrate precedex off and start on seroquel - Speech eval/ PT eval/ OT eval - Last temp 101 F this morning - CXR today showing increase in LLL perihilar infiltrate - Currently on Merrem (day 2) - Legionella and s pneumo negative - F/U sputum cx, repeat urine cx, UA, procal - First Blood culture showing no growth, second cx growing gram positive cocci - Repeat Blood cx showing no growth after 24 hours - ID consulted, F/U recommendations - start dextrometorphan/guafenisen Methadone and Opioid abuse - S/P narcan in the field - UTOX positive for benzos and methadone - Hep panel negative - Psych consulted, f/u recommendations Hypokalemia - repleted again and will monitor via CMP in AM - mag is WNL Hypertension -C/w amlodipine Testicular Cyst -US showing small L hydrocele, Left sided varicocele, B/L epididymal cysts and 3mm L testicular calcification Hx of polycythemia vera -Continue to monitor Deconditioning - PT/OT GI/DVT PPX - Protonix - warfarin Patient seen, case discussed with, and plan approved by attending physician, Dr. Murrell. Objective - Vital Signs/Intake and Output Vital Signs (last 24 hours): Temp Pulse Resp BP Pulse Ox 98.6 F 75 20 138/91 H 98 04/27/17 06:00 04/27/17 10:32 04/27/17 06:00 04/27/17 10:32 04/27/17 06:00 Intake and Output: 04/27/17 04/27/17 06:59 18:59 Intake Total 1800 Output Total 2300 Balance -500 - Medications Medications: Current Medications Amlodipine Besylate (Norvasc) 5 mg PO DAILY [facility] Last Admin: 04/27/17 10:32 Dose: 5 mg Aspirin (Aspirin Chewable) 81 mg PO DAILY [facility] Last Admin: 04/27/17 10:32 Dose: 81 mg Atorvastatin Calcium (Lipitor) 20 mg PO DIN [facility] Last Admin: 04/26/17 18:41 Dose: 20 mg Chlorhexidine Gluconate (Peridex) 15 ml PO BID [facility] Last Admin: 04/27/17 10:34 Dose: Not Given Clopidogrel Bisulfate (Plavix) 75 mg PO DAILY [facility] Last Admin: 04/27/17 10:32 Dose: 75 mg Docusate Sodium (Colace Liquid) 100 mg PO TID [facility] Last Admin: 04/27/17 10:32 Dose: Not Given Folic Acid (Folic Acid) 1 mg PO DAILY [facility] Last Admin: 04/27/17 10:33 Dose: 1 mg Guaifenesin/Dextromethorphan (Robitussin Dm) 5 ml PO Q4H [facility] PRN Reason: Cough Sodium Chloride (Sodium Chloride 0.9%) 1,000 mls @ 100 mls/hr IV .Q10H [facility] Last Admin: 04/25/17 14:37 Dose: 100 mls/hr Meropenem 1g/NS 100mL IVPB (Meropenem 1g/Ns 100ml Ivpb) 1 gm in 100 mls @ 100 mls/hr IVPB Q8 [facility] PRN Reason: Protocol Stop: 05/03/17 14:01 Last Admin: 04/27/17 05:29 Dose: 100 mls/hr Potassium Chloride (Potassium Chloride 20 Meq/100 Ml) 20 meq in 100 mls @ 50 mls/hr IVPB Q2H [facility] Stop: 04/27/17 12:59 Last Admin: 04/27/17 10:35 Dose: 50 mls/hr Pantoprazole Sodium (Protonix Inj) 40 mg IVP DAILY [facility] Last Admin: 04/27/17 10:32 Dose: 40 mg Quetiapine Fumarate (Seroquel) 12.5 mg PO BID [facility] PRN Reason: Protocol Last Admin: 04/27/17 10:33 Dose: 12.5 mg Thiamine HCl (Vitamin B1 Tab) 50 mg PO DAILY [facility] Last Admin: 04/27/17 10:32 Dose: 50 mg Warfarin Sodium (Coumadin) 5 mg PO 1800 [facility] PRN Reason: Protocol Last Admin: 04/26/17 18:41 Dose: 5 mg - Labs Labs: 04/27/17 06:30 04/27/17 06:30 PT 16.0 Seconds (9.9-11.8) H 04/27/17 06:30 INR 1.48 (0.93-1.08) H 04/27/17 06:30 APTT 33.4 Seconds (23.7-30.8) H 04/27/17 06:30 <Bebe Murrell - Last Filed: 04/27/17 14:09> Objective - Vital Signs/Intake and Output Vital Signs (last 24 hours): Temp Pulse Resp BP Pulse Ox 98.6 F 75 20 138/91 H 98 04/27/17 06:00 04/27/17 10:32 04/27/17 06:00 04/27/17 10:32 04/27/17 06:00 Intake and Output: 04/27/17 04/27/17 06:59 18:59 Intake Total 1800 Output Total 2300 Balance -500 - Medications Medications: Current Medications Amlodipine Besylate (Norvasc) 5 mg PO DAILY [facility] Last Admin: 04/27/17 10:32 Dose: 5 mg Aspirin (Aspirin Chewable) 81 mg PO DAILY [facility] Last Admin: 04/27/17 10:32 Dose: 81 mg Atorvastatin Calcium (Lipitor) 20 mg PO DIN [facility] Last Admin: 04/26/17 18:41 Dose: 20 mg Chlorhexidine Gluconate (Peridex) 15 ml PO BID [facility] Last Admin: 04/27/17 10:34 Dose: Not Given Clopidogrel Bisulfate (Plavix) 75 mg PO DAILY [facility] Last Admin: 04/27/17 10:32 Dose: 75 mg Docusate Sodium (Colace Liquid) 100 mg PO TID [facility] Last Admin: 04/27/17 13:42 Dose: Not Given Folic Acid (Folic Acid) 1 mg PO DAILY [facility] Last Admin: 04/27/17 10:33 Dose: 1 mg Guaifenesin/Dextromethorphan (Robitussin Dm) 5 ml PO Q4H [facility] PRN Reason: Cough Sodium Chloride (Sodium Chloride 0.9%) 1,000 mls @ 100 mls/hr IV .Q10H [facility] Last Admin: 04/25/17 14:37 Dose: 100 mls/hr Meropenem 1g/NS 100mL IVPB (Meropenem 1g/Ns 100ml Ivpb) 1 gm in 100 mls @ 100 mls/hr IVPB Q8 [facility] PRN Reason: Protocol Stop: 05/03/17 14:01 Last Admin: 04/27/17 13:38 Dose: 100 mls/hr Pantoprazole Sodium (Protonix Inj) 40 mg IVP DAILY [facility] Last Admin: 04/27/17 10:32 Dose: 40 mg Quetiapine Fumarate (Seroquel) 12.5 mg PO BID [facility] PRN Reason: Protocol Last Admin: 04/27/17 10:33 Dose: 12.5 mg Thiamine HCl (Vitamin B1 Tab) 50 mg PO DAILY [facility] Last Admin: 04/27/17 10:32 Dose: 50 mg Warfarin Sodium (Coumadin) 5 mg PO 1800 [facility] PRN Reason: Protocol Last Admin: 04/26/17 18:41 Dose: 5 mg - Labs Labs: 04/27/17 06:30 04/27/17 06:30 PT 16.0 Seconds (9.9-11.8) H 04/27/17 06:30 INR 1.48 (0.93-1.08) H 04/27/17 06:30 APTT 33.4 Seconds (23.7-30.8) H 04/27/17 06:30 Attending/Attestation - Attestation I have personally seen and examined this patient.: Yes I have fully participated in the care of the patient.: Yes I have reviewed all pertinent clinical information, including history, physical exam and plan: Yes Notes (Text): I have seen and examined the patient at bedside. Agree with the note above with the following additions/ exceptions: Briefly this is 52 year old male with history of methadone/opioid abuse, PV, recent ischemic CVA (left MCA lesion) with broca's aphasia who was brought for evaluation of AMS, hypoxemic respiratory failure most likely due to aspiration pneumonia. Upon admission, CT head negative. CTA from [place] revealed 100% occlusion of left ICA. As sedation was titrated, it was noticed that patient was not moving his right side. At that point, MRI brain was done which showed acute and subacute infarcts embolic in nature. Overall, there is slight improvement in speech and right arm strength. Echo showed calcified AV and thickened MV. Patient is currently on asa, lipitor, coumadin and plavix. Continue meropenem. UDS positive for BZ and methadone. Continue to taper methadone. Swallow eval done. Diet will be advanced to puree and honey thick liquid. Continue seroquel. As pt recently had a fever, US abdomen was done which showed CBD dilatation 10 mm and intrahepatic biliary dilatation. He als has elevated alk phos. There is no RUQ tenderness. MRCP revealed choledocholithiasis. GI recommended eventual EUS. 2nd BC was probably contaminated. Repeat cultures are negative. PT eval pending. Upon discharge patient will follow up with PMD of choice. Dr Bebe Murrell.
--- NOTE | 2017-04-27 12:46 | CP.PCM.CON ---
<Ilsa Carrasco - Last Filed: 04/27/17 12:59> History of Present Illness - History of Present Illness History of Present Illness: PGY 4 Initial GI Consult Catracho Gray is a 52M w/ hx od opiod abuse, seizures, CVA who presented after being found unresponsive at home. Pt was seen and examined bedside, but could not make meaningful communication. All information is gathered from EMR and staff. As per chart, pt had a supposed methadoen overdose and was given narcan in the field. He was in supposed respiratory distress and intubated in the field. Pt was inially in the ICU and eventually extubated. His hospital course was complicated by additional finding of ischemic areas on brain MRI which was likely caused by embolic showering. GI was consulted due to a incidental finding of dialated CBD on abd u/s. An MRCP as performed and revealed a dilated CBD of 1.1cm and possible small filling defect. As per RN, there were no overnight events. There were no additional findings of melena, hematesis, or coffe-ground emesis. PMH: opiate abuse, hx of heroin abuse, HTN, polycythemia vera and recent admission to [facility] for ischemic stroke involving Left MCA superior division and evidence of left internal carotid artery occlusion of 100% PSHx: unknown Social: opiate abuse, unknown smoking or ETOH use Family hx: unknown Endoscopy hx: unknown ROS: 12-point ROS conducted, neg other than above Past Patient History - Past Social History Smoking Status: Current Some Days Smoker - CARDIAC Hx Hypertension: Yes - PULMONARY Hx Respiratory Disorders: No - NEUROLOGICAL HX Cerebrovascular Accident: Yes - HEENT Hx HEENT Problems: No - RENAL Hx Chronic Kidney Disease: No - ENDOCRINE/METABOLIC Hx Endocrine Disorders: No - HEMATOLOGICAL/ONCOLOGICAL Hx Blood Disorders: No - INTEGUMENTARY Hx Dermatological Problems: No Other/Comment: hole in the lower back,tatoos on the left arm and back of the neck,piercing onth left eyebrow - MUSCULOSKELETAL/RHEUMATOLOGICAL Hx Falls: No - GASTROINTESTINAL Hx Gastrointestinal Disorders: No - GENITOURINARY/GYNECOLOGICAL Hx Genitourinary Disorders: No - PSYCHIATRIC Hx Psychophysiologic Disorder: No Hx Substance Use: Yes (oxycodone,methadone) Other/Comment: chronic alcohol abuse,opiate abuse on methadone and oxycontin - SURGICAL HISTORY Hx Surgeries: No - ANESTHESIA Hx Anesthesia: Yes Meds Allergies/Adverse Reactions: Allergies Allergy/AdvReac Type Severity Reaction Status Date / Time No Known Allergies Allergy Verified 04/19/17 23:24 - Medications Medications: Current Medications Amlodipine Besylate (Norvasc) 5 mg PO DAILY [facility] Last Admin: 04/27/17 10:32 Dose: 5 mg Aspirin (Aspirin Chewable) 81 mg PO DAILY [facility] Last Admin: 04/27/17 10:32 Dose: 81 mg Atorvastatin Calcium (Lipitor) 20 mg PO DIN [facility] Last Admin: 04/26/17 18:41 Dose: 20 mg Chlorhexidine Gluconate (Peridex) 15 ml PO BID [facility] Last Admin: 04/27/17 10:34 Dose: Not Given Clopidogrel Bisulfate (Plavix) 75 mg PO DAILY [facility] Last Admin: 04/27/17 10:32 Dose: 75 mg Docusate Sodium (Colace Liquid) 100 mg PO TID [facility] Last Admin: 04/27/17 10:32 Dose: Not Given Folic Acid (Folic Acid) 1 mg PO DAILY [facility] Last Admin: 04/27/17 10:33 Dose: 1 mg Guaifenesin/Dextromethorphan (Robitussin Dm) 5 ml PO Q4H PRN PRN Reason: Cough Sodium Chloride (Sodium Chloride 0.9%) 1,000 mls @ 100 mls/hr IV .Q10H [facility] Last Admin: 04/25/17 14:37 Dose: 100 mls/hr Meropenem 1g/NS 100mL IVPB (Meropenem 1g/Ns 100ml Ivpb) 1 gm in 100 mls @ 100 mls/hr IVPB Q8 [facility] PRN Reason: Protocol Stop: 05/03/17 14:01 Last Admin: 04/27/17 05:29 Dose: 100 mls/hr Potassium Chloride (Potassium Chloride 20 Meq/100 Ml) 20 meq in 100 mls @ 50 mls/hr IVPB Q2H [facility] Stop: 04/27/17 12:59 Last Admin: 04/27/17 10:35 Dose: 50 mls/hr Pantoprazole Sodium (Protonix Inj) 40 mg IVP DAILY [facility] Last Admin: 04/27/17 10:32 Dose: 40 mg Quetiapine Fumarate (Seroquel) 12.5 mg PO BID [facility] PRN Reason: Protocol Last Admin: 04/27/17 10:33 Dose: 12.5 mg Thiamine HCl (Vitamin B1 Tab) 50 mg PO DAILY [facility] Last Admin: 04/27/17 10:32 Dose: 50 mg Warfarin Sodium (Coumadin) 5 mg PO 1800 [facility] PRN Reason: Protocol Last Admin: 04/26/17 18:41 Dose: 5 mg Physical Exam - Constitutional Appears: Well, No Acute Distress, Older Than Stated Age, Chronically Ill - Head Exam Head Exam: ATRAUMATIC, NORMOCEPHALIC - Eye Exam Eye Exam: Normal appearance - ENT Exam ENT Exam: Mucous Membranes Moist - Respiratory Exam Respiratory Exam: Clear to Auscultation Bilateral, NORMAL BREATHING PATTERN. absent: Rales, Rhonchi, Wheezes, Respiratory Distress - Cardiovascular Exam Cardiovascular Exam: REGULAR RHYTHM, +S1, +S2 - GI/Abdominal Exam GI & Abdominal Exam: Normal Bowel Sounds, Soft. absent: Distended, Firm, Guarding - Extremities Exam Extremities exam: Negative for: joint swelling, pedal edema - Neurological Exam Neurological exam: Alert, Oriented x3 - Psychiatric Exam Psychiatric exam: Normal Affect, Normal Mood - Skin Skin Exam: Dry, Intact, Normal Color, Warm Results - Vital Signs Recent Vital Signs: Last Vital Signs Temp 98.6 F 04/27/17 06:00 Pulse 75 04/27/17 10:32 Resp 20 04/27/17 06:00 BP 138/91 H 04/27/17 10:32 Pulse Ox 98 04/27/17 06:00 - Labs Result Diagrams: 04/27/17 06:30 04/27/17 06:30 Labs: Laboratory Results - last 24 hr 04/26/17 04/27/17 04/27/17 21:40 06:30 06:30 WBC RBC Hgb Hct MCV MCH MCHC RDW Plt Count MPV Gran % Lymph % (Auto) [place] % (Auto) Eos % (Auto) Baso % (Auto) Gran # Lymph # [place] # Eos # Baso # PT 16.0 H INR 1.48 H APTT 33.4 H Sodium 141 Potassium 3.5 L Chloride 102 Carbon Dioxide 30 Anion Gap 13 BUN 13 Creatinine 0.7 L Est GFR ( Amer) > 60 Est GFR (Non-Af Amer) > 60 Random Glucose 89 Calcium 9.2 Phosphorus 4.6 H Magnesium 1.8 Total Bilirubin 0.7 AST 39 ALT 30 Alkaline Phosphatase 125 Total Protein 6.9 Albumin 3.4 Globulin 3.5 Albumin/Globulin Ratio 1.0 L Urine Color Yellow Urine Appearance Clear Urine pH 6.0 Ur Specific [place] 1.020 Urine Protein Trace H Urine Glucose (UA) Negative Urine Ketones Negative Urine Blood Trace-intact H Urine Nitrate Negative Urine Bilirubin Negative Urine Urobilinogen 0.2 Ur Leukocyte Esterase Negative Urine RBC 2 - 5 Urine WBC 0 - 2 Ur Epithelial Cells 0 - 2 Calcium Oxalate Crystal Rare Urine Bacteria Rare Hyaline Casts 0 - 2 04/27/17 06:30 WBC 6.7 RBC 4.47 Hgb 14.9 Hct 44.7 MCV 100.0 MCH 33.3 MCHC 33.3 RDW 12.1 Plt Count 195 MPV 11.2 H Gran % 59.4 Lymph % (Auto) 23.8 [place] % (Auto) 11.6 H Eos % (Auto) 4.1 Baso % (Auto) 1.1 Gran # 3.96 Lymph # 1.6 [place] # 0.8 H Eos # 0.3 Baso # 0.07 PT INR APTT Sodium Potassium Chloride Carbon Dioxide Anion Gap BUN Creatinine Est GFR ( Amer) Est GFR (Non-Af Amer) Random Glucose Calcium Phosphorus Magnesium Total Bilirubin AST ALT Alkaline Phosphatase Total Protein Albumin Globulin Albumin/Globulin Ratio Urine Color Urine Appearance Urine pH Ur Specific [place] Urine Protein Urine Glucose (UA) Urine Ketones Urine Blood Urine Nitrate Urine Bilirubin Urine Urobilinogen Ur Leukocyte Esterase Urine RBC Urine WBC Ur Epithelial Cells Calcium Oxalate Crystal Urine Bacteria Hyaline Casts Assessment & Plan - Assessment and Plan (Free Text) Assessment: Catracho Gray is a 52M w/ hx of opoid abuse, CVA who presented to [facility] after being found unresponsive. He was found to have a dilated CBD of 1.1cm on MRCP etiology is likely due to chronic opiod use. MRCP also revealed possible atrophy of the pancreas which may be incidental, buta cannot rule out a remote chance of malignancy CBD dilation Mild Pancreatic atrophy Plan: -no need for emergent GI eval -recommend care as per primary team -LFTs normal -MRCP revealed as above -Recommend eventual EUS to eval pancreas to r/o malignancy as an oupt -continue to monitor LFTs -recommend strict aspiration risk -GI px -will sign off D/W Dr. Gillespie <Matthew Gillespie - Last Filed: 04/27/17 14:36> Meds - Medications Medications: Current Medications Amlodipine Besylate (Norvasc) 5 mg PO DAILY [facility] Last Admin: 04/27/17 10:32 Dose: 5 mg Aspirin (Aspirin Chewable) 81 mg PO DAILY [facility] Last Admin: 04/27/17 10:32 Dose: 81 mg Atorvastatin Calcium (Lipitor) 20 mg PO DIN [facility] Last Admin: 04/26/17 18:41 Dose: 20 mg Chlorhexidine Gluconate (Peridex) 15 ml PO BID [facility] Last Admin: 04/27/17 10:34 Dose: Not Given Clopidogrel Bisulfate (Plavix) 75 mg PO DAILY [facility] Last Admin: 04/27/17 10:32 Dose: 75 mg Docusate Sodium (Colace Liquid) 100 mg PO TID [facility] Last Admin: 04/27/17 13:42 Dose: Not Given Folic Acid (Folic Acid) 1 mg PO DAILY [facility] Last Admin: 04/27/17 10:33 Dose: 1 mg Guaifenesin/Dextromethorphan (Robitussin Dm) 5 ml PO Q4H PRN PRN Reason: Cough Sodium Chloride (Sodium Chloride 0.9%) 1,000 mls @ 100 mls/hr IV .Q10H [facility] Last Admin: 04/25/17 14:37 Dose: 100 mls/hr Meropenem 1g/NS 100mL IVPB (Meropenem 1g/Ns 100ml Ivpb) 1 gm in 100 mls @ 100 mls/hr IVPB Q8 [facility] PRN Reason: Protocol Stop: 05/03/17 14:01 Last Admin: 04/27/17 13:38 Dose: 100 mls/hr Pantoprazole Sodium (Protonix Inj) 40 mg IVP DAILY [facility] Last Admin: 04/27/17 10:32 Dose: 40 mg Quetiapine Fumarate (Seroquel) 12.5 mg PO BID [facility] PRN Reason: Protocol Last Admin: 04/27/17 10:33 Dose: 12.5 mg Thiamine HCl (Vitamin B1 Tab) 50 mg PO DAILY [facility] Last Admin: 04/27/17 10:32 Dose: 50 mg Warfarin Sodium (Coumadin) 5 mg PO 1800 [facility] PRN Reason: Protocol Last Admin: 04/26/17 18:41 Dose: 5 mg Results - Vital Signs Recent Vital Signs: Last Vital Signs Temp 98.6 F 04/27/17 06:00 Pulse 75 04/27/17 10:32 Resp 20 10/15/17 06:00 BP 138/91 H 04/27/17 10:32 Pulse Ox 98 04/27/17 06:00 - Labs Result Diagrams: 04/27/17 06:30 04/27/17 06:30 Labs: Laboratory Results - last 24 hr 04/26/17 04/27/17 04/27/17 21:40 06:30 06:30 WBC RBC Hgb Hct MCV MCH MCHC RDW Plt Count MPV Gran % Lymph % (Auto) [place] % (Auto) Eos % (Auto) Baso % (Auto) Gran # Lymph # [place] # Eos # Baso # PT 16.0 H INR 1.48 H APTT 33.4 H Sodium 141 Potassium 3.5 L Chloride 102 Carbon Dioxide 30 Anion Gap 13 BUN 13 Creatinine 0.7 L Est GFR ( Amer) > 60 Est GFR (Non-Af Amer) > 60 Random Glucose 89 Calcium 9.2 Phosphorus 4.6 H Magnesium 1.8 Total Bilirubin 0.7 AST 39 ALT 30 Alkaline Phosphatase 125 Total Protein 6.9 Albumin 3.4 Globulin 3.5 Albumin/Globulin Ratio 1.0 L Urine Color Yellow Urine Appearance Clear Urine pH 6.0 Ur Specific [place] 1.020 Urine Protein Trace H Urine Glucose (UA) Negative Urine Ketones Negative Urine Blood Trace-intact H Urine Nitrate Negative Urine Bilirubin Negative Urine Urobilinogen 0.2 Ur Leukocyte Esterase Negative Urine RBC 2 - 5 Urine WBC 0 - 2 Ur Epithelial Cells 0 - 2 Calcium Oxalate Crystal Rare Urine Bacteria Rare Hyaline Casts 0 - 2 04/27/17 06:30 WBC 6.7 RBC 4.47 Hgb 14.9 Hct 44.7 MCV 100.0 MCH 33.3 MCHC 33.3 RDW 12.1 Plt Count 195 MPV 11.2 H Gran % 59.4 Lymph % (Auto) 23.8 [place] % (Auto) 11.6 H Eos % (Auto) 4.1 Baso % (Auto) 1.1 Gran # 3.96 Lymph # 1.6 [place] # 0.8 H Eos # 0.3 Baso # 0.07 PT INR APTT Sodium Potassium Chloride Carbon Dioxide Anion Gap BUN Creatinine Est GFR ( Amer) Est GFR (Non-Af Amer) Random Glucose Calcium Phosphorus Magnesium Total Bilirubin AST ALT Alkaline Phosphatase Total Protein Albumin Globulin Albumin/Globulin Ratio Urine Color Urine Appearance Urine pH Ur Specific [place] Urine Protein Urine Glucose (UA) Urine Ketones Urine Blood Urine Nitrate Urine Bilirubin Urine Urobilinogen Ur Leukocyte Esterase Urine RBC Urine WBC Ur Epithelial Cells Calcium Oxalate Crystal Urine Bacteria Hyaline Casts Attending/Attestation - Attestation I have personally seen and examined this patient.: Yes I have fully participated in the care of the patient.: Yes I have reviewed all pertinent clinical information: Yes Notes (Text): 04/27/17 14:34 52 year old male with h/o Opiate abuse, CVA, admitted after being found unresponsive, currently remains altered unable to follow commands or answer questions, incidentally noted to have CBD dilation. 1. Dilation of the common bile duct 2. Pancreatic atrophy Plan: -no mass lesions noted on cross sectional imaging -EUS would be recommended on an elective basis to r/o small mass lesion -most likely etiology is chronic opiate use at this point -patient is asymptomatic with unremarkable lfts -no acute intervention needed at this time -will sign off
--- NOTE | 2017-04-27 13:42 | PN ---
DATE: 04/27/2017 SUBJECTIVE: The patient is in bed, in no acute distress. PHYSICAL EXAMINATION: VITAL SIGNS: On exam, temperature is 98, blood pressure is 130/70, and respiratory rate of 20. HEENT: Examination of HEENT is unremarkable. Neck is supple. LUNGS: Have decreased breath sounds. HEART: Exam is normal S1 and S2. GASTROINTESTINAL: Abdominal examination is soft and nontender. LABORATORY DATA: Examination reveals a white count of 6.7, hemoglobin of 14, and platelets of 195. Chemistries reveals a BUN of 13 and creatinine of 0.7. The urinalysis is noted and serology is noted to be negative. Microbiology reveals a coagulase negative Staphylococcus in the blood and repeat blood cultures are negative. MEDICATIONS: Review of orders reveals the patient to be on warfarin, atorvastatin, and the patient is still on meropenem. DIAGNOSTIC DATA: The patient had an MRCP yesterday, which showed a mildly dilated common bile duct measuring a 11 mm suspicious for small filling defect in the common bile duct may represent small choledocholithiasis, distended gallbladder, multiple stones and moderate splenomegaly. The patient also had a HIDA scan which reveals a cystic duct is patent. Dr. Murrell's note is reviewed. ASSESSMENT AND PLAN: This is a 52-year-old male who is in the Intensive Care Unit, was intubated, now uncomfortable extubated, doing well with systemic inflammatory response syndrome, toxic metabolic encephalopathy, chronic alcohol and opiate use and a coagulase-negative Staphylococcus, most likely a contamination. The patient does have persistent elevated alkaline phosphatase and now a positive magnetic retrograde cholangiopancreatography with (SIRS) systemic inflammatory response syndrome and biliary dilatation and negative HIDA scan but a positive magnetic retrograde cholangiopancreatography. We will continue the meropenem, pending GI input regarding the magnetic retrograde cholangiopancreatography results. The patient's white count is normal and the now the alkaline phosphatase is normalized, we will repeat that and carson cultures negative. Salomón Arroyo MD
[2017-04-28] MEDS: Meropenem 1g/NS 100mL IVPB 1 GM/100 ML PIGGYBACK IVPB SCH ×2 (06:46→14:12)
[2017-04-28] MEDS: Sodium Chloride 0.9% 1,000 ML IV SCH (06:46)
[2017-04-28 07:06] LABS: BASO # 0.05 K/mm3 (0.0-2.0); BASO % 0.8 % (0.0-3.0); EOS # 0.3 (0.0-0.7); EOS % 4.5 % (1.5-5.0); GRAN # 3.31 (1.4-6.5); GRAN % 55.6 % (50.0-68.0); HEMATOCRIT 42.8 % (42.0-52.0); INR 2.11 (0.93-1.08); LYMPH # 1.7 (1.2-3.4); MEAN CELL VOLUME 98.4 fl (80.0-105.0); MEAN CORPUSCULAR HEMOGLOBIN 33.1 pg (25.0-35.0); MEAN CORPUSCULAR HGB CONC 33.6 g/dl (31.0-37.0); MEAN PLATELET VOLUME 10.9 fl (7.0-11.0); MONO # 0.7 (0.1-0.6); MONO % 11.1 % (1.0-6.0); PARTIAL THROMBOPLASTIN TIME 37.1 Seconds (23.7-30.8)
[2017-04-28 07:43] LABS: ALKALINE PHOSPHATASE 119 U/L (38-126); ALT/SGPT 38 U/L (7-56); AST/SGOT 47 U/L (17-59); BILIRUBIN,TOTAL 0.7 mg/dL (0.2-1.3); BLOOD UREA NITROGEN 12 mg/dL (7-21); CALCIUM 9.2 mg/dL (8.4-10.5); CARBON DIOXIDE 29 mmol/L (21-33); CHLORIDE 102 mmol/L (98-107); GFR AFRICAN-AMERICAN > 60; GLUCOSE,RANDOM 97 mg/dL (70-110); POTASSIUM 3.7 mmol/L (3.6-5.0); SODIUM 140 mmol/L (132-148); TOTAL PROTEIN 6.8 g/dL (5.8-8.3)
[2017-04-28] MEDS: Chlorhexidine 0.12% Oral Sol 480 ml Bot PO SCH ×2 (11:05→18:15)
--- NOTE | 2017-04-28 11:19 | CP.PCM.PN ---
<Cher Cordova - Last Filed: 04/28/17 16:07> Subjective - Date & Time of Evaluation Date of Evaluation: 04/28/17 Time of Evaluation: 11:16 - Subjective Subjective: Hospitalist Service Progress Note: Patient seen and examined at bedside. Per nursing, no acute events overnight. Patient is doing well, speech often times is unclear. Patient follows commands, able to move L sided extremities. This morning he had purposeful movement of the right arm. Offers no complaints at this time. Denies headaches, dizziness, cp, palpitations, sob, abdominal pain, urinary symptoms. Objective - Vital Signs/Intake and Output Vital Signs (last 24 hours): Temp Pulse Resp BP Pulse Ox 97.6 F 85 20 154/98 H 95 04/28/17 06:00 04/28/17 10:49 04/28/17 06:00 04/28/17 10:49 04/28/17 06:00 Intake and Output: 04/28/17 04/28/17 06:59 18:59 Intake Total 480 Output Total 1100 Balance -620 - Medications Medications: Current Medications Amlodipine Besylate (Norvasc) 5 mg PO DAILY [facility] Last Admin: 04/28/17 10:49 Dose: 5 mg Aspirin (Aspirin Chewable) 81 mg PO DAILY [facility] Last Admin: 04/28/17 11:04 Dose: 81 mg Atorvastatin Calcium (Lipitor) 20 mg PO DIN [facility] Last Admin: 04/27/17 17:29 Dose: 20 mg Chlorhexidine Gluconate (Peridex) 15 ml PO BID [facility] Last Admin: 04/28/17 11:05 Dose: Not Given Clopidogrel Bisulfate (Plavix) 75 mg PO DAILY [facility] Last Admin: 04/28/17 10:48 Dose: 75 mg Docusate Sodium (Colace Liquid) 100 mg PO TID [facility] Last Admin: 04/28/17 11:04 Dose: 100 mg Folic Acid (Folic Acid) 1 mg PO DAILY [facility] Last Admin: 04/28/17 10:47 Dose: 1 mg Guaifenesin/Dextromethorphan (Robitussin Dm) 5 ml PO Q4H PRN PRN Reason: Cough Sodium Chloride (Sodium Chloride 0.9%) 1,000 mls @ 100 mls/hr IV .Q10H [facility] Last Admin: 04/28/17 06:46 Dose: 100 mls/hr Meropenem 1g/NS 100mL IVPB (Meropenem 1g/Ns 100ml Ivpb) 1 gm in 100 mls @ 100 mls/hr IVPB Q8 [facility] PRN Reason: Protocol Stop: 05/03/17 14:01 Last Admin: 04/28/17 06:46 Dose: 100 mls/hr Pantoprazole Sodium (Protonix Inj) 40 mg IVP DAILY [facility] Last Admin: 04/28/17 10:55 Dose: 40 mg Quetiapine Fumarate (Seroquel) 12.5 mg PO BID [facility] PRN Reason: Protocol Last Admin: 04/28/17 10:47 Dose: 12.5 mg Thiamine HCl (Vitamin B1 Tab) 50 mg PO DAILY [facility] Last Admin: 04/28/17 11:05 Dose: 50 mg Warfarin Sodium (Coumadin) 5 mg PO 1800 [facility] PRN Reason: Protocol Last Admin: 04/27/17 17:28 Dose: 5 mg - Labs Labs: 04/28/17 06:51 04/28/17 06:51 PT 22.8 Seconds (9.9-11.8) H 04/28/17 06:51 INR 2.11 (0.93-1.08) H 04/28/17 06:51 APTT 37.1 Seconds (23.7-30.8) H 04/28/17 06:51 - Constitutional Appears: Well - Head Exam Head Exam: ATRAUMATIC, NORMAL INSPECTION - Eye Exam Eye Exam: EOMI, Normal appearance Pupil Exam: NORMAL ACCOMODATION - ENT Exam ENT Exam: Mucous Membranes Moist - Neck Exam Neck Exam: Full ROM - Respiratory Exam Respiratory Exam: Clear to Ausculation Bilateral, NORMAL BREATHING PATTERN. absent: Rales, Rhonchi, Wheezes - Cardiovascular Exam Cardiovascular Exam: REGULAR RHYTHM, +S1, +S2 - GI/Abdominal Exam GI & Abdominal Exam: Soft. absent: Guarding, Rigid, Tenderness - Rectal Exam Rectal Exam: Deferred - Exam Additional comments: Kenney in draining urine - Back Exam Back Exam: NORMAL INSPECTION - Neurological Exam Neurological Exam: Alert, Awake Neuro motor strength exam: Left Upper Extremity: 4, Right Upper Extremity: 3, Left Lower Extremity: 4, Right Lower Extremity: 0 - Psychiatric Exam Psychiatric exam: Normal Affect, Normal Mood - Skin Skin Exam: Dry, Normal Color, Warm Assessment and Plan - Assessment and Plan (Free Text) Assessment: 52Y M with PMH polysubstance abuse, HTN, HLD, polycythemia vera who was recently admitted to [facility] for L MCA CVA and L carotid stenosis of 100% who was d/c home on 04/17/17 and found unresponsive as per family. Family suspected overdose on methadone, patient was intubated and sedated. Head CT showed questionable L posterior parietal subarachnoid hemmorhage. MRI of brain showed multifocal acute ischemic changes in L frontal, parietal and occipital matter with subacute ischemia in R frontal lobe, as well as limited diffusion in L basal ganglia and temporal cortex. This MRI findings are consistent with cardioembolic stroke. Plan: 1. Acute CVA, Hx of Ischemic CVA with lesion of left MCA superior division - With Broca's aphasia - MRI showing acute ischemic changes within L frontal, parietal, and occipital lobe, embolic in nature - Echo limited study: LVEF normal, thickened mitral valve, aortic valve calcified - Continue Lipitor 20mg daily - Continue ASA and Plavix - Continue Coumadin; Monitor INR - Diet to puree and thin liquid per speech recommendation - Aspiration precautions - Cardiology consulted, f/u recommendations - Neurology consulted, follow up recommendations - PT recommending AUR/ZIGGY for disposition 2. Acute respiratory failure in the setting of severe sepsis 2/2 aspiration pneumonia - Improving, afebrile - Currently on Merrem (day 5) - Legionella and s pneumo negative - Blood cx from admission growing gram positive cocci/coag negative staph ( likely contaminant) - Repeat Blood cx showing no growth after 3 days - ID consulted, F/U recommendations - Speech eval/ PT eval/ OT eval 3. Abnormalities on Abdominal Ultrasound - CBD dilation approximately 10 mm - follow up with GI recs - MRCP ordered- read appreciated, as per GI no acute intervention needed at this time - GI recommends outpatient EUS to r/o small mass lesion 4. Methadone and Opioid abuse - S/P narcan in the field - UTOX positive for benzos and methadone - Hep panel negative - Continue Seroquel BID - Psych consulted, f/u recommendations 5. Hypertension - Continue Norvasc 10mg daily 6. Testicular Cyst -US showing small L hydrocele, Left sided varicocele, B/L epididymal cysts and 3mm L testicular calcification 7. Hx of polycythemia vera -Continue to monitor GI/DVT PPX - Protonix - Coumadin <Rangasamy,Ajantha - Last Filed: 04/28/17 18:07> Objective - Vital Signs/Intake and Output Vital Signs (last 24 hours): Temp Pulse Resp BP Pulse Ox 97.6 F 85 20 154/98 H 95 04/28/17 06:00 04/28/17 10:49 04/28/17 06:00 04/28/17 10:49 04/28/17 06:00 Intake and Output: 04/28/17 04/28/17 06:59 18:59 Intake Total 480 480 Output Total 1100 1100 Balance -620 -620 - Medications Medications: Current Medications Amlodipine Besylate (Norvasc) 10 mg PO DAILY [facility] Aspirin (Aspirin Chewable) 81 mg PO DAILY [facility] Last Admin: 04/28/17 11:04 Dose: 81 mg Atorvastatin Calcium (Lipitor) 20 mg PO DIN [facility] Last Admin: 04/27/17 17:29 Dose: 20 mg Chlorhexidine Gluconate (Peridex) 15 ml PO BID [facility] Last Admin: 04/28/17 11:05 Dose: Not Given Docusate Sodium (Colace Liquid) 100 mg PO TID [facility] Last Admin: 04/28/17 14:12 Dose: Not Given Folic Acid (Folic Acid) 1 mg PO DAILY [facility] Last Admin: 04/28/17 10:47 Dose: 1 mg Guaifenesin/Dextromethorphan (Robitussin Dm) 5 ml PO Q4H PRN PRN Reason: Cough Sodium Chloride (Sodium Chloride 0.9%) 1,000 mls @ 100 mls/hr IV .Q10H [facility] Last Admin: 04/28/17 06:46 Dose: 100 mls/hr Meropenem 1g/NS 100mL IVPB (Meropenem 1g/Ns 100ml Ivpb) 1 gm in 100 mls @ 100 mls/hr IVPB Q8 [facility] PRN Reason: Protocol Stop: 05/03/17 14:01 Last Admin: 04/28/17 14:12 Dose: 100 mls/hr Pantoprazole Sodium (Protonix Inj) 40 mg IVP DAILY [facility] Last Admin: 04/28/17 10:55 Dose: 40 mg Quetiapine Fumarate (Seroquel) 12.5 mg PO BID [facility] PRN Reason: Protocol Last Admin: 04/28/17 10:47 Dose: 12.5 mg Thiamine HCl (Vitamin B1 Tab) 100 mg PO DAILY [facility] Warfarin Sodium (Coumadin) 3 mg PO 1800 [facility] PRN Reason: Protocol - Labs Labs: 04/28/17 06:51 04/28/17 06:51 PT 22.8 Seconds (9.9-11.8) H 04/28/17 06:51 INR 2.11 (0.93-1.08) H 04/28/17 06:51 APTT 37.1 Seconds (23.7-30.8) H 04/28/17 06:51 Attending/Attestation - Attestation I have personally seen and examined this patient.: Yes I have fully participated in the care of the patient.: Yes I have reviewed all pertinent clinical information, including history, physical exam and plan: Yes Notes (Text): 04/28/17 18:00 Attending note; Patient seen and examined with resident. Patient is alert, awake. Follows few simple commands . patient has expressive aphasia. Patient is a 52 year old male with history of methadone/opioid abuse, recent ischemic CVA (left MCA lesion) with broca's aphasia who was brought for evaluation of AMS, hypoxemic respiratory failure and aspiration pneumonia. Upon admission, CT head negative. CTA from [place] revealed 100% occlusion of left ICA. s/p extubation. patient is doing well. MRI brain was done which showed acute and subacute infarcts embolic in nature. Patient is currently on asa, lipitor and coumadin. INR is therapeutic. Continue speech/language therapy. US abdomen was done which showed CBD dilatation 10 mm and intrahepatic biliary dilatation. He als has elevated alk phos. There is no RUQ tenderness. MRCP revealed filling defects suggesting choledocholithiasis. GI evaluation appreciated .needs outpatient follow-up . PT evaluation appreciated. direct care worker evaluation appreciated. Waiting for rehab placement. Upon discharge patient will follow up with PMD of choice.
--- NOTE | 2017-04-28 14:30 | PN ---
SUBJECTIVE: The patient is awake and knows that he is in hospital. PHYSICAL EXAMINATION: VITAL SIGNS: Blood pressure 154/98, heart rate 85, temperature 97.6, respirations 20. HEENT: No pallor or icterus. CHEST: Clear. HEART: S1 and S2 regular. EXTREMITIES: No edema. LABORATORY DATA: Today's hemoglobin and hematocrit, white count and platelet count are within normal limits. Today's SMA-7 is within normal limit except for creatinine of 0.6. MRCP, mildly dilated common bile duct, measuring up to 11 mm, suspicion for small filling defect in the common bile duct, may represent small choledocholithiasis. Distended gallbladder contains small gallstones without evidence of acute cholecystitis, [id number] splenomegaly. HIDA scan, the gallbladder visualized, no evidence of acute cholecystitis. ASSESSMENT: 1. Status post cerebrovascular accident. 2. Totally occluded left internal carotid artery. RECOMMENDATIONS: Continue aspirin 81 mg once a day, Lipitor 20 mg once a day, Norvasc 5 mg once a day, Plavix 75 mg once a day. The patient did receive Coumadin 5 mg yesterday. Today's INR is 2.11. Fuad Fuentes MD
--- NOTE | 2017-04-28 18:53 | CP.PCM.PN ---
Subjective - Date & Time of Evaluation Date of Evaluation: 04/28/17 Time of Evaluation: 12:30 - Subjective Subjective: No fevers, not in distress. Objective - Vital Signs/Intake and Output Vital Signs (last 24 hours): Temp Pulse Resp BP Pulse Ox 97.6 F 85 20 154/98 H 95 04/28/17 06:00 04/28/17 10:49 04/28/17 06:00 04/28/17 10:49 04/28/17 06:00 Intake and Output: 04/28/17 04/28/17 06:59 18:59 Intake Total 480 Output Total 1100 Balance -620 - Medications Medications: Current Medications Amlodipine Besylate (Norvasc) 5 mg PO DAILY [facility] Last Admin: 04/28/17 10:49 Dose: 5 mg Aspirin (Aspirin Chewable) 81 mg PO DAILY [facility] Last Admin: 04/28/17 11:04 Dose: 81 mg Atorvastatin Calcium (Lipitor) 20 mg PO DIN [facility] Last Admin: 04/27/17 17:29 Dose: 20 mg Chlorhexidine Gluconate (Peridex) 15 ml PO BID [facility] Last Admin: 04/28/17 11:05 Dose: Not Given Clopidogrel Bisulfate (Plavix) 75 mg PO DAILY [facility] Last Admin: 04/28/17 10:48 Dose: 75 mg Docusate Sodium (Colace Liquid) 100 mg PO TID [facility] Last Admin: 04/28/17 11:04 Dose: 100 mg Folic Acid (Folic Acid) 1 mg PO DAILY [facility] Last Admin: 04/28/17 10:47 Dose: 1 mg Guaifenesin/Dextromethorphan (Robitussin Dm) 5 ml PO Q4H PRN PRN Reason: Cough Sodium Chloride (Sodium Chloride 0.9%) 1,000 mls @ 100 mls/hr IV .Q10H [facility] Last Admin: 04/28/17 06:46 Dose: 100 mls/hr Meropenem 1g/NS 100mL IVPB (Meropenem 1g/Ns 100ml Ivpb) 1 gm in 100 mls @ 100 mls/hr IVPB Q8 [facility] PRN Reason: Protocol Stop: 05/03/17 14:01 Last Admin: 04/28/17 06:46 Dose: 100 mls/hr Pantoprazole Sodium (Protonix Inj) 40 mg IVP DAILY [facility] Last Admin: 04/28/17 10:55 Dose: 40 mg Quetiapine Fumarate (Seroquel) 12.5 mg PO BID [facility] PRN Reason: Protocol Last Admin: 04/28/17 10:47 Dose: 12.5 mg Thiamine HCl (Vitamin B1 Tab) 50 mg PO DAILY [facility] Last Admin: 04/28/17 11:05 Dose: 50 mg Warfarin Sodium (Coumadin) 5 mg PO 1800 [facility] PRN Reason: Protocol Last Admin: 04/27/17 17:28 Dose: 5 mg - Labs Labs: 04/28/17 06:51 04/28/17 06:51 PT 22.8 Seconds (9.9-11.8) H 04/28/17 06:51 INR 2.11 (0.93-1.08) H 04/28/17 06:51 APTT 37.1 Seconds (23.7-30.8) H 04/28/17 06:51 - Constitutional Appears: Non-toxic, No Acute Distress - ENT Exam ENT Exam: Mucous Membranes Moist - Neck Exam Neck Exam: absent: Meningismus - Respiratory Exam Respiratory Exam: Decreased Breath Sounds - Cardiovascular Exam Cardiovascular Exam: +S1, +S2 - GI/Abdominal Exam GI & Abdominal Exam: Soft. absent: Tenderness Assessment and Plan - Assessment and Plan (Free Text) Plan: Assessment S/P systemic Inflammatory response syndrome probably from toxic metabolic encephalopathy, S/P VDRF R/O choledocholelithiasis on top of cholelithiasis with dilated common bile duct without evidence of cholangitis currently chronic alcohol and opiate use Coagulase negative staph in 1 out of 4 bottles, probably contamination Plan Cultures are negative - liver enzymes, alk phos and total bilirubin are normal, WBC count has normalized, no fevers for more than 48 hours - will d/c Merrem today and monitor; reviewed GI recommendations and no intervention currently needed will follow clinically
[2017-04-29 07:15] LABS: BASO # 0.06 K/mm3 (0.0-2.0); BASO % 0.9 % (0.0-3.0); EOS # 0.2 (0.0-0.7); EOS % 3.6 % (1.5-5.0); GRAN # 3.79 (1.4-6.5); GRAN % 59.1 % (50.0-68.0); HEMATOCRIT 43.8 % (42.0-52.0); LYMPH # 1.7 (1.2-3.4); LYMPH % 26.9 % (22.0-35.0); MEAN CORPUSCULAR HEMOGLOBIN 33.8 pg (25.0-35.0); MEAN CORPUSCULAR HGB CONC 34.5 g/dl (31.0-37.0); MEAN PLATELET VOLUME 10.9 fl (7.0-11.0); MONO # 0.6 (0.1-0.6); MONO % 9.5 % (1.0-6.0); RED CELL DISTRIBUTION WIDTH 11.9 % (11.5-14.5); WHITE BLOOD COUNT 6.4 10^3/ul (4.5-11.0)
[2017-04-29 07:20] LABS: INR 2.48 (0.93-1.08); PARTIAL THROMBOPLASTIN TIME 42.2 Seconds (23.7-30.8)
[2017-04-29 07:33] LABS: ALKALINE PHOSPHATASE 118 U/L (38-126); ALT/SGPT 41 U/L (7-56); AST/SGOT 42 U/L (17-59); BILIRUBIN,TOTAL 0.7 mg/dL (0.2-1.3); BLOOD UREA NITROGEN 10 mg/dL (7-21); CALCIUM 9.5 mg/dL (8.4-10.5); CARBON DIOXIDE 31 mmol/L (21-33); CHLORIDE 101 mmol/L (98-107); GFR AFRICAN-AMERICAN > 60; GLUCOSE,RANDOM 101 mg/dL (70-110); SODIUM 142 mmol/L (132-148)
[2017-04-29] MEDS: Chlorhexidine 0.12% Oral Sol 480 ml Bot PO SCH ×2 (09:19→17:51)
--- NOTE | 2017-04-29 11:07 | CP.PCM.PN ---
<Cher Cordova - Last Filed: 04/29/17 13:33> Subjective - Date & Time of Evaluation Date of Evaluation: 04/29/17 Time of Evaluation: 11:05 - Subjective Subjective: Hospitalist Service Progress Note: Patient seen and examined at bedside. Per nursing no acute events overnight. Patient is doing well, tolerating diet. Moving R arm purposefully. Following commands. Speech still incoherent at times. Denies headaches, dizziness, cp, palpitations, sob, abdominal pain, urinary symptoms. Objective - Vital Signs/Intake and Output Vital Signs (last 24 hours): Temp Pulse Resp BP Pulse Ox 98.2 F 84 20 110/68 94 L 04/29/17 08:26 04/29/17 08:26 04/29/17 08:26 04/29/17 09:16 04/29/17 08:26 Intake and Output: 04/29/17 04/29/17 06:59 18:59 Intake Total 360 Output Total 800 Balance -440 - Medications Medications: Current Medications Amlodipine Besylate (Norvasc) 10 mg PO DAILY [facility] Last Admin: 04/29/17 09:16 Dose: 10 mg Aspirin (Aspirin Chewable) 81 mg PO DAILY [facility] Last Admin: 04/29/17 09:19 Dose: 81 mg Atorvastatin Calcium (Lipitor) 20 mg PO DIN [facility] Last Admin: 04/28/17 18:14 Dose: 20 mg Chlorhexidine Gluconate (Peridex) 15 ml PO BID [facility] Last Admin: 04/29/17 09:19 Dose: Not Given Docusate Sodium (Colace Liquid) 100 mg PO TID [facility] Last Admin: 04/29/17 09:16 Dose: 100 mg Folic Acid (Folic Acid) 1 mg PO DAILY [facility] Last Admin: 04/29/17 09:16 Dose: 1 mg Guaifenesin/Dextromethorphan (Robitussin Dm) 5 ml PO Q4H PRN PRN Reason: Cough Pantoprazole Sodium (Protonix Inj) 40 mg IVP DAILY [facility] Last Admin: 04/29/17 09:16 Dose: 40 mg Quetiapine Fumarate (Seroquel) 12.5 mg PO BID [facility] PRN Reason: Protocol Last Admin: 04/29/17 09:19 Dose: 12.5 mg Thiamine HCl (Vitamin B1 Tab) 100 mg PO DAILY [facility] Last Admin: 04/29/17 09:16 Dose: 100 mg Warfarin Sodium (Coumadin) 3 mg PO 1800 [facility] PRN Reason: Protocol Last Admin: 04/28/17 18:14 Dose: 3 mg - Labs Labs: 04/29/17 07:03 04/29/17 07:03 PT 26.8 Seconds (9.9-11.8) H 04/29/17 07:03 INR 2.48 (0.93-1.08) H 04/29/17 07:03 APTT 42.2 Seconds (23.7-30.8) H 04/29/17 07:03 - Constitutional Appears: Non-toxic, No Acute Distress - Head Exam Head Exam: ATRAUMATIC, NORMAL INSPECTION - Eye Exam Eye Exam: EOMI, Normal appearance Pupil Exam: NORMAL ACCOMODATION - ENT Exam ENT Exam: Mucous Membranes Moist - Neck Exam Neck Exam: Full ROM - Respiratory Exam Respiratory Exam: Clear to Ausculation Bilateral, NORMAL BREATHING PATTERN. absent: Rhonchi, Wheezes, Respiratory Distress - Cardiovascular Exam Cardiovascular Exam: REGULAR RHYTHM, +S1, +S2 - GI/Abdominal Exam GI & Abdominal Exam: Soft. absent: Guarding, Rigid, Tenderness, Rebound - Extremities Exam Additional comments: +SCDs - Back Exam Back Exam: NORMAL INSPECTION - Neurological Exam Neurological Exam: Alert, Awake, Oriented x3 Neuro motor strength exam: Left Upper Extremity: 5, Right Upper Extremity: 3, Left Lower Extremity: 5, Right Lower Extremity: 0 - Psychiatric Exam Psychiatric exam: Normal Affect, Normal Mood - Skin Skin Exam: Dry, Normal Color, Warm Assessment and Plan - Assessment and Plan (Free Text) Assessment: 52Y M with PMH polysubstance abuse, HTN, HLD, polycythemia vera who was recently admitted to [facility] for L MCA CVA and L carotid stenosis of 100% who was d/c home on 04/17/17 and found unresponsive as per family. Family suspected overdose on methadone, patient was intubated and sedated. Head CT showed questionable L posterior parietal subarachnoid hemmorhage. MRI of brain showed multifocal acute ischemic changes in L frontal, parietal and occipital matter with subacute ischemia in R frontal lobe, as well as limited diffusion in L basal ganglia and temporal cortex. This MRI findings are consistent with cardioembolic stroke. Plan: 1. Acute CVA, Hx of Ischemic CVA with lesion of left MCA superior division - With expressive aphasia - MRI showed acute ischemic changes within L frontal, parietal, and occipital lobe, embolic in nature - CT head/neck showing 100% occlusion of L ICA - Echo limited study: LVEF normal, thickened mitral valve, aortic valve calcified - Continue Lipitor 20mg daily - Continue ASA; Plavix discontinued - Continue Coumadin 3mg daily; INR therapeutic - Diet puree and thin liquid per speech recommendation - Aspiration precautions - Cardiology consulted, f/u recommendations - Neurology consulted, follow up recommendations - PT recommending AUR/ZIGGY for disposition; will await placement 2. Acute respiratory failure in the setting of severe sepsis 2/2 aspiration pneumonia - Improving, afebrile - No leukocytosis - Completed Merrem (5 day course) - Legionella and s pneumo negative - Blood cx from admission growing gram positive cocci/coag negative staph ( likely contaminant) - Repeat Blood cx showing no growth after 3 days - ID consulted, F/U recommendations - Speech eval/ PT eval/ OT eval 3. Abnormalities on Abdominal Ultrasound - CBD dilation approximately 10 mm - follow up with GI recs - MRCP ordered- read appreciated, as per GI no acute intervention needed at this time - GI recommends outpatient EUS to r/o small mass lesion 4. Methadone and Opioid abuse - S/P narcan in the field - UTOX positive for benzos and methadone - Hep panel negative - Continue Seroquel BID - Psych consulted, f/u recommendations 5. Hypertension - Continue Norvasc 10mg daily 6. Testicular Cyst -US showing small L hydrocele, Left sided varicocele, B/L epididymal cysts and 3mm L testicular calcification 7. Hx of polycythemia vera -Continue to monitor GI/DVT PPX - Protonix - Coumadin <RangasamyAjantha - Last Filed: 04/29/17 15:02> Objective - Vital Signs/Intake and Output Vital Signs (last 24 hours): Temp Pulse Resp BP Pulse Ox 98.2 F 84 20 110/68 94 L 04/29/17 08:26 04/29/17 08:26 04/29/17 08:26 04/29/17 09:16 04/29/17 08:26 Intake and Output: 04/29/17 04/29/17 06:59 18:59 Intake Total 360 690 Output Total 800 450 Balance -440 240 - Medications Medications: Current Medications Amlodipine Besylate (Norvasc) 10 mg PO DAILY [facility] Last Admin: 04/29/17 09:16 Dose: 10 mg Aspirin (Aspirin Chewable) 81 mg PO DAILY [facility] Last Admin: 04/29/17 09:19 Dose: 81 mg Atorvastatin Calcium (Lipitor) 20 mg PO DIN [facility] Last Admin: 04/28/17 18:14 Dose: 20 mg Chlorhexidine Gluconate (Peridex) 15 ml PO BID [facility] Last Admin: 04/29/17 09:19 Dose: Not Given Folic Acid (Folic Acid) 1 mg PO DAILY [facility] Last Admin: 04/29/17 09:16 Dose: 1 mg Guaifenesin/Dextromethorphan (Robitussin Dm) 5 ml PO Q4H PRN PRN Reason: Cough Pantoprazole Sodium (Protonix Inj) 40 mg IVP DAILY [facility] Last Admin: 04/29/17 09:16 Dose: 40 mg Quetiapine Fumarate (Seroquel) 12.5 mg PO BID [facility] PRN Reason: Protocol Last Admin: 04/29/17 09:19 Dose: 12.5 mg Thiamine HCl (Vitamin B1 Tab) 100 mg PO DAILY [facility] Last Admin: 04/29/17 09:16 Dose: 100 mg Warfarin Sodium (Coumadin) 3 mg PO 1800 [facility] PRN Reason: Protocol Last Admin: 04/28/17 18:14 Dose: 3 mg - Labs Labs: 04/29/17 07:03 04/29/17 07:03 PT 26.8 Seconds (9.9-11.8) H 04/29/17 07:03 INR 2.48 (0.93-1.08) H 04/29/17 07:03 APTT 42.2 Seconds (23.7-30.8) H 04/29/17 07:03 Attending/Attestation - Attestation I have personally seen and examined this patient.: Yes I have fully participated in the care of the patient.: Yes I have reviewed all pertinent clinical information, including history, physical exam and plan: Yes Notes (Text): 04/29/17 15:01 Attending note; Patient seen and examined with resident. Patient is a 52 year old male with history of methadone/opioid abuse, recent ischemic CVA (left MCA lesion) with broca's aphasia who was brought for evaluation of AMS, hypoxemic respiratory failure and aspiration pneumonia. Upon admission, CT head negative. CTA from [place] revealed 100% occlusion of left ICA. s/p extubation. patient is doing well. Patient is alert, awake. Follows few simple commands . patient has expressive aphasia. able to move Right arm better than yesterday. MRI brain was done which showed acute and subacute infarcts embolic in nature. Patient is currently on asa, lipitor and coumadin. INR is therapeutic. Continue speech/language therapy. US abdomen was done which showed CBD dilatation 10 mm and intrahepatic biliary dilatation. He als has elevated alk phos. There is no RUQ tenderness. MRCP revealed filling defects suggesting choledocholithiasis. GI evaluation appreciated .needs outpatient follow-up . PT evaluation appreciated. respite worker evaluation appreciated. Waiting for rehab placement. Upon discharge patient will follow up with PMD of choice.
[2017-04-30] MEDS ORDERED: Pantoprazole 40 mg Susp UD PO SCH (06:00)
[2017-04-30 07:34] LABS: INR 2.76 (0.93-1.08); PARTIAL THROMBOPLASTIN TIME 45.4 Seconds (23.7-30.8)
[2017-04-30 08:01] LABS: BASO # 0.07 K/mm3 (0.0-2.0); BASO % 1.1 % (0.0-3.0); EOS # 0.3 (0.0-0.7); EOS % 3.9 % (1.5-5.0); GRAN # 3.56 (1.4-6.5); GRAN % 55.6 % (50.0-68.0); HEMATOCRIT 44.4 % (42.0-52.0); LYMPH # 1.9 (1.2-3.4); LYMPH % 29.7 % (22.0-35.0); MEAN CELL VOLUME 98.7 fl (80.0-105.0); MEAN CORPUSCULAR HEMOGLOBIN 33.6 pg (25.0-35.0); MONO # 0.6 (0.1-0.6); MONO % 9.7 % (1.0-6.0); RED CELL DISTRIBUTION WIDTH 11.9 % (11.5-14.5); WHITE BLOOD COUNT 6.4 10^3/ul (4.5-11.0)
[2017-04-30 08:19] LABS: BLOOD UREA NITROGEN 15 mg/dL (7-21); CALCIUM 9.6 mg/dL (8.4-10.5); CARBON DIOXIDE 31 mmol/L (21-33); CHLORIDE 100 mmol/L (95-110); GFR AFRICAN-AMERICAN > 60; GLUCOSE,RANDOM 102 mg/dL (70-110); MAGNESIUM 1.8 mg/dL (1.7-2.2); PHOSPHOROUS 5.5 mg/dL (2.5-4.5); SODIUM 139 mmol/L (132-148)
[2017-04-30] MEDS: Chlorhexidine 0.12% Oral Sol 480 ml Bot PO SCH ×2 (12:17→18:50)
--- NOTE | 2017-04-30 16:44 | CP.PCM.PN ---
<Cher Cordova - Last Filed: 04/30/17 16:46> Subjective - Date & Time of Evaluation Date of Evaluation: 04/30/17 Time of Evaluation: 16:41 - Subjective Subjective: Hospitalist Service Progress Note: Patient seen and examined at bedside. Per nursing no acute events overnight. Patient is doing well, speech is improving. Still having purposeful movement of R arm. Offers no complaints at this time. Denies headaches, dizziness, cp, palpitations, sob, abdominal pain, urinary symptoms. Objective - Vital Signs/Intake and Output Vital Signs (last 24 hours): Temp Pulse Resp BP Pulse Ox 98.3 F 85 22 134/92 H 94 L 04/30/17 08:27 04/30/17 08:27 04/30/17 08:27 04/30/17 08:59 04/30/17 08:27 Intake and Output: 04/30/17 04/30/17 06:59 18:59 Intake Total 600 240 Output Total 300 550 Balance 300 -310 - Medications Medications: Current Medications Amlodipine Besylate (Norvasc) 10 mg PO DAILY [facility] Last Admin: 04/30/17 08:59 Dose: 10 mg Aspirin (Aspirin Chewable) 81 mg PO DAILY [facility] Last Admin: 04/30/17 08:59 Dose: 81 mg Atorvastatin Calcium (Lipitor) 20 mg PO DIN [facility] Last Admin: 04/29/17 17:38 Dose: 20 mg Chlorhexidine Gluconate (Peridex) 15 ml PO BID [facility] Last Admin: 04/30/17 12:17 Dose: Not Given Folic Acid (Folic Acid) 1 mg PO DAILY [facility] Last Admin: 04/30/17 08:59 Dose: 1 mg Guaifenesin/Dextromethorphan (Robitussin Dm) 5 ml PO Q4H PRN PRN Reason: Cough Pantoprazole Sodium (Protonix Susp) 40 mg PO 0600 [facility] Quetiapine Fumarate (Seroquel) 12.5 mg PO BID [facility] PRN Reason: Protocol Last Admin: 04/30/17 08:59 Dose: 12.5 mg Thiamine HCl (Vitamin B1 Tab) 100 mg PO DAILY [facility] Last Admin: 04/30/17 08:59 Dose: 100 mg Warfarin Sodium (Coumadin) 3 mg PO 1800 [facility] PRN Reason: Protocol Last Admin: 04/29/17 17:38 Dose: 3 mg - Labs Labs: 04/30/17 07:45 04/30/17 07:45 PT 29.8 Seconds (9.9-11.8) H 04/30/17 07:00 INR 2.76 (0.93-1.08) H 04/30/17 07:00 APTT 45.4 Seconds (23.7-30.8) H 04/30/17 07:00 - Constitutional Appears: Non-toxic, No Acute Distress - Head Exam Head Exam: ATRAUMATIC, NORMAL INSPECTION - Eye Exam Eye Exam: EOMI, Normal appearance Pupil Exam: NORMAL ACCOMODATION - ENT Exam ENT Exam: Mucous Membranes Moist - Neck Exam Neck Exam: Full ROM - Respiratory Exam Respiratory Exam: Clear to Ausculation Bilateral, NORMAL BREATHING PATTERN. absent: Rales, Rhonchi, Wheezes - Cardiovascular Exam Cardiovascular Exam: REGULAR RHYTHM, +S1, +S2 - GI/Abdominal Exam GI & Abdominal Exam: Soft. absent: Guarding, Rigid, Tenderness - Exam Additional comments: Decker in draining yellow urine - Extremities Exam Extremities Exam: Normal Inspection - Back Exam Back Exam: NORMAL INSPECTION - Neurological Exam Neurological Exam: Alert, Awake, Oriented x3 Neuro motor strength exam: Left Upper Extremity: 3, Right Upper Extremity: 5, Left Lower Extremity: 0, Right Lower Extremity: 5 - Psychiatric Exam Psychiatric exam: Normal Affect, Normal Mood - Skin Skin Exam: Dry, Normal Color, Warm Assessment and Plan - Assessment and Plan (Free Text) Assessment: 52Y M with PMH polysubstance abuse, HTN, HLD, polycythemia vera who was recently admitted to [facility] for L MCA CVA and L carotid stenosis of 100% who was d/c home on 04/17/17 and found unresponsive as per family. Family suspected overdose on methadone, patient was intubated and sedated. Head CT showed questionable L posterior parietal subarachnoid hemmorhage. MRI of brain showed multifocal acute ischemic changes in L frontal, parietal and occipital matter with subacute ischemia in R frontal lobe, as well as limited diffusion in L basal ganglia and temporal cortex. This MRI findings are consistent with cardioembolic stroke. Plan: 1. Acute CVA, Hx of Ischemic CVA with lesion of left MCA superior division - With expressive aphasia - MRI showed acute ischemic changes within L frontal, parietal, and occipital lobe, embolic in nature - CT head/neck showing 100% occlusion of L ICA - Echo limited study: LVEF normal, thickened mitral valve, aortic valve calcified - Continue Lipitor 20mg daily - Continue ASA; Plavix discontinued - Continue Coumadin 3mg daily; INR therapeutic - Diet puree and thin liquid per speech recommendation - Aspiration precautions - Will discontinue decker, f/u voiding trial - Cardiology consulted, f/u recommendations - Neurology consulted, follow up recommendations - PT recommending [facility] for disposition; will await placement 2. Acute respiratory failure in the setting of severe sepsis 2/2 aspiration pneumonia - Improving, afebrile - No leukocytosis - Completed Merrem (5 day course) - Legionella and s pneumo negative - Blood cx from admission growing gram positive cocci/coag negative staph ( likely contaminant) - Repeat Blood cx showing no growth - ID consulted, F/U recommendations - Speech eval/ PT eval/ OT eval 3. Abnormalities on Abdominal Ultrasound - CBD dilation approximately 10 mm - follow up with GI recs - MRCP ordered- read appreciated, as per GI no acute intervention needed at this time - GI recommends outpatient EUS to r/o small mass lesion 4. Methadone and Opioid abuse - S/P narcan in the field - UTOX positive for benzos and methadone - Hep panel negative - Continue Seroquel BID - Psych consulted, f/u recommendations 5. Hypertension - Continue Norvasc 10mg daily 6. Testicular Cyst -US showing small L hydrocele, Left sided varicocele, B/L epididymal cysts and 3mm L testicular calcification 7. Hx of polycythemia vera -Continue to monitor GI/DVT PPX - Protonix - Coumadin <RangasaJemal soaresa - Last Filed: 05/01/17 14:19> Objective - Vital Signs/Intake and Output Vital Signs (last 24 hours): Temp Pulse Resp BP Pulse Ox 98.5 F 77 21 103/83 95 04/30/17 16:00 04/30/17 16:00 04/30/17 16:00 05/01/17 10:53 04/30/17 16:00 Intake and Output: 05/01/17 05/01/17 06:59 18:59 Intake Total 840 Output Total 250 Balance 590 - Medications Medications: Current Medications Amlodipine Besylate (Norvasc) 10 mg PO DAILY [facility] Last Admin: 10/19/17 10:53 Dose: 10 mg Aspirin (Aspirin Chewable) 81 mg PO DAILY [facility] Last Admin: 05/01/17 10:52 Dose: 81 mg Atorvastatin Calcium (Lipitor) 20 mg PO DIN [facility] Last Admin: 04/30/17 18:22 Dose: 20 mg Chlorhexidine Gluconate (Peridex) 15 ml PO BID [facility] Last Admin: 04/30/17 18:50 Dose: Not Given Folic Acid (Folic Acid) 1 mg PO DAILY [facility] Last Admin: 05/01/17 10:52 Dose: 1 mg Guaifenesin/Dextromethorphan (Robitussin Dm) 5 ml PO Q4H PRN PRN Reason: Cough Pantoprazole Sodium (Protonix Susp) 40 mg PO 0600 [facility] Last Admin: 05/01/17 06:56 Dose: 40 mg Quetiapine Fumarate (Seroquel) 12.5 mg PO BID [facility] PRN Reason: Protocol Last Admin: 05/01/17 10:52 Dose: 12.5 mg Thiamine HCl (Vitamin B1 Tab) 100 mg PO DAILY [facility] Last Admin: 05/01/17 10:53 Dose: 100 mg Warfarin Sodium (Coumadin) 3 mg PO 1800 [facility] PRN Reason: Protocol Last Admin: 04/30/17 18:22 Dose: 3 mg - Labs Labs: 05/01/17 07:00 05/01/17 07:00 PT 28.3 SECONDS (9.4-12.5) H 05/01/17 07:14 INR 2.52 (0.93-1.08) H 05/01/17 07:14 APTT 49.1 Seconds (25.1-36.5) H 05/01/17 07:14 Attending/Attestation - Attestation I have personally seen and examined this patient.: Yes I have fully participated in the care of the patient.: Yes I have reviewed all pertinent clinical information, including history, physical exam and plan: Yes Notes (Text): 05/01/17 14:15 Attending note; Patient seen and examined with resident. Patient is a 52 year old male with history of methadone/opioid abuse, recent ischemic CVA (left MCA lesion) with broca's aphasia who was brought for evaluation of AMS, hypoxemic respiratory failure and aspiration pneumonia. Upon admission, CT head negative. CTA from [place] revealed 100% occlusion of left ICA. s/p extubation. patient is doing well. Patient is alert, awake. Follows few simple commands . patient has expressive aphasia. able to move Right arm better than yesterday. not able to move R leg. MRI brain was done which showed acute and subacute infarcts embolic in nature. Patient is currently on asa, lipitor and coumadin. INR is therapeutic. failed decker removal yesterday. continue decker and monitor. Continue speech/language therapy. US abdomen was done which showed CBD dilatation 10 mm and intrahepatic biliary dilatation. He als has elevated alk phos. There is no RUQ tenderness. MRCP revealed filling defects suggesting choledocholithiasis. GI evaluation appreciated .needs outpatient follow-up and EUS. PT evaluation appreciated. thermometer production worker evaluation appreciated. Waiting for rehab placement. Upon discharge patient will follow up with PMD of choice. 05/01/17 14:18
[2017-05-01 07:34] LABS: INR 2.52 (0.93-1.08); PARTIAL THROMBOPLASTIN TIME 49.1 Seconds (25.1-36.5)
[2017-05-01 09:17] LABS: BASO # 0.06 K/mm3 (0.0-2.0); BASO % 0.9 % (0.0-3.0); EOS # 0.2 (0.0-0.7); EOS % 3.1 % (1.5-5.0); GRAN # 3.8 (1.4-6.5); HEMATOCRIT 44.2 % (42.0-52.0); LYMPH # 2.2 (1.2-3.4); LYMPH % 31.9 % (22.0-35.0); MEAN CORPUSCULAR HEMOGLOBIN 33.5 pg (25.0-35.0); MEAN CORPUSCULAR HGB CONC 33.5 g/dl (31.0-37.0); MEAN PLATELET VOLUME 11.6 fl (7.0-11.0); MONO # 0.7 (0.1-0.6); MONO % 10.1 % (1.0-6.0)
[2017-05-01 09:27] LABS: ALB/GLOB RATIO 1.1 (1.1-1.8); ALKALINE PHOSPHATASE 115 U/L (38-126); ALT/SGPT 47 U/L (7-56); AST/SGOT 43 U/L (17-59); BILIRUBIN,TOTAL 0.6 mg/dL (0.2-1.3); BLOOD UREA NITROGEN 23 mg/dL (7-21); CALCIUM 9.8 mg/dL (8.4-10.5); CARBON DIOXIDE 30 mmol/L (21-33); CHLORIDE 101 mmol/L (98-107); GFR AFRICAN-AMERICAN > 60; GLUCOSE,RANDOM 90 mg/dL (70-110); MAGNESIUM 1.9 mg/dL (1.7-2.2); PHOSPHOROUS 5.9 mg/dL (2.5-4.5); POTASSIUM 4.1 mmol/L (3.6-5.0); SODIUM 142 mmol/L (132-148); TOTAL PROTEIN 6.8 g/dL (5.8-8.3)
--- NOTE | 2017-05-01 16:34 | CP.PCM.DIS ---
Provider - Provider Date of Admission: 04/20/17 01:20 Attending physician: Kishor Oglesby MD Consults: ID: Cruz Neurology: Marco Cardiology: Alfredo Time Spent in preparation of Discharge (in minutes): 40 Hospital Course - Lab Results Lab Results: Micro Results 04/24/17 19:16 Blood Blood Culture - Final NO GROWTH AFTER 5 DAYS 04/24/17 19:16 Blood Gram Stain - Final TEST NOT PERFORMED 04/24/17 19:16 Blood Blood Culture - Final NO GROWTH AFTER 5 DAYS 04/24/17 19:16 Blood Gram Stain - Final TEST NOT PERFORMED 04/23/17 06:10 Blood-Venous Blood Culture - Final NO GROWTH AFTER 5 DAYS 04/23/17 06:10 Blood-Venous Gram Stain - Final TEST NOT PERFORMED 04/23/17 05:50 Blood-Venous Blood Culture - Final NO GROWTH AFTER 5 DAYS 04/23/17 05:50 Blood-Venous Gram Stain - Final TEST NOT PERFORMED 04/20/17 03:30 Naris MRSA Culture (Admit) - Final MRSA NOT DETECTED Most Recent Lab Values WBC 7.0 10^3/ul (4.5-11.0) 05/01/17 07:00 RBC 4.42 10^6/uL (3.5-6.1) 05/01/17 07:00 Hgb 14.8 g/dL (14.0-18.0) 05/01/17 07:00 Hct 44.2 % (42.0-52.0) 05/01/17 07:00 MCV 100.0 fl (80.0-105.0) 05/01/17 07:00 MCH 33.5 pg (25.0-35.0) 05/01/17 07:00 MCHC 33.5 g/dl (31.0-37.0) 05/01/17 07:00 RDW 12.0 % (11.5-14.5) 05/01/17 07:00 Plt Count 221 10^3/uL (120.0-450.0) 05/01/17 07:00 MPV 11.6 fl (7.0-11.0) H 05/01/17 07:00 Gran % 54.0 % (50.0-68.0) 05/01/17 07:00 Lymph % (Auto) 31.9 % (22.0-35.0) 05/01/17 07:00 [place] % (Auto) 10.1 % (1.0-6.0) H 05/01/17 07:00 Eos % (Auto) 3.1 % (1.5-5.0) 05/01/17 07:00 Baso % (Auto) 0.9 % (0.0-3.0) 05/01/17 07:00 Gran # 3.80 (1.4-6.5) 05/01/17 07:00 Lymph # 2.2 (1.2-3.4) 05/01/17 07:00 [place] # 0.7 (0.1-0.6) H 05/01/17 07:00 Eos # 0.2 (0.0-0.7) 05/01/17 07:00 Baso # 0.06 K/mm3 (0.0-2.0) 05/01/17 07:00 PT 28.3 SECONDS (9.4-12.5) H 05/01/17 07:14 INR 2.52 (0.93-1.08) H 05/01/17 07:14 APTT 49.1 Seconds (25.1-36.5) H 05/01/17 07:14 pCO2 44 mm/Hg (35-45) 04/24/17 05:00 pO2 80.0 mm/Hg (80-100) 04/24/17 05:00 HCO3 24.9 mmol/L (21-28) 04/24/17 05:00 ABG pH 7.36 (7.35-7.45) 04/24/17 05:00 ABG Total CO2 26.3 mmol.L (22-28) 04/24/17 05:00 ABG O2 Saturation 97.2 % (95-98) 04/24/17 05:00 ABG O2 Content 18.6 ML/dl (15-23) 04/22/17 05:24 ABG Base Excess -0.8 mmol/L (-2.0-3.0) 04/24/17 05:00 ABG Hemoglobin 13.7 g/dL (11.7-17.4) 04/22/17 05:24 ABG Carboxyhemoglobin 1.4 % (0.5-1.5) 04/22/17 05:24 POC ABG HHb (Measured) 1.4 % (0-5) 04/22/17 05:24 ABG Methemoglobin 1.2 % (0.0-3.0) 04/22/17 05:24 ABG O2 Capacity 18.9 mL/dl (16-24) 04/22/17 05:24 ABG Potassium 2.7 mmol/L (3.6-5.2) L 04/24/17 05:00 VBG pH 7.41 (7.32-7.43) 04/20/17 05:00 VBG pCO2 45.0 (40-60) 04/20/17 05:00 VBG HCO3 28.5 mmol/l (21-28) H 04/20/17 05:00 VBG Total CO2 29.9 mmol.L (22-28) H 04/20/17 05:00 VBG O2 Sat (Calc) 100.0 % (40-65) H 04/20/17 05:00 VBG Base Excess 3.1 mmol/L (0.0-2.0) H 04/20/17 05:00 VBG Potassium 4.3 mmol/L (3.6-5.2) 04/20/17 05:00 Hgb O2 Saturation 96.0 % (95.0-98.0) 04/22/17 05:24 Sodium 144.0 mmol/L (132-148) 04/24/17 05:00 Chloride 110.0 mmol/L (98-107) H 04/24/17 05:00 Glucose 110 mg/dl (75-110) 04/24/17 05:00 Lactate 0.7 mmol/L (0.7-2.1) 04/24/17 05:00 FiO2 32.0 % 04/24/17 05:00 Sodium 142 mmol/L (132-148) 05/01/17 07:00 Potassium 4.1 mmol/L (3.6-5.0) 05/01/17 07:00 Chloride 101 mmol/L (98-107) 05/01/17 07:00 Carbon Dioxide 30 mmol/L (21-33) 05/01/17 07:00 Anion Gap 15 (10-20) 05/01/17 07:00 BUN 23 mg/dL (7-21) H 05/01/17 07:00 Creatinine 0.8 mg/dL (0.8-1.5) 05/01/17 07:00 Est GFR ( Amer) > 60 05/01/17 07:00 Est GFR (Non-Af Amer) > 60 05/01/17 07:00 POC Glucose (mg/dL) 98 mg/dL (65-110) 05/01/17 12:27 Random Glucose 90 mg/dL (70-110) 05/01/17 07:00 Lactic Acid 1.1 mmol/L (0.7-2.1) 04/20/17 05:00 Calcium 9.8 mg/dL (8.4-10.5) 05/01/17 07:00 Phosphorus 5.9 mg/dL (2.5-4.5) H 05/01/17 07:00 Magnesium 1.9 mg/dL (1.7-2.2) 05/01/17 07:00 Total Bilirubin 0.6 mg/dL (0.2-1.3) 05/01/17 07:00 AST 43 U/L (17-59) 05/01/17 07:00 ALT 47 U/L (7-56) 05/01/17 07:00 Alkaline Phosphatase 115 U/L (38-126) 05/01/17 07:00 Ammonia 20 umol/L (9-33) 04/21/17 08:35 Total Protein 6.8 g/dL (5.8-8.3) 05/01/17 07:00 Albumin 3.6 g/dL (3.0-4.8) 05/01/17 07:00 Globulin 3.2 gm/dL 05/01/17 07:00 Albumin/Globulin Ratio 1.1 (1.1-1.8) 05/01/17 07:00 Triglycerides 190 mg/dL (35-160) H 04/23/17 05:20 Cholesterol 150 mg/dL (130-200) 04/23/17 05:20 LDL Cholesterol Direct 99 mg/dL (0-129) 04/23/17 05:20 HDL Cholesterol 25 mg/dL (29-60) L 04/23/17 05:20 Procalcitonin 0.20 NG/ML (0.19-0.49) 04/24/17 13:10 Arterial Blood Potassium 2.7 mmol/L (3.6-5.2) L 04/24/17 05:00 Venous Blood Potassium 4.3 mmol/L (3.6-5.2) 04/20/17 05:00 Urine Color Yellow (YELLOW) 04/26/17 21:40 Urine Appearance Clear (CLEAR) 04/26/17 21:40 Urine pH 6.0 (4.7-8.0) 04/26/17 21:40 Ur Specific Fred 1.020 (1.005-1.035) 04/26/17 21:40 Urine Protein Trace mg/dL (<30 mg/dL) H 04/26/17 21:40 Urine Glucose (UA) Negative mg/dL (NEGATIVE) 04/26/17 21:40 Urine Ketones Negative mg/dL (NEGATIVE) 04/26/17 21:40 Urine Blood Trace-intact (NEGATIVE) H 04/26/17 21:40 Urine Nitrate Negative (NEGATIVE) 04/26/17 21:40 Urine Bilirubin Negative (NEGATIVE) 04/26/17 21:40 Urine Urobilinogen 0.2 E.U./dL (<1 E.U./dL) 04/26/17 21:40 Ur Leukocyte Esterase Negative Huan/uL (NEGATIVE) 04/26/17 21:40 Urine RBC 2 - 5 /hpf (0-2) 04/26/17 21:40 Urine WBC 0 - 2 /hpf (0-6) 04/26/17 21:40 Ur Epithelial Cells 0 - 2 /hpf (0-5) 04/26/17 21:40 Calcium Oxalate Crystal Rare /hpf 04/26/17 21:40 Triple Phos Crystals Many /hpf 04/19/17 23:27 Urine Bacteria Rare (NEG) 04/26/17 21:40 Hyaline Casts 0 - 2 /hpf 04/26/17 21:40 Urine Opiates Screen Negative (NEGATIVE) 04/20/17 00:00 Urine Methadone Screen Positive (NEGATIVE) H 04/20/17 00:00 Ur Barbiturates Screen Negative (NEGATIVE) 04/20/17 00:00 Ur Phencyclidine Scrn Negative (NEGATIVE) 04/20/17 00:00 Ur Amphetamines Screen Negative (NEGATIVE) 04/20/17 00:00 U Benzodiazepines Scrn Positive (NEGATIVE) H 04/20/17 00:00 U Oth Cocaine Metabols Negative (NEGATIVE) 04/20/17 00:00 U Cannabinoids Screen Negative (NEGATIVE) 04/20/17 00:00 Alcohol, Quantitative < 10 mg/dL (0-10) 04/20/17 05:00 Hepatitis A IgM Ab Negative (NEGATIVE) 04/21/17 05:00 Hep Bs Antigen Negative (NEGATIVE) 04/21/17 05:00 Hep B Core IgM Ab Negative (NEGATIVE) 04/21/17 05:00 Hepatitis C Antibody Negative (NEGATIVE) 04/21/17 05:00 HIV 1&2 Ag/Ab, 4th Gen Nonreactive (Nonreactive) 04/21/17 05:00 Ur L.pneumophila Ag Negative (NEGATIVE) 04/21/17 19:53 Pneumocystis Source Serum 04/21/17 11:26 S. 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 Upon admission, CT head negative. CTA from [place] revealed 100% occlusion of left ICA. Patient was in the ICU, intubated and sedated. As sedation was titrated, it was noticed that patient was not moving his right side. At that point, MRI brain was done which showed acute and subacute infarcts embolic in nature. Echo was ordered and showed calcified AV and thickened MV. Neurology was consulted and on the case. Patient was on ASA, plavix, lipitor. Coumadin was later started. INR was monitored and therapeutic. Patient was evaluated by PT/OT/ST while inpatient. Overall, there was slight improvement in speech and right arm strength. For aspiration pneumonia, patient was on Merrem. ID was consulted and on the case. Urine strep/legionella were negative. Procal on admission was 0.60, procal normalized. Completed course of antibiotics. US abdomen was done which showed CBD dilatation 10 mm and intrahepatic biliary dilatation. Patient also had elevated alk phos. HIDA was negative. MRCP revealed choledocholithiasis. GI recommended eventual EUS. For hypertension, patient was started on Norvasc. The 2nd blood culture drawn on admission grew staph aureus and coagulase negative staph, likely contaminated. Repeat cultures were negative. Decker trial attempted , failed trial and decker was reinserted. On physical exam, patient was noted to have what appeared to be a testicular cyst. Testicular US showed small L hydrocele, Left sided varicocele, B/L epididymal cysts and 3mm L testicular calcification. Electrolytes and labs were monitored. Electrolytes repleted as needed. UDS on admission was positive for benzodiazapine and methadone. Methadone was tapered. Patient was evaluated by psych and started on Seroquel. Did not require methadone in the days prior to discharge. PT evaluated and recommended acute rehab. Patient was accepted to [facility]. All medications were reconciled. Patient was medically stable for discharge. Patient to follow up with Neurology and PMD within 1 week. Discharge Exam - Head Exam Head Exam: ATRAUMATIC, NORMAL INSPECTION - Eye Exam Eye Exam: EOMI, Normal appearance Pupil Exam: NORMAL ACCOMODATION - ENT Exam ENT Exam: Mucous Membranes Moist - Neck Exam Neck exam: Full Rom - Respiratory Exam Respiratory Exam: Clear to PA & Lateral, NORMAL BREATHING PATTERN, UNREMARKABLE. absent: Rales, Rhonchi, Wheezes - Cardiovascular Exam Cardiovascular Exam: REGULAR RHYTHM, +S1, +S2 - GI/Abdominal Exam GI & Abdominal Exam: Normal Bowel Sounds, Soft. absent: Guarding, Rebound, Rigid, Tenderness - Exam Additional comments: Decker in draining yellow urine - Extremities Exam Extremities exam: normal inspection, pedal pulses present - Back Exam Back exam: NORMAL INSPECTION - Neurological Exam Neurological exam: Alert, Oriented x3 Additional comments: Motor strength: Right UE 2/5 Right LE 0/5 Left UE 5/5 Left LE 5/5 - Psychiatric Exam Psychiatric exam: Flat Affect, Normal Mood - Skin Skin Exam: Dry, Normal Color, Warm Discharge Plan - Discharge Medications Prescriptions: amLODIPine [Norvasc] 10 mg PO DAILY #30 tab Aspirin [Aspirin Chewable] 81 mg PO DAILY #30 chew Atorvastatin [Lipitor] 20 mg PO DIN #30 tab Folic Acid 1 mg PO DAILY #30 tab QUEtiapine [Seroquel] 12.5 mg PO BID #60 tab Thiamine [Vitamin B1 Tab] 100 mg PO DAILY #30 tab Warfarin [Coumadin] 3 mg PO 1800 #30 tab - Follow Up Plan Condition: GUARDED Disposition: REHAB FACILITY/REHAB UNIT Instructions: Sepsis (GEN), Altered Mental Status (GEN) Additional Instructions: 1. Continue medications as prescribed 2. Follow up with PMD and Neurology within 1 week 3. Continue PT/ST/OT 4. Continue to Monitor INR 5. F/U GI outpatient for eventual EUS
[2017-05-01] MEDS: Chlorhexidine 0.12% Oral Sol 480 ml Bot PO SCH (17:53)
[2017-05-01 18:08] VITALS: BP 124/86; PULSE 87; RESP 20; TEMP 97.6; O2SAT 91
== END 2017-05-01 21:29 | DRG 882 ==
LOC: ED 23:08 → ERH 04-20 01:20 → CCU 04-20 02:49 → 3RNO 04-25 19:33
PROVIDERS: ADMIT Internal Medicine; ATTEND Internal Medicine
PROC: 5A1945Z Respiratory Ventilation, 24-96 Consecutive Hours (ICD-10-PCS; principal; 2017-04-20)
PROC: 0BH17EZ Insertion of Endotracheal Airway into Trachea, Via Natural or Artificial Opening (ICD-10-PCS; 2017-04-20)
DX: J96.01 Acute respiratory failure with hypoxia (principal); I63.412 Cerebral infarction due to embolism of left middle cerebral artery; I60.9 Nontraumatic subarachnoid hemorrhage, unspecified; J69.0 Pneumonitis due to inhalation of food and vomit; G92 Toxic encephalopathy; N17.9 Acute kidney failure, unspecified; K83.8 Other specified diseases of biliary tract; Z99.11 Dependence on respirator [ventilator] status; R65.10 Systemic inflammatory response syndrome (SIRS) of non-infectious origin without acute organ dysfunction; E87.5 Hyperkalemia; E87.6 Hypokalemia; F11.10 Opioid abuse, uncomplicated; I65.22 Occlusion and stenosis of left carotid artery; J44.9 Chronic obstructive pulmonary disease, unspecified; K86.89 Other specified diseases of pancreas; E83.42 Hypomagnesemia; D45 Polycythemia vera; E78.5 Hyperlipidemia, unspecified; F10.10 Alcohol abuse, uncomplicated; F17.200 Nicotine dependence, unspecified, uncomplicated; I10 Essential (primary) hypertension; I73.9 Peripheral vascular disease, unspecified; N43.3 Hydrocele, unspecified; I86.1 Scrotal varices; K80.50 Calculus of bile duct without cholangitis or cholecystitis without obstruction; N44.2 Benign cyst of testis; R47.01 Aphasia; Z79.82 Long term (current) use of aspirin; Z79.02 Long term (current) use of antithrombotics/antiplatelets; Z79.899 Other long term (current) drug therapy; R00.0 Tachycardia, unspecified; G81.91 Hemiplegia, unspecified affecting right dominant side; T40.3X1A Poisoning by methadone, accidental (unintentional), initial encounter; R16.1 Splenomegaly, not elsewhere classified

== ENCOUNTER 2018-07-03 21:07 | Emergency (ER) | payer MEDICAID ==
[2018-07-03 21:22] VITALS: BMI 21.1
[2018-07-03 21:26] VITALS: TEMP 99.1
--- NOTE | 2018-07-03 22:09 | ED PDOC ---
Arrival/HPI - General Chief Complaint: Weakness/Neurological Deficit Historian: Patient, Family - History of Present Illness Narrative History of Present Illness (Text): 07/03/18 22:08 53 year old male, whose past medical history includes hypertension, hy perlipidemia, Polycythemia Veria, CVA with left carotidc stenosis of 100%, presents to the emergency department complaining of not feeling well today. As per sister, patient has been saying he feels dizzy and does not want to eat or drink. Patient is complaining of chronic back pain, but denies any fever, chills, chest pain, shortness of breath, nausea, vomiting, diarrhea, urinary symptoms, neck pain, headache, or any other complaints. Time/Duration: Other (today) Symptom Onset: Gradual Symptom Course: Unchanged Activities at Onset: Light Context: Home Past Medical History - Provider Review Nursing Documentation Reviewed: Yes - Infectious Disease Hx of Infectious Diseases: None - Cardiac Hx Hypertension: Yes - Pulmonary Hx Respiratory Disorders: No - Neurological HX Cerebrovascular Accident: Yes - HEENT Hx HEENT Disorder: No - Renal Hx Renal Disorder: No - Endocrine/Metabolic Hx Endocrine Disorders: No - Hematological/Oncological Hx Blood Disorders: Yes Other/Comment: Polycythemia Vera - Integumentary Hx Dermatological Disorder: No Other/Comment: hole in the lower back,tatoos on the left arm and back of the neck,piercing onth left eyebrow - Musculoskeletal/Rheumatological Hx Falls: No - Gastrointestinal Hx Gastrointestinal Disorders: No - Genitourinary/Gynecological Hx Genitourinary Disorders: No - Psychiatric Hx Psychophysiologic Disorder: No Hx Substance Use: Yes (oxycodone,methadone) Other/Comment: chronic alcohol abuse,opiate abuse on methadone and oxycontin - Anesthesia Hx Anesthesia: No Family/Social History - Physician Review Nursing Documentation Reviewed: Yes Family/Social History: No Known Family HX Smoking Status: Current Some Days Smoker Hx Alcohol Use: Yes (12 pack beer;i bottle declan) Hx Substance Use: Yes (oxycodone,methadone) Allergies/Home Meds Allergies/Adverse Reactions: Allergies No Known Allergies Allergy (Verified 07/03/18 21:26) Review of Systems - Physician Review All systems were reviewed & negative as marked: Yes - Review of Systems Constitutional: absent: Fevers, Other (Chills) Respiratory: absent: SOB Cardiovascular: absent: Chest Pain Gastrointestinal: Appetite Changes. absent: Diarrhea, Nausea, Vomiting Genitourinary Male: absent: Dysuria, Frequency, Hematuria Musculoskeletal: Back Pain (Chronic). absent: Neck Pain Neurological: Dizziness. absent: Headache Physical Exam Vital Signs Reviewed: Yes Vital Signs Temp Pulse Resp BP Pulse Ox 07/03/18 21:22 99.1 F 124 H 20 129/84 97 Temperature: Afebrile Blood Pressure: Normal Pulse: Tachycardic Respiratory Rate: Normal Appearance: Positive for: Well-Appearing, Non-Toxic, Comfortable Pain Distress: None Mental Status: Positive for: Alert and Oriented X 3 (Selectively mute. Able to comply with verbal commands) - Systems Exam Head: Present: Atraumatic, Normocephalic Pupils: Present: PERRL Extroacular Muscles: Present: EOMI Conjunctiva: Present: Normal Mouth: Present: Moist Mucous Membranes Neck: Present: Normal Range of Motion Respiratory/Chest: Present: Clear to Auscultation, Good Air Exchange. No: Respiratory Distress, Accessory Muscle Use Cardiovascular: Present: Regular Rate and Rhythm, Normal S1, S2. No: Murmurs Abdomen: No: Tenderness, Distention, Peritoneal Signs Back: Present: Normal Inspection. No: Other (No lesions on back) Upper Extremity: Present: Normal Inspection. No: Cyanosis, Edema Lower Extremity: Present: Normal Inspection. No: Edema Neurological: Present: GCS=15, CN II-XII Intact, Speech Normal, Motor Func Grossly Intact (5/5 motor strength upper and lower extremity ), Normal Sensory Function Skin: Present: Warm, Dry, Normal Color. No: Rashes Psychiatric: Present: Alert, Oriented x 3, Normal Insight, Normal Concentration Medical Decision Making ED Course and Treatment: 07/03/18 22:09 Impression: 53 year old male present for complaints of not feeling well and decrease appetite. Patient is also complaining of dizziness and chronic back pain. Differential Diagnosis included but are not limited to: --PNA --UTI --Sepsis Plan: -- VBG -- Head CT w/o contrast -- Labs -- Chest X-ray -- Urinalysis -- Reassess and disposition Prior Visits: Notes and results from previous visits were reviewed. Progress Notes: 07/03/18 23:59 Isolated leukocytosis of 12.5 as well as lactate of 2.2 noted on labs. CTH negative for intracranial pathology as well as CXR revealing no focal consolidations or infiltrates. UA results pending. Patient and sister updated on results and desire to go home. Encouragment to continue surveillance for any worsening of symptoms and to return to ER should symptoms persist emphasized. Patient & sister demonstrates understanding. - Lab Interpretations Lab Results: 07/03/18 22:37 07/03/18 22:37 Lab Results 07/03/18 22:50: Urine Color Yellow, Urine Appearance Clear, Urine pH 6.0, Ur Specific Ponce >= 1.030, Urine Protein 100 H, Urine Glucose (UA) Negative, Urine Ketones Negative, Urine Blood Trace-intact H, Urine Nitrate Negative, Urine Bilirubin Negative, Urine Urobilinogen 0.2, Ur Leukocyte Esterase Negative, Urine RBC 2 - 5 H, Urine WBC 2 - 5, Ur Epithelial Cells 4 - 5, Urine Bacteria Mod 07/03/18 22:37: pO2 73 H, VBG pH 7.41, VBG pCO2 39.0 L, VBG HCO3 24.7, VBG Total CO2 25.9, VBG O2 Sat (Calc) 97.7 H, VBG Base Excess 0.1, VBG Potassium 3.8, Sodium 135.0, Chloride 99.0, Glucose 128 H, Lactate 2.2 H, FiO2 21.0, Venous Blood Potassium 3.8 07/03/18 22:37: Sodium 137, Chloride 99, Potassium 3.9, Carbon Dioxide 24, Anion Gap 17, BUN 17, Creatinine 0.9, Est GFR ( Amer) > 60, Est GFR (Non-Af Amer) > 60, Random Glucose 134 H, Calcium 9.8, Total Bilirubin 0.8, AST 29, ALT 20, Alkaline Phosphatase 125, Troponin I < 0.01, NT-Pro-B Natriuret Pep 358, Total Protein 8.9 H, Albumin 5.0 H, Globulin 3.9, Albumin/Globulin Ratio 1.3, Am ylase 80, Lipase 196 07/03/18 22:37: PT 12.1, INR 1.06, APTT 33.2 07/03/18 22:37: WBC 12.5 H, RBC 4.84, Hgb 14.6, Hct 42.8, MCV 88.4 D, MCH 30.2, MCHC 34.1, RDW 12.1, Plt Count 194, MPV 11.1 H, Gran % 77.4 H, Lymph % (Auto) 14.7 L, Titus % (Auto) 7.6 H, Eos % (Auto) 0.1 L, Baso % (Auto) 0.2, Gran # 9.69 H, Lymph # (Auto) 1.8, Titus # (Auto) 1.0 H, Eos # (Auto) 0.0, Baso # (Auto) 0.02 I have reviewed the lab results: Yes - RAD Interpretation Narrative RAD Interpretations (Text): EXAM: CT Head without Intravenous Contrast. Electronically signed on Jul 03, 2018 11:03:29 PM EST by: Jake Ni M.D IMPRESSION: No acute intracranial pathology identified. Radiology Orders: 07/03/18 21:34 HEAD W/O CONTRAST [CT] Stat CHEST PORTABLE [RAD] Stat Associate Professor Of Library Media: ED Physician, Radiologist - EKG Interpretation Interpreted by ED Physician: Yes Type: 12 lead EKG - Scribe Statement The provider has reviewed the documentation as recorded by the Scribe Radha Pradhan Provider Scribe Attestation: All medical record entries made by the Scribe were at my direction and personally dictated by me. I have reviewed the chart and agree that the record accurately reflects my personal performance of the history, physical exam, medical decision making, and the department course for this patient. I have also personally directed, reviewed, and agree with the discharge instructions and disposition. Disposition/Present on Arrival - Present on Arrival Any Indicators Present on Arrival: No History of DVT/PE: No History of Uncontrolled Diabetes: No Urinary Catheter: No History of Decub. Ulcer: No History Surgical Site Infection Following: None - Disposition Have Diagnosis and Disposition been Completed?: Yes Diagnosis: Decreased appetite, Irritability, Altered mental status Disposition: HOME/ ROUTINE Disposition Time: 00:05 Patient Plan: Discharge Condition: STABLE Discharge Instructions (ExitCare): Altered Mental Status (DC) Print Language: [place]ER Additional Instructions: All medical record entries made by the Scribe were at my direction and personally dictated by me. I have reviewed the chart and agree that the record accurately reflects my personal performance of the history, physical exam, medical decision making, and the department course for this patient. I have also personally directed, reviewed, and agree with the discharge instructions and disposition. Please follow up in clinic for 1-2 days after discharge Return to the ER if symptoms worsen Referrals: Sis Shah MD [Medical Doctor] - Follow up with primary [facility] at [facility] [place] [Outside] - Follow up with primary Forms: [employer] (Yi)
[2018-07-03 22:47] LABS: BASO # 0.02 K/mm3 (0.0-2.0); BASO % 0.2 % (0.0-3.0); EOS % 0.1 % (1.5-5.0); GRAN # 9.69 (1.4-6.5); GRAN % 77.4 % (50.0-68.0); HEMOGLOBIN 14.6 g/dL (14.0-18.0); LYMPH # 1.8 (1.2-3.4); LYMPH % 14.7 % (22.0-35.0); MEAN CELL VOLUME 88.4 fl (80.0-105.0); MEAN CORPUSCULAR HEMOGLOBIN 30.2 pg (25.0-35.0); MEAN CORPUSCULAR HGB CONC 34.1 g/dl (31.0-37.0); MEAN PLATELET VOLUME 11.1 fl (7.0-11.0); MONO % 7.6 % (1.0-6.0); RBC 4.84 10^6/uL (3.5-6.1); RED CELL DISTRIBUTION WIDTH 12.1 % (11.5-14.5); WHITE BLOOD COUNT 12.5 10^3/uL (4.5-11.0)
[2018-07-03 22:48] LABS: VENOUS BLOOD GAS BASE EXCESS 0.1 mmol/L (0.0-2.0); VENOUS BLOOD GAS PO2 73 mm/Hg (30-55); VENOUS BLOOD PH 7.41 (7.32-7.43)
[2018-07-03 22:53] LABS: INR 1.06; PARTIAL THROMBOPLASTIN TIME 33.2 Seconds (25.1-36.5); PROTHROMBIN TIME 12.1 SECONDS (9.4-12.5)
[2018-07-03 22:58] LABS: ALB/GLOB RATIO 1.3 (1.1-1.8); ALT/SGPT 20 U/L (7-56); AMYLASE 80 U/L (35-125); AST/SGOT 29 U/L (17-59); BLOOD UREA NITROGEN 17 mg/dL (7-21); CALCIUM 9.8 mg/dL (8.4-10.5); GFR NON-AFRICAN AMERICAN > 60; LIPASE 196 U/L (23-300)
[2018-07-03 23:10] LABS: B-TYPE NATRIURETIC PEPTIDE 358 pg/mL (0-450); TROPONIN I < 0.01 ng/mL
[2018-07-03] MEDS ORDERED: Sodium Chloride 0.9% 1,000 ML IV STA (23:18)
[2018-07-03 23:24] VITALS: O2SAT 95
[2018-07-03 23:26] LABS: URINE BILIRUBIN NEGATIVE (NEGATIVE); URINE BLOOD TRACE-INTACT (NEGATIVE); URINE GLUCOSE (UA) NEGATIVE (NEGATIVE); URINE LEUKOCYTE ESTERASE NEGATIVE Leu/uL (NEGATIVE); URINE PROTEIN 100 mg/dL (<30 mg/dL); URINE UROBILINOGEN 0.2 E.U./dL (<1 E.U./dL)
[2018-07-03 23:37] LABS: URINE APPEARANCE CLEAR (CLEAR); URINE COLOR YELLOW (YELLOW)
[2018-07-04 00:09] LABS: URINE BACTERIA MOD /hpf
[2018-07-04 00:16] VITALS: BP 140/82; PULSE 100; RESP 20
--- NOTE | 2018-07-04 09:21 | CARD ---
APPROVED REPORT Date of service: 07/03/2018 EKG Measurement Heart [id number] <Conclusion> Sinus tachycardia Otherwise normal ECG No change except lower voltage precordial leads
--- NOTE | 2018-07-04 10:13 | CT ---
Date of service: 07/03/2018 PROCEDURE: CT HEAD WITHOUT CONTRAST. HISTORY: ams COMPARISON: 05/01/2017. CT head 04/22/2017 MRI brain TECHNIQUE: Axial computed tomography images were obtained through the head/brain without intravenous contrast. Supplemental Coronal and Sagittal projections created and reviewed. Radiation dose: Total exam DLP = <inf_radiation_dlp> mGy-cm. This CT exam was performed using one or more of the following dose reduction techniques: Automated exposure control, adjustment of the mA and/or kV according to patient size, and/or use of iterative reconstruction technique. FINDINGS: HEMORRHAGE: No intracranial hemorrhage. BRAIN: No mass effect or edema. Periventricular small vessel disease which is asymmetrical involving the internal capsule, centrum region on the left. No similar findings identified on the right. VENTRICLES: Unremarkable. No hydrocephalus. CALVARIUM: Unremarkable. PARANASAL SINUSES: Unremarkable as visualized. No significant inflammatory changes. MASTOID AIR CELLS: Unremarkable as visualized. No inflammatory changes. OTHER FINDINGS: None. IMPRESSION: No acute intracranial abnormalities. No significant findings to account for the clinical presentation. No significant interval change compared to the prior examination(s). Concordant results (preliminary interpretation) provided by [employer] [facility]. Procedure Completed: 22:28. Preliminary Report: Dictated and Authenticated: 11:00. Final Interpretation: 10:10. July 04, 2018
--- NOTE | 2018-07-04 11:12 | RAD ---
Date of service: 07/03/2018 HISTORY: AMS COMPARISON: 04/25/2017 FINDINGS: LUNGS: No active pulmonary disease. PLEURA: No significant pleural effusion identified, no pneumothorax apparent. CARDIOVASCULAR: No atherosclerotic calcification present No radiographic findings to suggest acute or significant cardiovascular disease. OSSEOUS STRUCTURES: No significant abnormalities. VISUALIZED UPPER ABDOMEN: Normal. OTHER FINDINGS: None. IMPRESSION: No active disease. Resolution of previously identified infiltrates.
== END 2018-07-04 00:16 | disposition home or self-care (01) ==
LOC: ED 21:07
DX: R41.82 Altered mental status, unspecified (principal); R45.4 Irritability and anger; R63.0 Anorexia; I10 Essential (primary) hypertension; E78.5 Hyperlipidemia, unspecified; D45 Polycythemia vera; Z86.73 Personal history of transient ischemic attack (TIA), and cerebral infarction without residual deficits; F17.210 Nicotine dependence, cigarettes, uncomplicated
CPT/HCPCS: 70450; 71045; 80053; 81001; 82150; 82803; 83690; 83880; 84484; 85025; 85610; 85730; 93005; 96360; 99285; J7030